=== PATIENT | female | born 1940 | race Caucasian/White ===

== ENCOUNTER → 2022-01-18 12:08 | Outpatient (BNVA) | payer MEDICARE, SELFPAY | PROVIDERS: Family Provider Family Medicine; PCP Family Medicine; Visit Provider Family Medicine | DX: M19.90 Unspecified osteoarthritis, unspecified site (principal); R79.89 Other specified abnormal findings of blood chemistry; R03.0 Elevated blood-pressure reading, without diagnosis of hypertension; F41.9 Anxiety disorder, unspecified; E11.9 Type 2 diabetes mellitus without complications | CPT/HCPCS: 80053; 80061; 82607; 83036 ==

== ENCOUNTER 2022-03-14 10:44 | Outpatient (CLI) | payer MEDICARE, SELFPAY ==
--- NOTE | 2022-03-14 10:58 | MM_ITS ---
WS: [id number] BILATERAL SCREENING DIGITAL BREAST TOMOSYNTHESIS MAMMOGRAM WITH CAD HISTORY: SCREENING COMPARISON: 02/23/2021, 02/11/2020, 12/01/2015 Bilateral CC and MLO views with tomosynthesis and synthetic mammography submitted. Computer aided det ection analyzed. Breast composition: There are scattered areas of fibroglandular density. No suspicious masses, microc alcifications or architectural distortion. Focal asymmetry seen in the anterior LEFT breast has been present on multiple prior examinations over multiple years. Benign calcifications in each breast. MM/[place] [id number] IMPRESSION: BI-RADS: 2-Benign FOLLOW UP: 1 Year Follow-up
== END 2022-03-14 10:45 | disposition home or self-care (01) ==
PROVIDERS: PCP Family Medicine; Visit Provider Family Medicine
DX: Z12.31 Encounter for screening mammogram for malignant neoplasm of breast (principal)
CPT/HCPCS: 77063; 77067

== ENCOUNTER → 2022-09-29 15:17 | Outpatient (BNVA) | payer MEDICARE, SELFPAY | PROVIDERS: PCP Family Medicine; Visit Provider Orthopaedic Surgery | DX: M48.062 Spinal stenosis, lumbar region with neurogenic claudication (principal); M47.816 Spondylosis without myelopathy or radiculopathy, lumbar region; M25.562 Pain in left knee; M25.561 Pain in right knee | CPT/HCPCS: 72110; 73560; 73565; 99204 ==

== ENCOUNTER 2022-10-11 13:19 | Outpatient (CLI) | payer MEDICARE, SELFPAY ==
--- NOTE | 2022-10-11 13:45 | MR_ITS ---
WS: [id number] MRI LUMBAR SPINE NONCONTRAST HISTORY: pain COMPARISON: 09/30/2014 TECHNIQUE: Sagittal and axial multisequence imaging is submitted. Advanced degenerative disc disease and degenerative curvature of the cervical, thoracic and lumbar sp eva. Increase in the lumbar lordosis and reverse S-shaped curvature of the lumbar spine. Significant progr ession of degenerative disc disease and spondylosis since 2014. No acute fractures or marrow edema. 3 to 4 mm retrolisthesis of L1-L4. Conus terminates normally at L1-2 disc level. L1-L2: Diffuse disc bulging and osteophytic ridging. Bilateral facet joint arthritis. Mild RIGHT suba rticular recess stenosis due to scoliosis and foraminal narrowing. L2-L3: Diffuse asymmetric annular disc bulging with bilateral facet joint arthritis, RIGHT greater th an LEFT. RIGHT facet arthritis encroaching into the thecal sac contacting the nerve roots. No central stenosis. Mild bilateral subarticular recess and foraminal stenosis. L3-L4: Diffuse annular disc bulging and osteophytic ridging with facet and ligamentum flavum arthriti s. Central disc protrusion. Moderate to severe central, bilateral subarticular recess and foraminal s tenosis. L4-L5: Mild annular disc bulging with facet and ligamentum flavum arthritis. LEFT subarticular recess and foraminal disc protrusion extends slightly below the disc space. Moderate to severe central with bilateral subarticular recess and LEFT foraminal stenosis. Mild RIGHT foraminal narrowing. There is significant encroachment upon the traversing LEFT L5 nerve root. L5-S1: Mild disc bulging and small vertebral body osteophytes. Moderate LEFT foraminal stenosis. Mild RIGHT foraminal stenosis. Severe LEFT facet joint arthritis. Mild ectasia aorta. Maximum diameter of 2.6 cm. MR/MR lumbar spine wo con* [id number] IMPRESSION: 1. Severe diffuse spondylosis throughout the cervical, thoracic and lumbar spi mary with progression since 2014. Degenerative scoliosis. 2. Moderate to severe central with bilateral subarticular recess and LEFT fora maría elena stenosis at L4-5. LEFT subarticular recess disc protrusion with significa nt contact on the traversing L5 nerve root. 3. Moderate to severe central, bilateral subarticular recess and foraminal soledad nosis at L3-4. 4. Mild bilateral subarticular recess and foraminal stenosis at L2-3. 5. Moderate LEFT foraminal stenosis at L5-S1 with severe LEFT facet joint arth ritis. 6. No marrow edema or acute fracture.
== END 2022-10-11 13:20 | disposition home or self-care (01) ==
LOC: RAD 13:20
PROVIDERS: PCP Family Medicine; Visit Provider Orthopaedic Surgery
DX: M41.9 Scoliosis, unspecified (principal)
CPT/HCPCS: 72148

== ENCOUNTER → 2022-11-08 12:59 | Outpatient (BNVA) | payer MEDICARE, SELFPAY | PROVIDERS: PCP Family Medicine; Visit Provider Orthopaedic Surgery | DX: M48.062 Spinal stenosis, lumbar region with neurogenic claudication (principal) | CPT/HCPCS: 99214 ==

== ENCOUNTER 2022-11-16 07:09 | Day surgery (SDC) | payer MEDICARE, SELFPAY ==
--- NOTE | 2022-11-11 10:54 | ECG_ITS ---
[facility] Test Date: 2022-11-11 Pat Name: Cheyenne Hall Department: Room: Gender: Female Carton Inspector: : 1940 Requested By: Kylie Kelsey Order Number: [id number] Quyen MD: Jessenia Gupta M.D. Measurements Intervals [place] Rate: 67 P: 48 FL: 142 QRS: 32 QRSD: 87 T: 32 QT: 374 QTc: 397 Interpretive Statements SINUS RHYTHM WITH SINUS ARRHYTHMIA No previous ECG available for comparison Electronically Signed On 11-11-2022 23:16:06 CDT by Jessenia Gupta M.D. [email or web address] countyModaMi[facility] [place].[employer]/[id number]
[2022-11-11 11:50] LABS: Anion Gap 16.7 (5-19); Blood Urea Nitrogen 14 mg/dL (8-23); Calcium 9.4 mg/dL (8.5-10.5); Carbon Dioxide 23 mmol/L (22-29); Chloride 103 mmol/L (98-107); Glucose 121 mg/dL (65-115); Osmolality Calculated 288 mOsm/kg (285-295); Potassium 4.7 mmol/L (3.5-5.1); Sodium 138 mmol/L (136-145)
--- NOTE | 2022-11-11 12:04 | ANES.PREANE2 ---
Pre-Anesthetic Assessment Height/Weight: Height 1.57 m Operation Date: 11/16/22 07:00 Proposed Procedures p Lumbar Spine Decompression: RT L4/5 22872(Right) - Travis Hernandes, Familial anesthetic complications: None Social No alcohol and No tobacco Exam alert, oriented x 3, clear to auscultation bilaterally and regular rate & rhythm Airway Mallampati: Class I Dentition: full CV/HEM Hypertension GI Gastroesophageal Reflux Disease Metabolic Diabetes Mellitus and Hyperlipidemia Anesthetic Plan ASA status: 3 Anesthesia: General Risk of > 500 ml blood loss (7ml/kg in children): No Medications/Allergies Home Medications Medication Instructions Recorded Confirmed Last Taken Type alprazolam 0.25 mg tablet (Xanax) 0.25 mg PO TID PRN anxiety #90 tabs 04/29/22 11/11/22 Unknown Rx meloxicam 15 mg tablet 15 mg PO DAILY arthritis pains #90 07/19/22 11/11/22 Unknown Rx tabs pantoprazole 40 mg tablet,delayed 40 mg PO DAILY for stomach #90 tabs 07/19/22 11/11/22 Unknown Rx release metformin 500 mg tablet 500 mg PO BID 09/29/22 11/11/22 Unknown History atorvastatin 10 mg tablet 10 mg PO DAILY 11/11/22 11/11/22 Unknown History losartan 50 mg PO DAILY 11/11/22 11/11/22 Unknown History Allergies Allergy/AdvReac Type Severity Reaction Status Date / Time Sulfa (Sulfonamide Allergy ALGY-Hives Verified 11/08/22 13:06 Antibiotics) Data Anesthesia 11/11/22 11:16 BMP 11/11/22 11:16 Sodium 138 Potassium 4.7 Chloride 103 Carbon Dioxide 23 BUN 14 Creatinine 0.8 Glucose 121 H Calcium 9.4 Cardiac Studies: No Data to Display
--- NOTE | 2022-11-14 09:38 | ANES.PAUD2 ---
Pre-Anesthetic Update Pre-Anesthetic Assessment: Date of Surgery/Procedure: 11/14/22 Proposed Procedure: Operation Date: 11/16/22 09:40 Proposed Procedures p Lumbar Spine Decompression: RT L4/5 [id number](Right) - Travis Hernandes, DO Any changes to Pre-Anesthetic Assessment?: No Exam: Pre-Anes Outpt Exam: alert, oriented x 3, clear to auscultation bilaterally and regular rate & rhythm Cardiac Studies: No Data to Display
[2022-11-16 07:24] VITALS: BP 170/91; PULSE 104; RESP 18; TEMP 36.3; O2SAT 95
[2022-11-16 07:28] VITALS: BMI 27.8
[2022-11-16] MEDS: sodium chloride 0.9% 1,000 ML 30 ML IV (07:41)
--- NOTE | 2022-11-16 09:12 | W.PM.OPSUD ---
Surgery/Procedure H&P Update DATE OF PROCEDURE: November 16, 2022 DATE H&P PERFORMED: 11/08/22 H&P UPDATE INFORMATION: I have reviewed H&P completed within last 30 days, I have examined patient prior to procedure and No changes to prior documentation PREOP DIAGNOSIS: L5 radiculopathy, lumbar stenosis L4-5 PLANNED PROCEDURE: Operation Date: 11/16/22 08:50 Proposed Procedures p Lumbar Spine Decompression: RT L4/5 [id number](Right) - Travis Hernandes DO
--- NOTE | 2022-11-16 09:32 | P.ANESUD_ITS ---
Pre-Anesthetic Update Pre-Anesthetic Assessment: Date of Surgery/Procedure: 11/16/22 Preop Melanie gnosis: L5 radiculopathy, lumbar stenosis L4-5 Proposed Procedure: Operation Date: 11/16/22 08:50 Proposed Procedures p Lumbar Spine Decompression: RT L4/5 [id number](Right) - Travis Hernandes, DO Any changes to Pre-Anesthetic Assessment?: No Last Intake: Intake Last Liquid Date 11/15/22 Last Liquid Time 21:30 Last Solid Date 11/15/22 Last Solid Time 21:30 Vitals: Temperature 97.4 F L 11/16/22 07:24 Temperature Source Temporal Artery S can 11/16/22 07:24 Pulse Rate 104 H 11/16/22 07:24 Respiratory Rate 18 11/16/22 07:24 Blood Pressure 170/91 11/16/22 07:24 Blood Pressure Ambika n 117 11/16/22 07:24 Pulse Oximetry 95 11/16/22 07:24 Oxygen Delivery Me thod 11/16/22 07:36 Exam: Pre-Anes Outpt Exam: alert, oriented x 3, clear to auscultation bilaterally and regular rate & rhythm Cardiac Studies: No Data to Display
[2022-11-16] MEDS: ceFAZolin 2,000 MG in sodium chloride 0.9% (plus) 50 ML 100 MG IV (09:56)
[2022-11-16] MEDS: lidocaine-epi 2% 20 mL INJ INJECTION (10:52)
[2022-11-16 11:22] VITALS: BP 146/88; PULSE 100; RESP 14; TEMP 36.1; O2SAT 99
[2022-11-16 11:25] VITALS: BP 138/76; PULSE 92; RESP 15; O2SAT 99
[2022-11-16 11:29] VITALS: BP 134/91; PULSE 97; RESP 19; O2SAT 99
--- NOTE | 2022-11-16 11:31 | P.OP_ITS ---
Operative Report Date of procedure: November 16, 2022 Pre-op diagnosis: Preop Diagnosis L5 radiculopathy, lumbar stenosis L4-5 Post-op diagnosis: same Procedure done: 1. L4/5 laminectomy with partial facetectomy Surgeon: Travis Hernandes Compensation And Benefits Analyst: Odell Darnell Compensation And Benefits Analyst: The children's nursery assistant, Odell Darnell, LIZETH was needed for his expertise under the microscope. He was important and necessary throughout the procedure to complete in a safe and timely manner. He assisted with patient positioning prepping and draping tissue retraction suctioning of the operative field protection of the dural sac and tissue closure Estimated blood loss (mL): 10 Procedure: 1. L4/5 laminectomy with partial facetectomy Patient is brought to the operative suite. After undergoing anesthesia they are placed in the prone position. All areas of impingement are well padded. Patient is then prepped and draped in the normal sterile fashion. A skin incision is made over the L4/5 level. This is confirmed under c-arm guidance. A series of dilators are passed and the tubular retractor is docked on the L4 lamina. A bovie is used to clear the soft tissue off the lamina and the L 4/5 facet joint. A high speed alla is then used to perform the laminectomy and take down the medial aspect of the L 4/5 facet joint. A kerrison rongeure was then used to take down the remaining lamina and smooth the edge of the laminectomy up to the point where the ligamentum flavum attaches. Attention was then brought to the medial aspect of the facet joint. The rem aining medial aspect of the superior and inferior aspect of the facet joint were taken down with the kerrison from the pedicle of L4 to L 5. The facet joint had significant hypertrophy. Attention was then brought to the Ligamentum Flavum. The ligament was taken down from the lamina of L4 to L5 and out medially to the remaining facet joint. The ligament was []. The dura was then exposed. The dura was in good repair. The L4 nerve was then traced with a curette out the L4/5 foramen and found to be adequately decompressed. The L5 nerve was traced with a curette around the L5 pedicle. The lateral recess was opened with a kerrison helping to further decompress the L5 nerve. Wound is then irrigated copiously with saline and surgiflo is used to stop any bleeding. The tubular retractor is removed and the wound is closed with vicryl and monocryl suture. Glue is then used to protect the wound. A sterile dressing is then placed. Patient was then placed in the supine position and transferred to the PACU in stable condition.
[2022-11-16 11:35] VITALS: BP 136/70; PULSE 93; RESP 18; TEMP 36.5; O2SAT 96
[2022-11-16] MEDS: HYDROcodone-acetaminophen 5-325 mg Tablet 1 TAB PO (11:50)
[2022-11-16 11:53] VITALS: BP 140/89; PULSE 80; RESP 18; O2SAT 96
--- NOTE | 2022-11-16 16:44 | ANE.PACU2 ---
Inpatient post-anesthesia follow up: Airway intact: Yes Vital signs: Temperature 97.7 F Pulse Rate 80 Respiratory Rate 18 Blood Pressure 140/89 Pulse Oximetry 96 Oxygen Delivery Me thod Room Air Oxygen Flow Rate 6 Fraction of Inspir ed Oxygen Hydration adequate: Yes Nausea and vomiting: No Pain level: 3 Mental status: Baseline
== END 2022-11-16 12:22 | disposition home or self-care (01) ==
PROVIDERS: Anesthesiology; PCP Family Medicine; Visit Provider Orthopaedic Surgery
PROC: (CPT 63005; principal; 2022-11-16 08:40)
DX: M48.061 Spinal stenosis, lumbar region without neurogenic claudication (principal); I10 Essential (primary) hypertension; K21.9 Gastro-esophageal reflux disease without esophagitis; E11.9 Type 2 diabetes mellitus without complications; E78.5 Hyperlipidemia, unspecified; Z79.84 Long term (current) use of oral hypoglycemic drugs
CPT/HCPCS: 63047; 72020; 76000; 80048; 93005; J0690; J1100; J1170; J2370; J2405; J2704; J2710; J3010; J3490; J7030

== ENCOUNTER 2022-11-17 19:26 | Emergency (ER) | payer MEDICARE, SELFPAY ==
[2022-11-17 19:33] VITALS: BP 219/115; PULSE 102; RESP 19; TEMP 36.7; O2SAT 96; BMI 27.6
--- NOTE | 2022-11-17 19:42 | W.ED.ALLEREA ---
HPI - Allergic Reaction General: Chief complaint: Allergic Reaction Stated complaint: possible allergic reaction Time Seen by Provider: 11/17/22 19:42 History of Present Illness: HPI narrative: Ms. Hall is an 82-year-old lady with history of back surgery yesterday presented to the emergency department for concern over allergic reaction. She reports taking hydrocodone for the first time and first noticing some redness on her cheeks. She subsequently has developed some tightness and itching in her throat as well as shortness of breath. Denies other signs of allergic reaction. Has not had hydrocodone before. No other specific changes in health, exacerbating, or alleviating factors identified. Onset (ago): hour(s) Exposure: medication Associated symptoms: Reports itching and other Severity: moderate Previous Allergic Reaction History: none Review of Systems General: Reports: 10 or more systems reviewed and unremarkable except in HPI and below PFSH ED PFSH: Medical History (Updated 11/30/22 @ 02:36 by Bari Araujo MD) GERD (gastroesophageal reflux disease) Lumbar stenosis with neurogenic claudication Surgical History (Updated 11/30/22 @ 02:36 by Bari Araujo MD) History of back surgery Physical Exam Const: COMMON NORMALS: alert GENERAL APPEARANCE: cooperative and well developed HENMT: COMMON NORMALS: normocephalic and atraumatic HEAD & SCALP: normocephalic and atraumatic THROAT: posterior oropharynx normal OTHER: No uvular edema or tongue edema, no evidence of posterior pharyngeal anatomy distortion. Eye: COMMON NORMALS: conjunctivae normal CONJUNCTIVA: Yes conjunctivae normal SCLERA: sclerae normal Neck/C-Spine: COMMON NORMALS: supple GENERAL: Yes trachea midline Resp: COMMON NORMALS: clear to auscultation bilaterally EFFORT & INSPECTION: Yes able to speak in complete sentences AUSCULTATION: clear to auscultation bilaterally Cardio: COMMON NORMALS: regular rate and regular rhythm RATE: regular rate RHYTHM: regular rhythm GI: COMMON NORMALS: Soft to palpation PALPATION: Yes Soft to palpation and No Tenderness to palpation present (GI) PERCUSSION: normal to percussion Extremity: GENERAL: Yes normal exam except as noted and No edema Neuro: COMMON NORMALS: moves all extremities SENSORIUM/ORIENTATION: Yes alert and No Orientation impaired Psych: COMMON NORMALS: mental status grossly normal and Normal thought process present THOUGHT PROCESS: Normal thought process present Skin: NARRATIVE SKIN EXAM: Erythematous rash on bilateral cheeks, no vesicular lesions Course Vital Signs: Vital signs: Vital Signs Temperature 98.0 F 11/17/22 19:33 Pulse Rate 94 11/17/22 21:24 Respiratory Rate 16 11/17/22 21:24 Blood Pressure 179/97 11/17/22 21:24 Pulse Oximetry 97 11/17/22 21:24 Oxygen Delivery Me thod 11/17/22 21:06 MDM - Allergic Reaction Medical Decision Making 82-year-old lady presenting to the emergency department for possible allergic reaction. She does have mild rash on her face. No evidence of anaphylaxis. Reports some improvement in symptoms spontaneously prior to arrival. Patient treated with steroids, analgesia, Pepcid, Benadryl with continued improvement. Most likely etiology of patient's symptoms is allergic reaction. I discussed possibility of class allergy however will try oxycodone. Medications for continued allergic reaction treatment to be prescribed. The results of ED evaluation were discussed with the patient including prescriptions and/or symptomatic cares (if applicable) including appropriate and responsible use, followup plan, and return precautions. The patient verbalized understanding and felt safe for discharge. Medical Records I reviewed the patient's medical records. Lab Data I reviewed the patient's lab results. Radiology Impressions Chest X-Ray 11/17/22 19:45 IMPRESSION: 1. No acute cardiopulmonary process. 2. Incidental/nonacute findings are listed in the report. Discharge Plan Discharge Patient Disposition: Home Clinical Impression: Allergic reaction Condition: Stable Prescriptions: New oxycodone 5 mg tablet 5 mg PO Q4H PRN (Reason: pain) Qty: 20 0RF EpiPen 2-Jaret 0.3 mg/0.3 mL auto-injector 0.3 mg IM Q10M PRN (Reason: anaphylaxis) Qty: 2 0RF Rx Instructions: for 2 doses No Action meloxicam 15 mg tablet 15 mg PO DAILY Qty: 90 3RF pantoprazole 40 mg tablet,delayed release (DR/EC) 40 mg PO DAILY Qty: 90 3RF metformin 500 mg tablet 500 mg PO BID alprazolam [Xanax] 0.25 mg tablet 0.25 mg PO TID PRN (Reason: anxiety) Qty: 90 5RF losartan 50 mg PO DAILY atorvastatin 10 mg tablet 10 mg PO DAILY hydrocodone-acetaminophen 5-325 mg tablet 1 - 2 tab PO .Q4-6H Qty: 40 0RF Discharge Orders: Discharge ED (Routine); Ordered 11/17/22 Ordered By: Bari Araujo Referrals: Cheko Palacios DO [Primary Care Provider] - Discharge Diet: Usual diet Discharge Activity: Limit activity as instructed Patient Instructions: General Allergic Reaction (ED), Opioid Safety Activity Restrictions/Additional Instructions: Thank you for visiting the emergency department. You were seen and evaluated for allergic reaction symptoms. We are pleased that you had improvement with treatment. The exact cause your symptoms is unclear that may be related to hydrocodone. I will prescribe oxycodone, as discussed this may also cause a reaction so please watch carefully. I will also prescribe Pepcid and a short course of steroids, you may use Benadryl per packaging directions for symptoms despite the other treatment. Please follow-up with your primary care provider. Return for recurrence of symptoms or anything else that you are concerned about and feel needs emergency department evaluation. For recurrence of severe reaction such as respiratory distress, tongue swelling, lip swelling I will also prescribe EpiPen. Coding Level of Care Code ED Franchise Manager for Rene Haney
--- NOTE | 2022-11-17 19:45 | XRR_ITS ---
PROCEDURE INFORMATION: Exam: XR Chest Exam date and time: 11/17/2022 7:50 PM Age: 82 years old Clinical indication: Shortness of breath; Additional info: SOB TECHNIQUE: Imaging protocol: Radiologic exam of the chest. Views: 1 view. COMPARISON: No relevant prior studies available. FINDINGS: Lungs: Lungs are clear bilaterally. Pleural spaces: No pleural effusion. No pneumothorax. Heart/Mediastinum: The cardiac silhouette is mildly enlarged. Mediastinal contours are unremarkable. Vasculature: Vascular calcifications in the aorta. Bones/joints: Degenerative changes in the spine and shoulders. Bones are diffusely osteopenic. Mild dextroscoliosis in the visualized spine. XR/XR chest 1V portable [id number] IMPRESSION: 1. No acute cardiopulmonary process. 2. Incidental/nonacute findings are listed in the report.
[2022-11-17 19:52] VITALS: O2SAT 94
[2022-11-17] MEDS: diphenhydrAMINE 50 mg/mL SDV 1mL 25 MG IVP (20:19)
[2022-11-17] MEDS: famotidine 20 mg/2 mL INJ 40 MG IVP (20:21)
[2022-11-17 20:22] VITALS: BP 185/84; PULSE 94; RESP 16; O2SAT 94
[2022-11-17 21:06] VITALS: BP 179/97; PULSE 89; RESP 16; O2SAT 96
[2022-11-17] MEDS: fentaNYL 50 mcg/mL INJ 2mL IVP (21:15)
[2022-11-17 21:24] VITALS: BP 179/97; PULSE 94; RESP 16; O2SAT 97
== END 2022-11-17 21:25 | disposition home or self-care (01) ==
PROVIDERS: Emergency Provider Emergency Medicine; PCP Family Medicine
DX: T78.40XA Allergy, unspecified, initial encounter (principal); Z79.84 Long term (current) use of oral hypoglycemic drugs; X58.XXXA Exposure to other specified factors, initial encounter
CPT/HCPCS: 71045; 96374; 96375; 99284; J1200; J2930; J3010; J3490

== ENCOUNTER → 2022-12-01 10:00 | Outpatient (BNVA) | payer MEDICARE, SELFPAY | PROVIDERS: PCP Family Medicine; Visit Provider Physician Assistant | DX: Z98.890 Other specified postprocedural states (principal) | CPT/HCPCS: 99024 ==

== ENCOUNTER → 2023-01-03 09:59 | Outpatient (BNVA) | payer MEDICARE, SELFPAY | PROVIDERS: PCP Family Medicine; Visit Provider Physician Assistant | DX: Z98.890 Other specified postprocedural states (principal) | CPT/HCPCS: 99024 ==

== ENCOUNTER 2023-03-16 09:59 | Outpatient (CLI) | payer MEDICARE, SELFPAY ==
--- NOTE | 2023-03-16 10:08 | MM_ITS ---
WS: [id number] BILATERAL SCREENING DIGITAL TOMOSYNTHESIS MAMMOGRAM WITH CAD HISTORY: SCREENING COMPARISON: 03/14/2022, 02/23/2021, 02/11/2020 Bilateral CC and MLO views with tomosynthesis and synthetic mammography submitted. Computer aided det ection analyzed. Breast composition: There are scattered areas of fibroglandular density. No suspicious masses, microc alcifications or architectural distortion. Focal 10 mm asymmetry in the anterior LEFT breast just lat eral to the nipple similar in size and appearance to the study from 2019. Benign calcifications withi n each breast. MM/[place] [id number] IMPRESSION: BI-RADS: 2-Benign FOLLOW UP: 1 Year Follow-up
== END 2023-03-16 10:00 | disposition home or self-care (01) ==
LOC: RAD 10:03 → MOBLMAM 10:07
PROVIDERS: PCP Family Medicine; Visit Provider Family Medicine
DX: Z12.31 Encounter for screening mammogram for malignant neoplasm of breast (principal)
CPT/HCPCS: 77063; 77067

== ENCOUNTER 2023-04-15 09:14 | Emergency (ER) | payer MEDICARE, SELFPAY ==
[2023-04-15 09:16] VITALS: BP 195/86; PULSE 78; RESP 14; TEMP 36.7; O2SAT 97; BMI 26.2
--- NOTE | 2023-04-15 09:37 | ED_ITS ---
HPI - General Adult General: Chief complaint: General Medical Stated complaint: swelling on right side of neck Time Seen by Provider: 04/15/23 09:19 Source: patient Mode of arrival: ambulatory Limitations: no limitations History of Present Illness: 82yo Female presents with family for evaluation of intermittent swelling on the right side of her jaw when she is eating. Patient reports that started last night, so she applied a warm compress and it went down. She states that this morning when she was eating toast it swelled up again, but again resolved after a warm compress. Patient reports that she does have discomfort when it is swollen, but not so much when it is back to normal. Patient states that she is currently on prednisone 5 mg tablets and is being treated by her primary care for some sort of viral infection that caused peeling to the bottom of her feet. Patient reports that she does have a follow-up with her primary care in the next couple of weeks, but the swelling was concerning. She denies any fever, chills, body aches, difficulty swallowing, feeling poorly, any other concern at this time. Associated symptoms: Deny headache(s), nausea, rash or vomiting Review of Systems General: Reports: 10 or more systems reviewed and unremarkable except in HPI and below Const: Denies: fever(s), chills or body aches ENMT: Reports: other (intermittent swelling right face); Denies: throat pain, odynophagia, mouth pain or dental pain GI: Denies: abdominal pain, nausea or vomiting Skin/Breast: Denies: rash or erythema Neuro: Denies: headache(s) [facility] ED PFSH: Medical History GERD (gastroesophageal reflux disease) Lumbar stenosis with neurogenic claudication Surgical History History of back surgery Physical Exam Const: COMMON NORMALS: no acute distress, patient oriented x3 and alert GENERAL APPEARANCE: cooperative ORIENTATION/CONSCIOUSNESS: Yes awake OTHER: Patient is sitting upright on the stretcher in no acute distress. She is able to give history with no difficulty. She is interactive with exam appropriately. Family is at bedside HENMT: COMMON NORMALS: normocephalic, atraumatic, external ears normal, Normal external nose present, moist oral mucous membranes and gingiva normal HEAD & SCALP: normocephalic and atraumatic FACE & SINUS: normal facial exam and face symmetric; no ecchymosis, no erythema and no edema NOSE: Normal external nose present EXTERNAL EAR: Yes external ears normal MOUTH: Normal oral and palatal mucosa present, lip normal, tongue normal and Normal salivary glands and ducts present; no malodorous breath Eye: GENERAL EYE: appearance normal, both eyes and all related structures Chest: CHEST: Yes Symmetrical chest wall rise Resp: COMMON NORMALS: normal respiratory effort Extremity: COMMON NORMALS: full ROM Neuro: COMMON NORMALS: patient oriented x3 and moves all extremities SENSORIUM/ORIENTATION: Yes alert Psych: COMMON NORMALS: cooperative and speech normal ATTITUDE: Yes calm SPEECH: Yes normal speech Course Vital Signs: Vital signs: Vital Signs Temperature 98.0 F 04/15/23 09:16 Pulse Rate 78 04/15/23 09:16 Respiratory Rate 14 04/15/23 09:16 Blood Pressure 195/86 04/15/23 09:16 Pulse Oximetry 97 04/15/23 09:16 Oxygen Delivery Me thod Room Air 04/15/23 09:16 MDM - General Adult Medical Decision Making 82yo Female here with friend/family for intermittent swelling of the right face/jaw that started last night when she was eating, resolved with warm compresses, but came back this morning when she was eating toast and again resolved with warm compress. Patient reports that she does not have any pain or discomfort when the swelling has resolved. She denies any fever, chills, body aches, difficulty swallowing, previous incidences, any other concerns at this time. Patient is nontoxic in appearance. Vital signs are stable. Exam is benign. Discussed with patient and family this is likely a salivary stone. Discussed with patient increasing fluids and saliva will help with the passage of the stone. Patient did report relief as she was concerned of the intermittent swelling. Discussed signs/symptoms of infected salivary stone. Recommend she follow-up with primary care Monday with an update of symptoms and possible recheck. Advised return to the emergency department if any rapid worsening symptoms and as needed. Differential Diagnosis Salivary stone, infected salivary stone, dental infection Discharge Plan Discharge Patient Disposition: Home Clinical Impression: Salivary stone Condition: Stable Prescriptions: No Action prednisone 5 mg tablet 5 mg PO DAILY Qty: 90 1RF oxycodone 5 mg tablet 5 mg PO Q4H PRN (Reason: pain) 30 Days Qty: 60 0RF alprazolam [Xanax] 0.25 mg tablet 0.25 mg PO TID PRN (Reason: anxiety) Qty: 90 5RF meloxicam 15 mg tablet 15 mg PO DAILY Qty: 90 3RF pantoprazole 40 mg tablet,delayed release (DR/EC) 40 mg PO DAILY Qty: 90 3RF metformin 500 mg tablet 500 mg PO BID losartan 50 mg PO DAILY EpiPen 2-Jaret 0.3 mg/0.3 mL auto-injector 0.3 mg IM Q10M PRN (Reason: anaphylaxis) Qty: 2 0RF Rx Instructions: for 2 doses Discharge Orders: Discharge ED (Routine); Ordered 04/15/23 Ordered By: Victor Hugo Stevens Referrals: Cheko Palacios DO [Primary Care Provider] - Discharge Diet: Usual diet Discharge Activity: Resume usual activity Patient Instructions: Sialoadenitis (ED), Salivary Stone Activity Restrictions/Additional Instructions: Suck on hard candy or chew sugarless gum to get your saliva flowing. Sour and tart flavors such as lemon and orange will help get saliva to flow. This will help keep your mouth moist and help push out a stone blocking your salivary duct. If you develop fever, chills, swelling that doesn't resolve, or redness with swelling over the area, it may have developed into an infection and would need to be evaluation and potentially given antibiotics Follow up with your doctor, call Monday with an update and for a possible recheck Return to the emergency department if rapid worsening and as needed Coding Level of Care Code ED Director Of Laboratory Operations for Rene Haney
[2023-04-15 10:05] VITALS: RESP 18; O2SAT 98
== END 2023-04-15 10:06 | disposition home or self-care (01) ==
PROVIDERS: Emergency Provider Nurse Practitioner; PCP Family Medicine
DX: K11.5 Sialolithiasis (principal)
CPT/HCPCS: 99282

== ENCOUNTER → 2023-05-04 14:58 | Outpatient (BNVA) | payer MEDICARE, SELFPAY | PROVIDERS: PCP Family Medicine; Visit Provider Family Medicine | DX: F41.9 Anxiety disorder, unspecified (principal); G89.29 Other chronic pain; M19.90 Unspecified osteoarthritis, unspecified site; R23.4 Changes in skin texture; Z13.6 Encounter for screening for cardiovascular disorders; E55.9 Vitamin D deficiency, unspecified; Z79.899 Other long term (current) drug therapy | CPT/HCPCS: 80053; 80061; 82652; 83036; 85025 ==

== ENCOUNTER 2023-08-02 09:52 | Emergency (ER) | payer MEDICARE, SELFPAY ==
[2023-08-02 09:59] VITALS: BP 172/88; PULSE 94; RESP 16; TEMP 36.6; O2SAT 97; BMI 25.8
[2023-08-02 10:51] LABS: Basophils # 0.1 10^3/uL (0.0-0.1); Basophils % 0.7 %; Eosinophils # 0.2 10^3/uL (0.0-0.8); Lymphocytes # 2.2 10^3/uL (0.8-4.8); Lymphocytes % 27.2 %; Mean Corpuscular HGB Conc 33.3 g/dL (30-55); Mean Corpuscular Hemoglobin 29.2 pg (27-33); Mean Corpuscular Volume 87.7 fl (85-98); Mean Platelet Volume 9.2 fL (7.4-10.4); Monocytes # 0.6 10^3/uL (0.2-0.9); Monocytes % 7.5 %; Neutrophils # 5.09 10^3/uL (1.8-7.7); Neutrophils % 62.2 %; Nucleated Red Blood Cells % 0 %; Platelet Count 338 10^3/cmm (157-399); Red Blood Count 4.56 10^6/uL (3.85-5.65); Red Cell Distribution Width 12.6 % (12.1-15.1); White Blood Count 8.17 10^3/uL (3.29-11.43)
[2023-08-02 11:09] LABS: Alanine Aminotransferase 16 U/L (0-33); Albumin Level 4.6 g/dL (3.5-5.2); Alkaline Phosphatase 65 U/L (35-105); Aspartate Amino Transferase 18 U/L (0-32); Blood Urea Nitrogen 12 mg/dL (8-23); Calcium 10.3 mg/dL (8.5-10.5); Carbon Dioxide 25 mmol/L (22-29); Chloride 95 mmol/L (98-107); Creatinine Clr Calc Pharmacy 47.0175; Globulin 3.4 g/dL (1.3-4.6); Glucose 146 mg/dL (65-115); Lipase 25 U/L (13-60); Osmolality Calculated 280 mOsm/kg (285-295); Sodium 134 mmol/L (136-145); Total Bilirubin 0.5 mg/dL (0.15-1.2)
--- NOTE | 2023-08-02 11:09 | CT_ITS ---
WS: [id number] CT ABDOMEN PELVIS TECHNIQUE: Contrast-enhanced CT of the abdomen and pelvis with coronal and sagittal reformatted image s. CLINICAL INFORMATION: abd pain COMPARISON: CT abdomen pelvis 2012 DLP: 475.[address] scans at [facility] use at least one of these dose optimization techniques: automated e xposure control; mA and/or kV adjustment per patient size (includes targeted exams where dose is matc hed to clinical indication); or iterative reconstruction. FINDINGS: Diffuse fatty infiltration of the liver. Normal portal vein and splenic vein. Fluid distended hydropi c gallbladder. No gallbladder wall thickening or pericholecystic fluid. Dilated cystic duct and commo n bile duct. Common bile duct measures approximately 10 mm at the pancreatic head. This can be furthe r evaluated with ultrasound and MRCP. Incidental hepatic cyst in the LEFT hepatic lobe. Bibasilar atelectasis. Adrenal glands are normal. Normal renal parenchymal enhancement. No hydronephr osis. Fatty atrophy of the pancreas. Normal portal vein and splenic vein. Splenic granulomas. Normal GE junction. Aneurysmal infrarenal abdominal aorta measuring 2.8 x 2.4 cm. AP by transverse Few sigmoid diverticuli. No evidence of high-grade small or large bowel obstruction. Advanced arthritis RIGHT hip with [id number] articulation and subchondral cystic change. Lumbar sco liosis. IMPRESSION: 1. Fluid distended hydropic gallbladder with dilated common bile duct measuring up to 10 mm. Recomme nd further evaluation with ultrasound gallbladder and MRCP. 2. No significant gallbladder wall thickening or pericholecystic fluid. No visualized cholelithiasis . 3. Diffuse fatty infiltration of the liver. 4. Lumbar scoliosis. 5. Advanced arthritis RIGHT hip with subchondral cystic change and [id number] articulation. 6. Aneurysmal infrarenal abdominal aorta measuring 2.8 x 2.4 cm. AP by transverse Notified Lee Ann Childs MD at 08/02/2023 11:58 AM.
--- NOTE | 2023-08-02 11:12 | ED_ITS ---
HPI - Abdominal Pain 2 General: Chief Complaint: Abdominal Pain Stated Complaint: abd pain Time Seen by Provider: 08/02/23 10:11 Source: patient Mode of arrival: ambulatory Limitations: no limitations History of Present Illness: 83-year-old female states that she is hercules ving diffuse abdominal pain for the last 2 days. She states that it hurts all over but worse in her lower abdomen. She denies any vomiting or diarrhea as she had constipation the past states she takes MiraLAX. She denies any fevers denies any worsening proving factors. Associated Symptoms: Denies chills, diarrhea, dysuria, fever(s), nausea and vomiting Review of Systems 2 Const: Denies: fever(s), chills, body aches or change in appetite ENMT: Denies: throat pain or dental pain Card: Denies: chest pain Resp: Denies: dyspnea GI: Reports: abdominal pain; Denies: nausea, vomiting or diarrhea : Denies: dysuria Musc: Denies: neck pain or back pain Skin/Breast: Denies: rash Neuro: Denies: headache(s) PFSH ED 2 PFSH: Medical History Lumbar stenosis with neurogenic claudication GERD (gastroesophageal reflux disease) Surgical History History of back surgery Physical Exam 2 Const: COMMON NORMALS: no acute distress, patient oriented x3 and healthy appearing HENMT: COMMON NORMALS: normocephalic and atraumatic HEAD & SCALP: n ormocephalic and atraumatic Neck/C-Spine: COMMON NORMALS: full ROM and supple Chest: COMMONS NORMALS: normal inspection of the chest and normal palpation of entire chest wall Resp: COMMON NORMALS: normal respiratory effort, No retractions, No use of accessory muscles and clear to auscultation bilaterally AUSCULTATION: clear to auscultation bilaterally Cardio: COMMON NORMALS: regular rate, regular rhythm and No murmurs present (Cardio) RATE: regular rate RHYTHM: regular rhythm GI: COMMON NORMALS: Normal to inspection, nondistended, normoactive bowel sounds present, Soft to palpation and no masses PALPATION: Yes Soft to palpation OTHER: diffuse tenderness Extremity: COMMON NORMALS: normal to inspection and full ROM Neuro: COMMON NORMALS: patient oriented x3, moves all extremities and no focal motor deficits Psych: COMMON NORMALS: mental status grossly normal, Normal thought process present and cooperative THOUGHT PROCESS: Normal thought process present Skin: COMMON NORMALS: no rashes or lesions noted and no wounds GENERAL SKIN EXAM: no rashes or lesions noted Course 2 Vital Signs: Vital signs: Vital Signs Temperature 98 F 08/02/23 09:59 Pulse Rate 78 08/02/23 12:00 Respiratory Rate 16 08/02/23 12:00 Blood Pressure 185/104 08/02/23 12:00 Pulse Oximetry 96 08/02/23 12:00 Oxygen Delivery Me thod Room Air 08/02/23 12:00 MDM - Abdominal Pain Medical Decision Making Patient presents here with abdominal pain going on for couple days CT showed large gallbladder no signs of cholecystitis CT was otherwise normal blood work here is all normal as well liver enzymes bilirubin are normal her exam at discharge benign she has had hypertension here but did not take her high blood pressure meds this morning she is stable for discharge we will get her follow-up with general surgery return if worsening. Medical Records I reviewed the patient's medical records. Lab Data I reviewed the patient's lab results. 08/02/23 10:40 08/02/23 10:40 Labs/Radiology: Laboratory Results WBC 8.17 10^3/uL (3.29-11.43) 08/02/23 10:40 RBC 4.56 10^6/uL (3.85-5.65) 08/02/23 10:40 Hgb 13.30 g/dL (11.27-16.99) 08/02/23 10:40 Hct 40.0 % (36-47) 08/02/23 10:40 MCV 87.7 fl (85-98) 08/02/23 10:40 MCH 29.2 pg (27-33) 08/02/23 10:40 MCHC 33.3 g/dL (30-55) 08/02/23 10:40 RDW 12.6 % (12.1-15.1) 08/02/23 10:40 Plt Count 338 10^3/cmm (157-399) 08/02/23 10:40 MPV 9.2 fL (7.4-10.4) 08/02/23 10:40 Neut % (Auto) 62.2 % 08/02/23 10:40 Lymph % (Auto) 27.2 % 08/02/23 10:40 Long % (Auto) 7.5 % 08/02/23 10:40 Eos % (Auto) 2.0 % 08/02/23 10:40 Baso % (Auto) 0.7 % 08/02/23 10:40 Neut # (Auto) 5.09 10^3/uL (1.8-7.7) 08/02/23 10:40 Lymph # (Auto) 2.2 10^3/uL (0.8-4.8) 08/02/23 10:40 Long # (Auto) 0.6 10^3/uL (0.2-0.9) 08/02/23 10:40 Eos # (Auto) 0.2 10^3/uL (0.0-0.8) 08/02/23 10:40 Baso # (Auto) 0.1 10^3/uL (0.0-0.1) 08/02/23 10:40 Nucleated RBC % (auto) 0 % 08/02/23 10:40 Nucleated RBCs # 0.0 /100WBC 08/02/23 10:40 Sodium 134 mmol/L (136-145) L 08/02/23 10:40 Potassium 4.0 mmol/L (3.5-5.1) 08/02/23 10:40 Chloride 95 mmol/L (98-107) L 08/02/23 10:40 Carbon Dioxide 25 mmol/L (22-29) 08/02/23 10:40 Anion Gap 18.0 (5-19) 08/02/23 10:40 BUN 12 mg/dL (8-23) 08/02/23 10:40 Creatinine 0.8 mg/dL (0.5-0.9) 08/02/23 10:40 GFR Calculation Not Reportable 08/02/23 10:40 Glucose 146 mg/dL (65-115) H 08/02/23 10:40 Calculated Osmolality 280 mOsm/kg (285-295) L 08/02/23 10:40 Calcium 10.3 mg/dL (8.5-10.5) 08/02/23 10:40 Total Bilirubin 0.5 mg/dL (0.15-1.2) 08/02/23 10:40 AST 18 U/L (0-32) 08/02/23 10:40 ALT 16 U/L (0-33) 08/02/23 10:40 Alkaline Phosphatase 65 U/L (35-105) 08/02/23 10:40 Total Protein 8.0 g/dL (6.6-8.7) 08/02/23 10:40 Albumin 4.6 g/dL (3.5-5.2) 08/02/23 10:40 Globulin 3.4 g/dL (1.3-4.6) 08/02/23 10:40 Lipase 25 U/L (13-60) 08/02/23 10:40 Urine Color Dark yellow (Yellow) 08/02/23 11:19 Urine Appearance Clear (CLEAR) 08/02/23 11:19 Urine pH 6 (5-7) 08/02/23 11:19 Ur Specific [place] 1.020 (1.005-1.030) 08/02/23 11:19 Urine Protein 1+ (Negative) H 08/02/23 11:19 Urine Glucose (UA) Norm (Normal) 08/02/23 11:19 Urine Ketones Negative (Negative) 08/02/23 11:19 Urine Blood Neg (Negative) 08/02/23 11:19 Urine Nitrate Negative (Negative) 08/02/23 11:19 Urine Bilirubin Neg (Negative) 08/02/23 11:19 Urine Urobilinogen 1 mg/dL (Negative) H 08/02/23 11:19 Ur Leukocyte Esterase Negative (Negative) 08/02/23 11:19 Urine RBC 0-4 /hpf (0-2) H 08/02/23 11:19 Urine WBC 0-4 /hpf (0-5) H 08/02/23 11:19 Ur Squamous Epith Cells 0-4 /hpf (0-5) H 08/02/23 11:19 Amorphous Sediment Not Reportable 08/02/23 11:19 Urine Bacteria Trace /hpf (NONE) 08/02/23 11:19 Hyaline Casts 10-15 /lpf H 08/02/23 11:19 Fine Granular Casts Rare /lpf 08/02/23 11:19 Urine Mucus 2+ /hpf 08/02/23 11:19 All radiology interpretation(s) finalized by discharge Discharge Plan Discharge Patient Disposition: Home Clinical Impression: Abdominal pain Qualifiers: Abdominal location: generalized Qualified Code(s): R10.84 - Generalized abdominal pain Condition: Stable Prescriptions: No Action metformin 500 mg tablet 500 mg PO BID oxycodone 5 mg tablet 5 mg PO Q4H PRN (Reason: pain) 30 Days Qty: 120 0RF alprazolam [Xanax] 0.25 mg tablet 0.25 mg PO TID PRN (Reason: anxiety) Qty: 90 5RF epinephrine [EpiPen 2-Jaret] 0.3 mg/0.3 mL auto-injector 0.3 mg IM Q10M PRN (Reason: anaphylaxis) Qty: 2 0RF Rx Instructions: for 2 doses losartan 50 mg tablet 50 mg PO QAM latanoprost 0.005 % drops 1 drp ophthalmic (eye) BEDTIME Rx Instructions: both eyes digestive enzymes Capsule 1 cap PO DAILY Rx Instructions: administer with food; swallow whole; do not crush/chew/dissolve/break/cut Elyse-C 500 mg Tablet 1,000 mg PO DAILY vitamin B complex Tablet 1 tab PO DAILY timolol maleate 0.5 % drops 1 drp ophthalmic (eye) BID Rx Instructions: both eyes Aspercreme Arthritis Pain 1 % Gel 2 - 4 g TOPICAL QID PRN (Reason: Pain) [place] 3 Fish Oil 684-1,200 mg Capsule,Delayed Release(Dr/Ec) 1 cap PO DAILY meloxicam 15 mg tablet 15 mg PO QAM prednisone 5 mg tablet 5 mg PO QAM pantoprazole 40 mg tablet,delayed release (DR/EC) 40 mg PO BEDTIME Discharge Orders: Discharge ED (Routine); Ordered 08/02/23 Ordered By: Lee Ann Childs Referrals: Russ De La Paz DO [Physician] - 1-3 days Cheko Palacios DO [Primary Care Provider] - Discharge Diet: Advance as tolerated Discharge Activity: Resume usual activity Patient Instructions: Abdominal Pain (ED) Coding Level of Care Code ED Education Site Manager for Rene Haney
[2023-08-02 11:30] LABS: Add Urine Microscopic? YES; Bilirubin Urine Neg (Negative); Blood Urine Neg (Negative); Glucose Urine UA Norm (Normal); Ketones Urine Negative (Negative); Leukocyte Esterase Urine Negative (Negative); Nitrate Urine Negative (Negative); Protein Urine 1+ (Negative); Urine Appearance Clear (CLEAR); Urine Color Dark Yellow (Yellow); Urobilinogen Urine 1 mg/dL (Negative); pH Urine 6 (5-7)
[2023-08-02 11:39] LABS: RBC Urine 0-4 /hpf (0-2); Squamous Epithelial Cell Urine 0-4 /hpf (0-5); WBC Urine 0-4 /hpf (0-5)
[2023-08-02] MEDS: iohexol 350 mg/mL 500 mL Btl (per mL) IV (11:39)
[2023-08-02 11:40] LABS: Add Urine Culture? No; Bacteria Urine TRACE /hpf; Fine Granular Casts Urine RARE /lpf; Mucus Urine 2+ /hpf
[2023-08-02 11:42] VITALS: BP 159/104; PULSE 83; RESP 14; O2SAT 98
--- NOTE | 2023-08-02 11:56 | US_ITS ---
WS: [id number] ULTRASOUND ABDOMEN LIMITED CLINICAL INFORMATION: ruq pain COMPARISON: None. FINDINGS: Liver Size: Mild hepatomegaly. Echogenicity: Coarse surface nodularity: None. Mass (size and location): Incidental simple hepatic cyst measuring 11 x 10 mm Bile ducts Intrahepatic ducts: Normal. Common bile duct diameter: 1.1 cm. Gallbladder Fluid distended hydropic gallbladder. Gallstones: None. Gallbladder sludge: None. Gallbladder wall thickening: None. Pericholecystic fluid: None. Sonographic Ridley sign: Absent. Pancreas Normal as visualized. Right kidney: Normal. Hydronephrosis: None. Size: 11.0 cm x 4.1 cm x 4.9 cm. Abdominal aorta and IVC Visualized portions are normal. Ascites: None. IMPRESSION: 1. Dilated common bile duct to the pancreatic head measuring 10 mm. No visualized choledocholithiasi s. Recommend follow-up with MRCP. 2. Hydropic fluid distended gallbladder. No cholelithiasis. 3. No evidence of gallbladder wall thickening or pericholecystic fluid. 4. Diffuse fatty infiltration of the liver.
[2023-08-02] MEDS: hyDRALAzine 20 mg/mL INJ 1 mL 10 MG IVP (11:59)
[2023-08-02 12:00] VITALS: BP 185/104; PULSE 78; RESP 16; O2SAT 96
--- NOTE | 2023-08-02 12:22 | ECG_ITS ---
[facility] Test Date: 2023-08-02 Pat Name: Cheyenne Hall Department: Room: Gender: Female [employer] [place] [place]: : [id number] Requested By: Lee Ann Childs Order Number: [id number] Quyen MD: Jessenia Gupta M.D. Measurements Intervals [place] Rate: 90 P: 74 AL: 135 QRS: 66 QRSD: 83 T: 45 QT: 342 QTc: 420 Interpretive Statements SINUS RHYTHM LEFT VENTRICULAR HYPERTROPHY AND ST-T CHANGE [VOLTAGE CRITERIA PLUS ST/T ABNORMALITY] Compared to ECG 11/11/2022 11:40:38 Left ventricular hypertrophy now present ST (T wave) deviation now present Sinus arrhythmia no longer present Electronically Signed On 08-02-2023 21:47:33 EMPLOYEE RELATIONS CONSULTANT by Jessenia Gupta M.D. [id number]
[2023-08-02] MEDS: labetalol 5 mg/mL SDV 20mL 10 MG IVP (12:34)
[2023-08-02 12:35] VITALS: BP 174/88; PULSE 93; RESP 21; O2SAT 97
[2023-08-02 13:00] VITALS: BP 160/84; PULSE 83; RESP 10; O2SAT 96
--- NOTE | 2023-08-02 18:53 | DCPLANNER ---
Message was sent to general surgery/ Dr. De La Paz on 08/02/23 at 1432. Clinic to contact patient.
== END 2023-08-02 13:07 | disposition home or self-care (01) ==
PROVIDERS: Family Medicine; Emergency Provider Emergency Medicine; PCP Family Medicine
DX: R10.84 Generalized abdominal pain (principal); Z79.84 Long term (current) use of oral hypoglycemic drugs
CPT/HCPCS: 36415; 74177; 76705; 80053; 81001; 83690; 85025; 93005; 96374; 96375; 99285; J0360; J3490; Q9967

== ENCOUNTER 2023-08-06 08:41 | Emergency (ER) | payer MEDICARE, SELFPAY ==
[2023-08-06 09:09] VITALS: BP 174/79; PULSE 97; RESP 20; TEMP 36.9; O2SAT 97
--- NOTE | 2023-08-06 09:14 | CTR_ITS ---
PROCEDURE INFORMATION: Exam: CT Abdomen And Pelvis With Contrast Exam date and time: 08/06/2023 10:01 AM Age: 83 years old Clinical indication: Abdominal pain; Epigastric; Additional info: Rlq pain TECHNIQUE: Imaging protocol: Computed tomography of the abdomen and pelvis with contrast. Radiation optimization: All CT scans at this facility use at least one of these dose optimization techniques: automated exposure control; mA and/or kV adjustment per patient size (includes targeted exams where dose is matched to clinical indication); or iterative reconstruction. Contrast material: OMNI 350; Contrast volume: 100 ml; Contrast route: INTRAVENOUS (IV); REPORTING DATA: Count of CT and Cardiac NM exams in prior 12 months: This patient has received [address] and 0 known cardiac nuclear medicine studies in the 12 months prior to the current study. COMPARISON: CT abdomen pelvis w con* [id number] 08/02/2023 11:35 AM RADIATION DOSE METRICS: Total DLP (mGy-cm): 469.34 FINDINGS: Lungs: Bibasilar linear atelectasis and lung scarring. Liver: Liver is normal size and shape. 0.9 centimeters left hepatic lobe nonspecific hypodensity however likely representing a cyst. No intrahepatic biliary duct dilatation. Gallbladder and bile ducts: The gallbladder is dilated with similar appearance from prior imaging dated 08/02/2023. The common bile duct measures up to 1.1 centimeters Pancreas: No peripancreatic fat stranding, the proximal main pancreatic duct measures up to 0.4 centimeters. Spleen: Normal spleen. Multiple splenules with the largest measuring approximately 1.1 centimeters Adrenal glands: No adrenal nodule. Kidneys and ureters: Symmetrical bilateral enhancement. Mild right-sided hydronephrosis and proximal hydroureter no obstructing pathology. Stomach and bowel: Stomach small bowel are nondilated, no evidence of mechanical bowel obstruction. Scattered diverticuli without any evidence of acute diverticulitis. Appendix: Appendix is air-filled and normal. Intraperitoneal space: No ascites or free air. Vasculature: Abdominal aortic aneurysm measuring up to 2.7 centimeters.0 Lymph nodes: No enlarged lymph nodes. Urinary bladder: Bladder is collapsed, there is diffuse bladder wall thickening and hyperenhancement. Reproductive: No adnexal masses. Bones/joints: Unremarkable. No acute fracture. Soft tissues: Marked degenerative changes of the right hip with osteoarthritic subchondral cystic changes. Marked degenerative changes of the lumbar spine. CT/CT abdomen pelvis w con* [id number] IMPRESSION: 1. Dilated gallbladder, dilated common bile duct measuring 1.1 centimeters and borderline dilated main pancreatic duct measuring up to 0.4 centimeters. Further evaluation with MRI MRCP is recommended to rule out stricture or obstructing lesion. 2. Infrarenal abdominal aortic aneurysm measuring 2.7 in AP dimension. 3. Diffuse bladder wall thickening hyperenhancement, correlate with urinalysis for any evidence of cystitis. 4. Appendix is normal.
--- NOTE | 2023-08-06 09:15 | ED_ITS ---
HPI - Abdominal Pain 2 General: Chief Complaint: Abdominal Pain Stated Complaint: abd pain, nausea, headache Time Seen by Provider: 08/06/23 08:43 Source: patient Mode of arrival: ambulatory Limitations: no limitations History of Present Illness: 83-year-old female who states she having right lower quadrant abdominal pain over the last 4 to 5 days she seen here on CT ultrasound showed an enlarged gallbladder was otherwise negative she has been taking oxycodone at home states her pain got much worse last night. Pain is sharp in nature in her right lower quadrant radiates to her back she denies any fever denies any dysuria its much worse with movement improved with rest. Associated Symptoms: Denies chills, diarrhea, dysuria, fever(s), nausea and vomiting Review of Systems 2 Const: Denies: fever(s), chills, body aches or change in appetite ENMT: Denies: throat pain or dental pain Card: Denies: chest pain Resp: Denies: dyspnea GI: Reports: abdominal pain; Denies: nausea, vomiting or diarrhea : Denies: dysuria Musc: Denies: neck pain or back pain Skin/Breast: Denies: rash Neuro: Denies: headache(s) PFSH ED 2 PFSH: Medical History Lumbar stenosis with neurogenic claudication GERD (gastroesophageal reflux disease) Surgical History History of back surgery Physical Exam 2 Const: COMMON NORMALS: no acute distress, patient oriented x3 and healthy appearing HENMT: COMMON NORMALS: normocephalic and atraumatic HEAD & SCALP: n ormocephalic and atraumatic Neck/C-Spine: COMMON NORMALS: full ROM and supple Chest: COMMONS NORMALS: normal inspection of the chest and normal palpation of entire chest wall Resp: COMMON NORMALS: normal respiratory effort, No retractions, No use of accessory muscles and clear to auscultation bilaterally AUSCULTATION: clear to auscultation bilaterally Cardio: COMMON NORMALS: regular rate, regular rhythm and No murmurs present (Cardio) RATE: regular rate RHYTHM: regular rhythm GI: COMMON NORMALS: Normal to inspection, nondistended, normoactive bowel sounds present, Soft to palpation and no masses PALPATION: Yes Soft to palpation and Yes Tenderness to palpation present (GI) Details: RLQ Extremity: COMMON NORMALS: normal to inspection and full ROM Neuro: COMMON NORMALS: patient oriented x3, moves all extremities and no focal motor deficits Psych: COMMON NORMALS: mental status grossly normal, Normal thought process present and cooperative THOUGHT PROCESS: Normal thought process present Skin: COMMON NORMALS: no rashes or lesions noted and no wounds GENERAL SKIN EXAM: no rashes or lesions noted Course 2 Vital Signs: Vital signs: Vital Signs Temperature 98.4 F 08/06/23 09:09 Pulse Rate 88 08/06/23 11:17 Respiratory Rate 17 08/06/23 10:11 Blood Pressure 168/95 08/06/23 11:17 Pulse Oximetry 96 08/06/23 11:17 Oxygen Delivery Me thod Room Air 08/06/23 10:34 MDM - Abdominal Pain Medical Decision Making Patient presents here with abdominal pain is mainly right lower quadrant pain she not having any right upper quadrant pain her blood work here is all normal CT again showed enlarged gallbladder does have common bile duct dilatation but has no signs of obstruction her bilirubin and lipase and liver enzymes are all normal she has follow-up with surgeon on Monday she stable for discharge return if worsening she understands agrees to plan. Medical Records I reviewed the patient's medical records. Lab Data I reviewed the patient's lab results. 08/06/23 09:08 08/06/23 09:08 Labs/Radiology: Radiology Impressions Abdomen/Pelvis CT 08/06/23 09:14 IMPRESSION: 1. Dilated gallbladder, dilated common bile duct measuring 1.1 centimeters and borderline dilated main pancreatic duct measuring up to 0.4 centimeters. Further evaluation with MRI MRCP is recommended to rule out stricture or obstructing lesion. 2. Infrarenal abdominal aortic aneurysm measuring 2.7 in AP dimension. 3. Diffuse bladder wall thickening hyperenhancement, correlate with urinalysis for any evidence of cystitis. 4. Appendix is normal. Laboratory Results WBC 9.50 10^3/uL (3.29-11.43) 08/06/23 09:08 RBC 4.64 10^6/uL (3.85-5.65) 08/06/23 09:08 Hgb 13.50 g/dL (11.27-16.99) 08/06/23 09:08 Hct 40.9 % (36-47) 08/06/23 09:08 MCV 88.1 fl (85-98) 08/06/23 09:08 MCH 29.1 pg (27-33) 08/06/23 09:08 MCHC 33.0 g/dL (30-55) 08/06/23 09:08 RDW 12.3 % (12.1-15.1) 08/06/23 09:08 Plt Count 331 10^3/cmm (157-399) 08/06/23 09:08 MPV 9.5 fL (7.4-10.4) 08/06/23 09:08 Neut % (Auto) 72.1 % 08/06/23 09:08 Lymph % (Auto) 18.3 % 08/06/23 09:08 [place] % (Auto) 7.5 % 08/06/23 09:08 Eos % (Auto) 1.2 % 08/06/23 09:08 Baso % (Auto) 0.7 % 08/06/23 09:08 Neut # (Auto) 6.85 10^3/uL (1.8-7.7) 08/06/23 09:08 Lymph # (Auto) 1.7 10^3/uL (0.8-4.8) 08/06/23 09:08 [place] # (Auto) 0.7 10^3/uL (0.2-0.9) 08/06/23 09:08 Eos # (Auto) 0.1 10^3/uL (0.0-0.8) 08/06/23 09:08 Baso # (Auto) 0.1 10^3/uL (0.0-0.1) 08/06/23 09:08 Nucleated RBC % (auto) 0 % 08/06/23 09:08 Nucleated RBCs # 0.0 /100WBC 08/06/23 09:08 Sodium 129 mmol/L (136-145) L 08/06/23 09:08 Potassium 4.3 mmol/L (3.5-5.1) 08/06/23 09:08 Chloride 93 mmol/L (98-107) L 08/06/23 09:08 Carbon Dioxide 23 mmol/L (22-29) 08/06/23 09:08 Anion Gap 17.3 (5-19) 08/06/23 09:08 BUN 11 mg/dL (8-23) 08/06/23 09:08 Creatinine 0.8 mg/dL (0.5-0.9) 08/06/23 09:08 GFR Calculation Not Reportable 08/06/23 09:08 Glucose 156 mg/dL (65-115) H 08/06/23 09:08 Calculated Osmolality 271 mOsm/kg (285-295) L 08/06/23 09:08 Lactic Acid 1.6 mmol/L (0.5-2.2) 08/06/23 09:08 Calcium 9.9 mg/dL (8.5-10.5) 08/06/23 09:08 Total Bilirubin 0.7 mg/dL (0.15-1.2) 08/06/23 09:08 AST 23 U/L (0-32) 08/06/23 09:08 ALT 21 U/L (0-33) 08/06/23 09:08 Alkaline Phosphatase 61 U/L (35-105) 08/06/23 09:08 Total Protein 7.6 g/dL (6.6-8.7) 08/06/23 09:08 Albumin 4.4 g/dL (3.5-5.2) 08/06/23 09:08 Globulin 3.2 g/dL (1.3-4.6) 08/06/23 09:08 Lipase 32 U/L (13-60) 08/06/23 09:08 Urine Color Colorless (Yellow) 08/06/23 10:40 Urine Appearance Clear (CLEAR) 08/06/23 10:40 Urine pH 7 (5-7) 08/06/23 10:40 Ur Specific [place] 1.005 (1.005-1.030) 08/06/23 10:40 Urine Protein Neg (Negative) 08/06/23 10:40 Urine Glucose (UA) Norm (Normal) 08/06/23 10:40 Urine Ketones Negative (Negative) 08/06/23 10:40 Urine Blood Neg (Negative) 08/06/23 10:40 Urine Nitrate Negative (Negative) 08/06/23 10:40 Urine Bilirubin Neg (Negative) 08/06/23 10:40 Urine Urobilinogen Norm mg/dL (Negative) 08/06/23 10:40 Ur Leukocyte Esterase 1+ (Negative) H 08/06/23 10:40 Urine RBC None /hpf (0-2) 08/06/23 10:40 Urine WBC 15-25 /hpf (0-5) H 08/06/23 10:40 Ur Squamous Epith Cells Rare /hpf (0-5) 08/06/23 10:40 Amorphous Sediment Not Reportable 08/06/23 10:40 Urine Bacteria Trace /hpf (NONE) 08/06/23 10:40 Urine Mucus Trace /hpf 08/06/23 10:40 All radiology interpretation(s) finalized by discharge Discharge Plan Discharge Patient Disposition: Home Clinical Impression: Abdominal pain Condition: Stable Prescriptions: New ondansetron 4 mg tablet,disintegrating 4 mg PO Q6H PRN (Reason: nausea and vomiting) Qty: 14 0RF No Action metformin 500 mg tablet 500 mg PO BID oxycodone 5 mg tablet 5 mg PO Q4H PRN (Reason: pain) 30 Days Qty: 120 0RF alprazolam [Xanax] 0.25 mg tablet 0.25 mg PO TID PRN (Reason: anxiety) Qty: 90 5RF epinephrine [EpiPen 2-Jaret] 0.3 mg/0.3 mL auto-injector 0.3 mg IM Q10M PRN (Reason: anaphylaxis) Qty: 2 0RF Rx Instructions: for 2 doses losartan 50 mg tablet 50 mg PO QAM latanoprost 0.005 % drops 1 drp ophthalmic (eye) BEDTIME Rx Instructions: both eyes digestive enzymes Capsule 1 cap PO DAILY Rx Instructions: administer with food; swallow whole; do not crush/chew/dissolve/break/cut ascorbate calcium (vitamin C) [[place]lyse-C] 500 mg Tablet 1,000 mg PO DAILY timolol maleate 0.5 % drops 1 drp ophthalmic (eye) BID Rx Instructions: both eyes diclofenac sodium [Aspercreme Arthritis Pain] 1 % Gel 2 - 4 g TOPICAL QID PRN (Reason: Pain) [place] 3 Fish Oil 684-1,200 mg Capsule,Delayed Release(Dr/Ec) 1 cap PO DAILY meloxicam 15 mg tablet 15 mg PO QAM prednisone 5 mg tablet 5 mg PO QAM pantoprazole 40 mg tablet,delayed release (DR/EC) 40 mg PO BEDTIME Discharge Orders: Discharge ED (Routine); Ordered 08/06/23 Ordered By: Lee Ann Childs Referrals: Cheko Palacios, [Primary Care Provider] - Discharge Diet: Advance as tolerated Discharge Activity: Resume usual activity Patient Instructions: Abdominal Pain (ED) Coding Level of Care Code ED Assignment Clerk for Rene Haney
[2023-08-06 09:17] LABS: Basophils # 0.1 10^3/uL (0.0-0.1); Basophils % 0.7 %; Eosinophils # 0.1 10^3/uL (0.0-0.8); Eosinophils % 1.2 %; Hematocrit 40.9 % (36-47); Lymphocytes # 1.7 10^3/uL (0.8-4.8); Lymphocytes % 18.3 %; Mean Corpuscular Hemoglobin 29.1 pg (27-33); Mean Corpuscular Volume 88.1 fl (85-98); Mean Platelet Volume 9.5 fL (7.4-10.4); Monocytes # 0.7 10^3/uL (0.2-0.9); Monocytes % 7.5 %; Neutrophils # 6.85 10^3/uL (1.8-7.7); Neutrophils % 72.1 %; Nucleated Red Blood Cells % 0 %; Platelet Count 331 10^3/cmm (157-399); Red Blood Count 4.64 10^6/uL (3.85-5.65); Red Cell Distribution Width 12.3 % (12.1-15.1)
--- NOTE | 2023-08-06 09:30 | PC.PHAR ---
pt states she takes care of her own medications-pt states dr barone dced her lipitor last october ext shows last filled 12/12/22 90d/s lipitor 10mg daily
[2023-08-06 09:31] VITALS: BP 174/79; O2SAT 94
[2023-08-06 09:40] LABS: Alanine Aminotransferase 21 U/L (0-33); Albumin Level 4.4 g/dL (3.5-5.2); Alkaline Phosphatase 61 U/L (35-105); Anion Gap 17.3 (5-19); Aspartate Amino Transferase 23 U/L (0-32); Blood Urea Nitrogen 11 mg/dL (8-23); Calcium 9.9 mg/dL (8.5-10.5); Carbon Dioxide 23 mmol/L (22-29); Chloride 93 mmol/L (98-107); Globulin 3.2 g/dL (1.3-4.6); Glucose 156 mg/dL (65-115); Lactic Sepsis W/Reflex 1.6 mmol/L (0.5-2.2); Lipase 32 U/L (13-60); Osmolality Calculated 271 mOsm/kg (285-295); Potassium 4.3 mmol/L (3.5-5.1); Sodium 129 mmol/L (136-145); Total Bilirubin 0.7 mg/dL (0.15-1.2); Total Protein 7.6 g/dL (6.6-8.7)
[2023-08-06 09:49] VITALS: BP 174/79
[2023-08-06] MEDS: iohexol 350 mg/mL 500 mL Btl (per mL) IV (10:07)
[2023-08-06 10:11] VITALS: RESP 17; O2SAT 97
[2023-08-06] MEDS: ondansetron 2 mg/ML SDV 2 mL 4 MG IVP (10:11)
[2023-08-06] MEDS: HYDROmorphone 1 mg/mL INJ 1 mL IVP (10:11)
[2023-08-06 10:34] VITALS: BP 159/110; PULSE 84; O2SAT 96
[2023-08-06 11:06] LABS: Add Urine Microscopic? YES; Bilirubin Urine Neg (Negative); Blood Urine Neg (Negative); Glucose Urine UA Norm (Normal); Ketones Urine Negative (Negative); Leukocyte Esterase Urine 1+ (Negative); Nitrate Urine Negative (Negative); Protein Urine Neg (Negative); Specific Gravity, Urine 1.005 (1.005-1.030); Urine Appearance Clear (CLEAR); Urine Color Colorless (Yellow); Urobilinogen Urine Norm (Negative); WBC Urine 15-25 /hpf (0-5); pH Urine 7 (5-7)
[2023-08-06 11:07] LABS: Add Urine Culture? Yes; Bacteria Urine TRACE /hpf; Mucus Urine TRACE /hpf; Squamous Epithelial Cell Urine RARE /hpf (0-5)
[2023-08-06 11:17] VITALS: BP 168/95; PULSE 88; O2SAT 96
== END 2023-08-06 11:19 | disposition home or self-care (01) ==
PROVIDERS: Emergency Provider Emergency Medicine; PCP Family Medicine
DX: R10.31 Right lower quadrant pain (principal)
CPT/HCPCS: 36415; 74177; 80053; 81001; 83605; 83690; 85025; 87077; 87086; 87186; 96374; 96375; 99285; J1170; J2405; Q9967

== ENCOUNTER → 2023-08-08 10:57 | Outpatient (BNVA) | payer MEDICARE, SELFPAY | PROVIDERS: PCP Family Medicine; Visit Provider Surgery | DX: G89.29 Other chronic pain (principal); F41.9 Anxiety disorder, unspecified; K21.9 Gastro-esophageal reflux disease without esophagitis; R10.84 Generalized abdominal pain | CPT/HCPCS: 99204 ==

== ENCOUNTER 2023-08-23 10:44 | Outpatient (CLI) | payer MEDICARE, SELFPAY ==
--- NOTE | 2023-08-23 10:53 | XR_ITS ---
WS: [id number] Lumbar spine, 3 views, 08/23/2023 Clinical Data: back pain Comparison: Lumbar spine, 09/29/2022 Findings: There is osteoarthritic spurring of all the lumbar vertebral bodies with degenerative disc narrowing of all the lumbar vertebral bodies. There are no new compression fractures. There is a levoscoliosis. The transverse processes and SI joints are unremarkable. There is a small abdominal aortic aneurysm measuring 3.0 cm. Impression: 1. Chronic changes of the lumbar spine which remain the same. 2. Small abdominal aortic aneurysm measuring 3.0 cm.
--- NOTE | 2023-08-23 10:53 | XR_ITS ---
WS: [id number] Thoracic spine, AP and lateral views, 08/23/2023 Clinical Data: back pain Comparison: None. Findings: No compression fractures are seen. The disc heights are decreased throughout the lower thoracic spine . There is osteoarthritic spurring of all the thoracic vertebral bodies with a dextroscoliosis. The p aravertebral regions show no abnormalities.. Impression: 1. Osteoarthritis of the thoracic vertebral bodies with degenerative disc narrowing especially in the lower levels. 2. Dextroscoliosis.
== END 2023-08-23 10:45 | disposition home or self-care (01) ==
LOC: RAD 10:50
PROVIDERS: PCP Family Medicine; Visit Provider Surgery
DX: M47.814 Spondylosis without myelopathy or radiculopathy, thoracic region (principal); M41.84 Other forms of scoliosis, thoracic region; M51.34 Other intervertebral disc degeneration, thoracic region; M47.816 Spondylosis without myelopathy or radiculopathy, lumbar region; M51.36 Other intervertebral disc degeneration, lumbar region; I71.40 Abdominal aortic aneurysm, without rupture, unspecified
CPT/HCPCS: 72070; 72100

== ENCOUNTER 2023-09-06 07:07 | Outpatient (CLI) | payer MEDICARE, SELFPAY ==
--- NOTE | 2023-09-06 08:00 | MR_ITS ---
WS: [id number] MRI/MRCP OF THE ABDOMEN WITHOUT GADOLINIUM ENHANCEMENT TECHNIQUE: Coronal T2 Fase BH, Axial T2 Fase BH, Axial T2 FS BH, Zxial 3D Rios BH, Axial DWI BH, 2D MRCP Radial BH, 3D MRCP (Resp), and Axial 3D Dyn BH Post sequences. CLINICAL INFORMATION: abdominal pain, chronic pain COMPARISON: CT abdomen pelvis 08/06/2023 and ultrasound 08/02/2023 FINDINGS: Hydropic gallbladder. Dilated common bile duct measuring 10 mm with normal tapering distally. No vis ualized choledocholithiasis. Normal pancreatic duct. No evidence of pancreatic head mass. No hydronep hrosis in either kidney. Slightly aneurysmal upper abdominal aorta unchanged from the recent CT measu ring 2.6 x 2.9 cm. Moderate atheromatous disease. Normal GE junction. Small cyst in the LEFT hepatic lobe. Normal portal vein and splenic vein. Normal spleen. Adrenal glands are normal. Diffuse fatty in filtration of the liver. Lumbar scoliosis. Impression: 1. Fluid distended hydropic gallbladder. No gallbladder wall thickening or pericholecystic fluid. 2. Dilated common bile duct measuring 10 mm with normal tapering distally. No obstructing choledocho lithiasis. 3. Tiny LEFT hepatic cyst. 4. Diffuse fatty infiltration of the liver. 5. Slightly aneurysmal distal abdominal aorta unchanged from the recent CT. 6. No other acute findings.
== END 2023-09-06 07:08 | disposition home or self-care (01) ==
LOC: RAD 07:07
PROVIDERS: PCP Family Medicine; Visit Provider Surgery
DX: K82.8 Other specified diseases of gallbladder (principal); R10.9 Unspecified abdominal pain; G89.29 Other chronic pain; K76.89 Other specified diseases of liver; K76.0 Fatty (change of) liver, not elsewhere classified
CPT/HCPCS: 74181

== ENCOUNTER → 2023-09-07 13:07 | Outpatient (BNVA) | payer MEDICARE, SELFPAY | PROVIDERS: PCP Family Medicine; Visit Provider Surgery | DX: Z09 Encounter for follow-up examination after completed treatment for conditions other than malignant neoplasm (principal) | CPT/HCPCS: 99214 ==

== ENCOUNTER → 2023-10-10 11:55 | Outpatient (BNVA) | payer MEDICARE, SELFPAY | PROVIDERS: PCP Family Medicine; Visit Provider Family Medicine | DX: Z13.6 Encounter for screening for cardiovascular disorders (principal); R73.9 Hyperglycemia, unspecified; F41.9 Anxiety disorder, unspecified; K21.9 Gastro-esophageal reflux disease without esophagitis; M19.90 Unspecified osteoarthritis, unspecified site; G89.29 Other chronic pain | CPT/HCPCS: 80053; 80061; 83036; 85025 ==

== ENCOUNTER → 2024-04-19 11:17 | Outpatient (BNVA) | payer MEDICARE, SELFPAY | PROVIDERS: PCP Family Medicine; Visit Provider Surgery | DX: K80.50 Calculus of bile duct without cholangitis or cholecystitis without obstruction (principal) | CPT/HCPCS: 99214 ==

== ENCOUNTER 2024-05-13 05:30 | Day surgery (SDC) | payer MEDICARE, SELFPAY ==
[2024-05-13] VITALS (8 sets, daily range): BP systolic 122–171; BP diastolic 72–83; PULSE 69–95; RESP 12–19; TEMP 36.2–37.1; O2SAT 98–100; BMI 23.2
--- NOTE | 2024-05-13 05:39 | P.HPUD_ITS ---
Surgery/Procedure H&P Update DATE OF PROCEDURE: May 13, 2024 DATE H&P PERFORMED: 11/08/22 H&P UPDATE INFORMATION: I have reviewed H&P completed within last 30 days, I have examined patient prior to procedure, No changes to prior documentation and H&P is in [facility] EMR on date indicated PLANNED PROCEDURE: Operation Date: 05/13/24 07:00 Proposed Procedures p Laparoscopic Ch[place]cyst[place] [address]13, K80.50, K 81.9(Not Applicable) - Bala Talamantes MD
--- NOTE | 2024-05-13 06:23 | ECG_ITS ---
[facility] Test Date: 2024-05-13 Pat Name: Cheyenne Hall Department: Room: Gender: Female Thickener Operator: : 1940 Requested By: Kylie Kelsey Order Number: [id number] Napier MD: Brian Argueta M.D. Measurements Intervals Alexis Rate: 80 P: 75 HI: 124 QRS: 64 QRSD: 86 T: 39 QT: 349 QTc: 403 Interpretive Statements SINUS RHYTHM WITH SINUS ARRHYTHMIA Compared to ECG 08/02/2023 12:22:59 Left ventricular hypertrophy no longer present ST (T wave) deviation no longer present Electronically Signed On 05-14-2024 16:57:33 CDT by Brian Argueta M.D. [id number]
[2024-05-13] MEDS: ceFAZolin 2,000 mg SDV 2000 MG IVP (06:57)
--- NOTE | 2024-05-13 07:03 | P.ANESASSM_ITS ---
Pre-Anesthetic Assessment Height/Weight: Height 1.55 m Weight 55.792 kg Temp Pulse Resp BP Pulse Ox O2 Del Method 97.4 F L 95 18 155/83 99 Room Air 05/13/24 06:33 05/13/24 06:33 05/13/24 06:33 05/13/24 06:33 05/13/24 06:33 05/13/24 06:33 Operation Date: 05/13/24 07:00 Proposed Procedures p Laparoscopic Cholecystectomy possible open 19809, K80.50, K 81.9(Not Applicable) - Bala Talamantes MD Familial anesthetic complications: None Was Beta Justa taken within 24 hours: N/A Was Clonidine taken within 24 hours: N/A Last intake: Intake Last Liquid Date 05/12/24 Last Liquid Time 21:00 Last Solid Date 05/12/24 Last Solid Time 20:00 Social No alcohol and No tobacco Exam alert, oriented x 3, clear to auscultation bilaterally and regular rate & rhythm Airway Mallampati: Class I Dentition: false CV/HEM Hypertension GI Gastroesophageal Reflux Disease Metabolic Diabetes Mellitus Anesthetic Plan ASA status: 3 Anesthesia: General Risk of > 500 ml blood loss (7ml/kg in children): No Medications/Allergies Home Medications Medication Instructions Recorded Confirmed Last Taken Type epinephrine 0.3 mg/0.3 mL 0.3 mg (0.3 mL) IM Q10M PRN 11/17/22 05/10/24 Unknown Rx injection, auto-injector (EpiPen anaphylaxis #2 ea 2-Jaret) ascorbate calcium (vitamin C) 500 1,000 mg PO DAILY 08/02/23 05/10/24 05/10/24 History mg tablet diclofenac sodium 1 % topical gel 2 - 4 g topical QID PRN Pain 08/02/23 05/10/24 Unknown History (Aspercreme Arthritis Pain) latanoprost 0.005 % eye drops 1 drp ophthalmic (eye) BEDTIME 08/02/23 05/10/24 08/05/23 History pantoprazole 40 mg tablet,delayed 40 mg PO BEDTIME for stomach 08/02/23 05/10/24 05/09/24 History release timolol maleate 0.5 % eye drops 1 drp ophthalmic (eye) BID 08/02/23 05/10/24 08/05/23 History losartan 50 mg tablet 50 mg PO QAM bp #90 tabs 10/02/23 05/10/24 05/10/24 Rx metformin 500 mg tablet 500 mg PO BID sugars #180 tabs 10/02/23 05/10/24 05/10/24 Rx meloxicam 15 mg tablet See Rx Instructions .Route 02/19/24 05/10/24 05/10/24 Rx .COMPLEX #90 tabs prednisone 5 mg tablet 5 mg PO QAM arthritis #90 tabs 04/09/24 05/10/24 05/10/24 Rx alprazolam 0.25 mg tablet (Xanax) 0.25 mg PO TID PRN anxiety #90 tabs 04/12/24 05/10/24 05/10/24 Rx miconazole nitrate 2 % topical 1 applic topical BID fungal skin 05/07/24 05/10/24 Unknown Rx cream infection #30 grams morphine 15 mg immediate release 7.5 - 15 mg (0.5 - 1 x 15 mg) PO 05/07/24 05/10/24 05/10/24 Rx tablet Q8H PRN breakthrough pain, severe 30 days #45 tabs morphine 15 mg tablet,extended 22.5 mg (1.5 x 15 mg) PO Q12H 05/07/24 05/10/24 05/10/24 Rx release severe pain 30 days #90 tabs ondansetron HCl 4 mg tablet 4 mg PO Q8H PRN nausea and 05/07/24 05/10/24 Unknown Rx vomiting #30 tabs Allergies Allergy/AdvReac Type Severity Reaction Status Date / Time hydrocodone Allergy ALGY-Anaphy Verified 05/07/24 09:35 laxis Sulfa (Sulfonamide Allergy ALGY-Hives Verified 05/07/24 09:35 Antibiotics) [facility] Anesthesia Medical History Lumbar stenosis with neurogenic claudication GERD (gastroesophageal reflux disease) Surgical History History of back surgery Family History Mother Diabetes Lung cancer Social History Smoking and tobacco/nicotine status: never used tobacco/nicotine Quit status (tobacco/nicotine): not considering quitting Second hand smoke exposure: No Alcohol intake: never Substance/Drug Use: never Data Anesthesia Cardiac Studies: No Data to Display
[2024-05-13 07:43] LABS: Glucose Point of Care 109 mg/dL (70-110)
[2024-05-13] MEDS: sodium chloride 0.9% 1,000 ML 30 ML IV (07:44)
[2024-05-13] MEDS: BUPivacaine 0.25% INJ 10 mL INJECTION (08:40)
[2024-05-13] MEDS: lidocaine-epi 1% 20 mL INJ INJECTION (08:40)
--- NOTE | 2024-05-13 08:57 | PM.OP ---
Operative Report Date of procedure: May 13, 2024 Pre-op diagnosis: Symptomatic cholelithiasis Post-op diagnosis: Same, intra-abdominal adhesions Post-op findings: There were severe additions between the omentum and the anterior abdominal wall and the pericolonic fat of the transverse colon and anterior abdominal wall. Extensive lysis of addition was required in order to be able to visualize the gallbladder. Gallbladder was distended, otherwise normal anatomy Procedure done: Laparoscopic lysis of additions, laparoscopic cholecystectomy Specimens removed/disposition: Gallblader Surgeon: Bala Talamantes MD Director Global Strategic Publisher Sales: GERTRUDE [employer] STaff Estimated blood loss: 10 Brief History: 83-year-old female with chronic abdominal pain who presented to my clinic for evaluation for possible gallstone disease. After evaluation we decided to proceed with laparoscopic possible open cholecystectomy. Procedure: Patient was brought into the OR, she was placed in a supine position. General anesthesia was given. The abdomen was prepped and draped in the usual sterile fashion. The abdomen was accessed via infraumbilical incision with an open technique, access on trocar was placed and fixed to the fascia with #0 Vicryl. Initial pneumoperitoneum was achieved and no evidence of visceral injury during entry was noted. Immediately upon entry severe adhesions of the omentum to the anterior abdominal wall and the pericolonic fat of the transverse colon to the anterior abdominal wall were noted. Proved by millimeter trocars were placed in the right lower quadrant and left lower quadrant under direct visualization. The lesions were carefully taken down with sharp dissection and occasional blunt dissection, no electrocautery was used to prevent injury of the bowel. Around 60 minutes were used for lysis of additions. Once all the adhesions were taken out the gallbladder was visualized, it was noted to be distended. Additional 5 mm trocars were placed 1 in the epigastrium 1 on the right upper quadrant 1 in the right flank all under direct visualization. Gallbladder was grasped from the fundus and retracted cephalad, I then used a grasper to retract the infundibulum in the inferolateral direction, I proceeded to open the peritoneum anterior to the hepatocystic triangle with electrocautery I carried this opening in the medial lateral direction to the edges of the liver and then on the sides of the gallbladder to improve exposure. With careful blunt dissection and electrocautery I was able to encircle the cystic duct and artery and to elevate the lower third of the gallbladder thus creating a critical view of safety. Cystic duct and artery were clipped and transected able to clips in the cystic artery proximal to the area of transection and 3 clips on the cystic duct proximal to the area of transection. The gallbladder was then removed from the liver bed using electrocautery. After the gallbladder was completely removed I decided to decompress the gallbladder as it was very distended, this was to prevent the need of increasing the size of the abdominal incision to retrieve the specimen, I used endoscopic needle and decompress the gallbladder obtain 60cc of bile. The gallbladder was then retrieved via the umbilical trocar site in an Endo Catch bag. I then proceeded to evaluate the liver bed and the clips, no evidence of bleeding or bile leak were noted, the area was irrigated and no active bleeding or evidence of bile was noted. I then proceeded to closed umbilical trocar site under direct visualization using a Matt-Mirta suture passer with a 0 Vicryl. The lower abdomen trocars were removed under direct visualization the epigastrium and right upper quadrant trocars were removed under direct visualization the right flank trocar was used to evacuate the pneumoperitoneum and subsequently removed. The wounds were closed in layers using #4 oh for the subcuticular layer. Dermabond was applied. Local anesthesia was applied before the closure of the wounds. At the end of the procedure all counts were correct, the patient tolerated well the procedure and was transferred to the PACU in stable condition.
--- NOTE | 2024-05-13 10:40 | ANE.PACU2 ---
Inpatient post-anesthesia follow up: Airway intact: Yes Vital signs: Temperature 97.2 F Pulse Rate 69 Respiratory Rate 18 Blood Pressure 132/77 Pulse Oximetry 99 Oxygen Delivery Me thod Room Air Oxygen Flow Rate 6 Fraction of Inspir ed Oxygen Hydration adequate: Yes Nausea and vomiting: No Pain level: 1 Mental status: Baseline
== END 2024-05-13 10:40 | disposition home or self-care (01) ==
PROVIDERS: PCP Family Medicine; Visit Provider Surgery
PROC: 0FT44ZZ Resection of Gallbladder, Percutaneous Endoscopic Approach (ICD-10-PCS; CPT 47562; principal; 2024-05-13 07:00)
DX: K80.10 Calculus of gallbladder with chronic cholecystitis without obstruction (principal); K66.0 Peritoneal adhesions (postprocedural) (postinfection); I10 Essential (primary) hypertension; E11.9 Type 2 diabetes mellitus without complications; K21.9 Gastro-esophageal reflux disease without esophagitis
CPT/HCPCS: 47562; 36416; 82962; 88304; 93005; J0131; J0690; J1100; J1720; J2371; J2405; J2704; J2710; J3010; J3490; J7030

== ENCOUNTER → 2024-05-29 09:44 | Outpatient (BNVA) | payer MEDICARE, SELFPAY | PROVIDERS: PCP Family Medicine; Visit Provider Surgery | DX: Z98.890 Other specified postprocedural states (principal); Z90.49 Acquired absence of other specified parts of digestive tract | CPT/HCPCS: 99024 ==

== ENCOUNTER 2024-08-01 19:23 | Emergency (ER) | payer MEDICARE, SELFPAY ==
[2024-08-01 19:43] VITALS: BP 169/89; PULSE 103; RESP 20; TEMP 36.6; O2SAT 99
[2024-08-01 19:47] VITALS: BP 130/79; PULSE 78; RESP 16; O2SAT 97
--- NOTE | 2024-08-01 20:46 | CTR_ITS ---
PROCEDURE INFORMATION: Exam: CT Abdomen And Pelvis With Contrast Exam date and time: 08/01/2024 9:36 PM Age: 84 years old Clinical indication: Abdominal pain; Prior surgery; Surgery date: 1-6 months; Surgery type: Gallbladder/colon TECHNIQUE: Imaging protocol: Computed tomography of the abdomen and pelvis with contrast. Radiation optimization: All CT scans at this facility use at least one of these dose optimization techniques: automated exposure control; mA and/or kV adjustment per patient size (includes targeted exams where dose is matched to clinical indication); or iterative reconstruction. Contrast material: OMNI 350; Contrast volume: 100 ml; Contrast route: INTRAVENOUS (IV); COMPARISON: MR MRCP [id number] 09/06/2023 8:42 AM RADIATION DOSE METRICS: Total DLP (mGy-cm): 326.2 FINDINGS: Liver: Unremarkable. Gallbladder and biliary ducts: Cholecystectomy. Intra and extrahepatic biliary ductal dilation with the CBD measuring up to 13 mm. No radiopaque obstructing stones or constricting lesions are noted. Pancreas: Unremarkable. Spleen: Splenic granulomas. Adrenal glands: Unremarkable. Kidneys and ureters: Hypodense cortical lesions throughout kidneys too small to characterize likely representing simple cysts. Stomach and bowel: Unremarkable. No mechanical obstruction. No mucosal thickening. Appendix: Unremarkable. Intraperitoneal space: No free air or free fluid. Vasculature: Severe atherosclerotic changes of the aorta and its major branches. Infrarenal abdominal aortic aneurysm measuring up to 2.9 cm AP. Lymph nodes: Unremarkable. No enlarged lymph nodes. Urinary bladder: Unremarkable. Reproductive: Unremarkable. Bones/joints: Grade 1 retrolisthesis of L4 on L5 and L5 on S1. Lumbar levoscoliosis. Moderate multilevel spondylosis. Severe degenerative changes of the right hip. Soft tissues: Unremarkable. CT/CT abdomen pelvis w con* [id number] IMPRESSION: 1. No acute abdominopelvic abnormality. 2. Nonspecific intra- and extrahepatic biliary ductal dilation with the CBD measuring up to 13 mm may be secondary to postsurgical changes. No radiopaque obstructing stones or constricting lesions are noted. Consider MRCP for further evaluation. COMMENTS: Consistent with the [place] [employer]'s Incidental Findings Committee white paper (J Am Peg Radiol 2018): Any incidental renal lesion less than 1 cm or classified as too small to characterize, or any incidental cystic renal lesion characterized as simple-appearing, is likely benign. No follow-up imaging is recommended for these lesions per consensus recommendations based on imaging criteria.
[2024-08-01 20:47] VITALS: BP 188/95; PULSE 87; O2SAT 98
--- NOTE | 2024-08-01 20:47 | W.ED.ABDPA2 ---
HPI - Abdominal Pain General: Chief Complaint: Abdominal Pain Stated Complaint: abd pain Time Seen by Provider: 08/01/24 20:34 Source: patient Mode of arrival: ambulatory Limitations: no limitations History of Present Illness: Patient is a nice 84-year-old female presents to ED today along with family for evaluation of abdominal pain. Patient states she underwent cholecystectomy back in April and has had problems since . Looking at previous documentation, she is followed up with her surgeon Dr. Talamantes as well as primary care twice with complaints of bloating, gas, abdominal cramping. Most of this was felt to be normal following cholecystectomy. She also did undergo extensive lysis of adhesions at that time as well. Patient states she is here today because over the past several days she has been having severe pain to her umbilical region. She states pain wakes her up at night. She does complain of some acid reflux and has taken some [id number] medication with relief. She has not had any vomiting. She also wonders if this could be secondary to constipation as she is on morphine daily. No fevers. MD elicited complaint: abdominal pain Onset (ago): day(s) Pain Consistency: intermittent Location: Periumbilical Severity: severe Radiation: none Migration to: no migration Exacerbating factors: nothing Relieving factors: nothing Associated Symptoms: Reports bloating and nausea; Denies chills, diarrhea, dysuria, fever(s) and vomiting Related Data Home Medications Medication Instructions Recorded Confirmed ascorbate calcium (vitamin C) 500 1,000 mg PO DAILY 08/02/23 05/29/24 mg tablet diclofenac sodium 1 % topical gel 2 - 4 g topical QID PRN Pain 08/02/23 05/29/24 (Aspercreme Arthritis Pain) latanoprost 0.005 % eye drops 1 drp ophthalmic (eye) BEDTIME 08/02/23 05/29/24 pantoprazole 40 mg tablet,delayed 40 mg PO BEDTIME for stomach 08/02/23 06/04/24 release timolol maleate 0.5 % eye drops 1 drp ophthalmic (eye) BID 08/02/23 05/29/24 Previous Rx's Medication Instructions Recorded epinephrine 0.3 mg/0.3 mL 0.3 mg (0.3 mL) IM Q10M PRN 11/17/22 injection, auto-injector (EpiPen anaphylaxis #2 ea 2-Jaret) losartan 50 mg tablet 50 mg PO QAM bp #90 tabs 10/02/23 metformin 500 mg tablet 500 mg PO BID sugars #180 tabs 10/02/23 alprazolam 0.25 mg tablet (Xanax) 0.25 mg PO TID PRN anxiety #90 tabs 04/12/24 miconazole nitrate 2 % topical 1 applic topical BID fungal skin 05/07/24 cream infection #30 grams ondansetron HCl 4 mg tablet 4 mg PO Q8H PRN nausea and 05/07/24 vomiting #30 tabs meloxicam 15 mg tablet 15 mg PO DAILY #7 tabs 05/13/24 morphine 15 mg immediate release 7.5 - 15 mg (0.5 - 1 x 15 mg) PO 07/09/24 tablet Q8H PRN breakthrough pain, severe 30 days #45 tabs prednisone 5 mg tablet 5 mg PO QAM arthritis #90 tabs 07/09/24 morphine 30 mg capsule,extended 30 mg PO DAILY chronic pain 1 07/22/24 release 24 hr multiphase month #30 caps Allergies Allergy/AdvReac Type Severity Reaction Status Date / Time hydrocodone Allergy ALGY-Anaphy Verified 07/09/24 11:50 laxis Sulfa (Sulfonamide Allergy ALGY-Hives Verified 07/09/24 11:50 Antibiotics) Review of Systems Const: Denies: fever(s), chills, body aches, fatigue or malaise Card: Denies: chest pain Resp: Denies: dyspnea GI: Reports: abdominal pain, nausea and bloating; Denies: vomiting or diarrhea : Denies: flank pain, difficulty voiding, dysuria, urinary frequency, urinary urgency or urinary hesitancy Musc: Denies: neck pain, back pain, extremity pain, extremity swelling, joint pain or joint swelling Skin/Breast: Denies: rash Neuro: Denies: headache(s), numbness in extremities, weakness in extremities, sensory changes or dizziness PFSH ED PFSH: Medical History Lumbar stenosis with neurogenic claudication GERD (gastroesophageal reflux disease) Surgical History History of back surgery Family History Mother Diabetes Lung cancer Social History Smoking and tobacco/nicotine status: never used tobacco/nicotine Quit status (tobacco/nicotine): not considering quitting Second hand smoke exposure: No Alcohol intake: never Substance/Drug Use: never Physical Exam Const: COMMON NORMALS: no acute distress, average body habitus, patient oriented x3, no limitations, healthy appearing, alert and well nourished GENERAL APPEARANCE: cooperative ORIENTATION/CONSCIOUSNESS: Yes awake, Yes oriented to person, Yes oriented to place and Yes oriented to time Eye: COMMON NORMALS: no scleral icterus Chest: COMMONS NORMALS: normal inspection of the chest and normal palpation of entire chest wall Resp: COMMON NORMALS: normal respiratory effort and clear to auscultation bilaterally AUSCULTATION: clear to auscultation bilaterally Cardio: COMMON NORMALS: regular rate and regular rhythm RATE: regular rate RHYTHM: regular rhythm GI: COMMON NORMALS: Normal to inspection, nondistended, normoactive bowel sounds present, No hepatosplenomegaly present, no masses and no bruits INSPECTION: Yes normal to inspection AUSCULTATION: Yes normoactive bowel sounds PALPATION: Yes Tenderness to palpation present (GI) (epigastric/periumbilical-possible small incisional hernia here), No Guarding due to palpation present (GI), No Rigid due to palpation and Yes No hepatosplenomegaly present : COMMON NORMALS: Yes no CVA tenderness BLADDER/KIDNEY EXAM: Yes no CVA tenderness Back/Pelvis: COMMON NORMALS: no CVA tenderness Extremity: GENERAL: Yes normal exam except as noted Neuro: COMMON NORMALS: patient oriented x3, moves all extremities, no focal motor deficits and no sensory deficits noted SENSORIUM/ORIENTATION: Yes alert, Yes oriented to person, Yes oriented to place and Yes oriented to time Skin: COMMON NORMALS: no rashes or lesions noted GENERAL SKIN EXAM: no rashes or lesions noted Course Vital Signs: Vital signs: Vital Signs Temperature 97.9 F 08/01/24 19:43 Pulse Rate 89 08/01/24 21:47 Respiratory Rate 16 08/01/24 19:47 Blood Pressure 175/89 08/01/24 21:47 Pulse Oximetry 96 08/01/24 21:47 MDM - Abdominal Pain Medical Decision Making Patient's blood work overall is unremarkable. Her UA is clear. CT scan showing no acute abdominal pelvic abnormality. Commented on nonspecific biliary ductal dilatation could be secondary to postsurgical changes. There was no radiopaque obstructing stones or constricting lesions. Her LFTs are completely normal. At this time findings do not warrant MRCP. She was given GI cocktail here which helped with her pain. Patient states she does have a PPI at home that she can start taking twice a day. States she will follow-up with her primary care provider Dr. Palacios. Return to ED precautions given. Medical Records I reviewed the patient's medical records. Lab Data I reviewed the patient's lab results. 08/01/24 20:50 08/01/24 20:50 Labs/Radiology: Radiology Impressions Abdomen/Pelvis CT 08/01/24 20:46 IMPRESSION: 1. No acute abdominopelvic abnormality. 2. Nonspecific intra- and extrahepatic biliary ductal dilation with the CBD measuring up to 13 mm may be secondary to postsurgical changes. No radiopaque obstructing stones or constricting lesions are noted. Consider MRCP for further evaluation. COMMENTS: Consistent with the [place] [employer]'s Incidental Findings Committee white paper (J Am Peg Radiol 2018): Any incidental renal lesion less than 1 cm or classified as too small to characterize, or any incidental cystic renal lesion characterized as simple-appearing, is likely benign. No follow-up imaging is recommended for these lesions per consensus recommendations based on imaging criteria. Laboratory Results WBC 11.52 10^3/uL (3.29-11.43) H 08/01/24 20:50 RBC 4.57 10^6/uL (3.85-5.65) 08/01/24 20:50 Hgb 12.90 g/dL (11.27-16.99) 08/01/24 20:50 Hct 39.5 % (36-47) 08/01/24 20:50 MCV 86.4 fl (85-98) 08/01/24 20:50 MCH 28.2 pg (27-33) 08/01/24 20:50 MCHC 32.7 g/dL (30-55) 08/01/24 20:50 RDW 12.9 % (12.1-15.1) 08/01/24 20:50 Plt Count 307 10^3/cmm (157-399) 08/01/24 20:50 MPV 9.3 fL (7.4-10.4) 08/01/24 20:50 Neut % (Auto) 72.6 % 08/01/24 20:50 Lymph % (Auto) 18.1 % 08/01/24 20:50 Dawes % (Auto) 7.6 % 08/01/24 20:50 Eos % (Auto) 0.9 % 08/01/24 20:50 Baso % (Auto) 0.5 % 08/01/24 20:50 Neut # (Auto) 8.37 10^3/uL (1.8-7.7) H 08/01/24 20:50 Lymph # (Auto) 2.1 10^3/uL (0.8-4.8) 08/01/24 20:50 Dawes # (Auto) 0.9 10^3/uL (0.2-0.9) 08/01/24 20:50 Eos # (Auto) 0.1 10^3/uL (0.0-0.8) 08/01/24 20:50 Baso # (Auto) 0.1 10^3/uL (0.0-0.1) 08/01/24 20:50 Nucleated RBC % (auto) 0 % 08/01/24 20:50 Nucleated RBCs # 0.0 /100WBC 08/01/24 20:50 Sodium 131 mmol/L (136-145) L 08/01/24 20:50 Potassium 4.0 mmol/L (3.5-5.1) 08/01/24 20:50 Chloride 93 mmol/L (98-107) L 08/01/24 20:50 Carbon Dioxide 26 mmol/L (22-29) 08/01/24 20:50 Anion Gap 16.0 (5-19) 08/01/24 20:50 BUN 19 mg/dL (8-23) 08/01/24 20:50 Creatinine 0.6 mg/dL (0.5-0.9) 08/01/24 20:50 GFR Calculation Not Reportable 08/01/24 20:50 Glucose 106 mg/dL (65-115) 08/01/24 20:50 Calculated Osmolality 275 mOsm/kg (285-295) L 08/01/24 20:50 Calcium 10.3 mg/dL (8.5-10.5) 08/01/24 20:50 Total Bilirubin 0.5 mg/dL (0.15-1.2) 08/01/24 20:50 AST 27 U/L (0-32) 08/01/24 20:50 ALT 26 U/L (0-33) 08/01/24 20:50 Alkaline Phosphatase 86 U/L (35-105) 08/01/24 20:50 Total Protein 7.4 g/dL (6.6-8.7) 08/01/24 20:50 Albumin 4.5 g/dL (3.5-5.2) 08/01/24 20:50 Globulin 2.9 g/dL (1.3-4.6) 08/01/24 20:50 Lipase 25 U/L (13-60) 08/01/24 20:50 Urine Color Yellow (Yellow) 08/01/24 21:06 Urine Appearance Clear (CLEAR) 08/01/24 21:06 Urine pH 5.0 (5-7) 08/01/24 21:06 Ur Specific [place] 1.026 (1.005-1.030) 08/01/24 21:06 Urine Protein Trace (Negative) A 08/01/24 21:06 Urine Glucose (UA) Negative (Normal) 08/01/24 21:06 Urine Ketones 1+ (Negative) H 08/01/24 21:06 Urine Blood Negative (Negative) 08/01/24 21:06 Urine Nitrate Negative (Negative) 08/01/24 21:06 Urine Bilirubin Negative (Negative) 08/01/24 21:06 Urine Urobilinogen 1.0 mg/dL (Negative) 08/01/24 21:06 Ur Leukocyte Esterase Negative (Negative) 08/01/24 21:06 Urine RBC 0-2 /hpf (0-2) 08/01/24 21:06 Urine WBC 0-5 /hpf (0-5) 08/01/24 21:06 Ur Squamous Epith Cells 0-5 /hpf (0-5) 08/01/24 21:06 Amorphous Sediment Not Reportable 08/01/24 21:06 Urine Bacteria None seen /hpf (NONE) 08/01/24 21:06 Hyaline Casts 2.46 /lpf 08/01/24 21:06 All radiology interpretation(s) finalized by discharge Discharge Plan Discharge Patient Disposition: Home Clinical Impression: Abdominal pain Qualifiers: Abdominal location: periumbilical Qualified Code(s): R10.33 - Periumbilical pain Condition: Stable Prescriptions: No Action morphine 15 mg tablet 7.5 - 15 mg PO Q8H PRN (Reason: breakthrough pain, severe) 30 Days Qty: 45 0RF prednisone 5 mg tablet 5 mg PO QAM Qty: 90 1RF ondansetron HCl 4 mg tablet 4 mg PO Q8H PRN (Reason: nausea and vomiting) Qty: 30 3RF miconazole nitrate 2 % cream 1 applic topical BID Qty: 30 1RF losartan 50 mg tablet 50 mg PO QAM Qty: 90 3RF metformin 500 mg tablet 500 mg PO BID Qty: 180 3RF alprazolam [Xanax] 0.25 mg tablet 0.25 mg PO TID PRN (Reason: anxiety) Qty: 90 5RF morphine 30 mg capsule, ER multiphase 24 hr 30 mg PO DAILY 30 Days Qty: 30 0RF meloxicam 15 mg tablet 15 mg PO DAILY Qty: 7 0RF epinephrine [EpiPen 2-Jaret] 0.3 mg/0.3 mL auto-injector 0.3 mg IM Q10M PRN (Reason: anaphylaxis) Qty: 2 0RF Rx Instructions: for 2 doses latanoprost 0.005 % drops 1 drp ophthalmic (eye) BEDTIME Rx Instructions: both eyes ascorbate calcium (vitamin C) 500 mg Tablet 1,000 mg PO DAILY timolol maleate 0.5 % drops 1 drp ophthalmic (eye) BID Rx Instructions: both eyes diclofenac sodium [Aspercreme Arthritis Pain] 1 % Gel 2 - 4 g TOPICAL QID PRN (Reason: Pain) pantoprazole 40 mg tablet,delayed release (DR/EC) 40 mg PO BEDTIME Discharge Orders: Discharge ED (Routine); Ordered 08/01/24 Ordered By: Kiera Bernabe Referrals: Cheko Palacios DO [Primary Care Provider] - Patient Instructions: Abdominal Pain (ED) Coding Level of Care Code ED Blindstitch [place] for Rene Haney
[2024-08-01] MEDS: lidocaine 2% viscous 15 ML, aluminum-mag hydrox-simethicon 30 ML, sucralfate oral liq 1 GM PO (20:56)
[2024-08-01 21:00] LABS: Basophils # 0.1 10^3/uL (0.0-0.1); Basophils % 0.5 %; Eosinophils # 0.1 10^3/uL (0.0-0.8); Eosinophils % 0.9 %; Hematocrit 39.5 % (36-47); Lymphocytes # 2.1 10^3/uL (0.8-4.8); Lymphocytes % 18.1 %; Mean Corpuscular HGB Conc 32.7 g/dL (30-55); Mean Corpuscular Hemoglobin 28.2 pg (27-33); Mean Corpuscular Volume 86.4 fl (85-98); Mean Platelet Volume 9.3 fL (7.4-10.4); Monocytes # 0.9 10^3/uL (0.2-0.9); Monocytes % 7.6 %; Neutrophils # 8.37 10^3/uL (1.8-7.7); Neutrophils % 72.6 %; Nucleated Red Blood Cells % 0 %; Platelet Count 307 10^3/cmm (157-399); Red Blood Count 4.57 10^6/uL (3.85-5.65); Red Cell Distribution Width 12.9 % (12.1-15.1); White Blood Count 11.52 10^3/uL (3.29-11.43)
[2024-08-01 21:16] LABS: Bilirubin Urine Negative (Negative); Blood Urine Negative (Negative); Glucose Urine UA Negative (Normal); Ketones Urine 1+ (Negative); Leukocyte Esterase Urine Negative (Negative); Nitrate Urine Negative (Negative); Protein Urine Trace (Negative); Specific Gravity, Urine 1.026 (1.005-1.030); Urine Appearance Clear (CLEAR); Urine Color Yellow (Yellow)
[2024-08-01 21:21] LABS: Add Urine Microscopic? YES; Bacteria Urine None Seen /hpf; Hyaline Casts Urine 2.46 /lpf; RBC Urine 0-2 /hpf (0-2); Squamous Epithelial Cell Urine 0-5 /hpf (0-5); WBC Urine 0-5 /hpf (0-5)
[2024-08-01 21:22] LABS: Alanine Aminotransferase 26 U/L (0-33); Albumin Level 4.5 g/dL (3.5-5.2); Alkaline Phosphatase 86 U/L (35-105); Aspartate Amino Transferase 27 U/L (0-32); Blood Urea Nitrogen 19 mg/dL (8-23); Calcium 10.3 mg/dL (8.5-10.5); Carbon Dioxide 26 mmol/L (22-29); Chloride 93 mmol/L (98-107); Creatinine Clr Calc Pharmacy 39.3369; Globulin 2.9 g/dL (1.3-4.6); Glucose 106 mg/dL (65-115); Lipase 25 U/L (13-60); Osmolality Calculated 275 mOsm/kg (285-295); Sodium 131 mmol/L (136-145); Total Bilirubin 0.5 mg/dL (0.15-1.2); Total Protein 7.4 g/dL (6.6-8.7)
[2024-08-01] MEDS: iohexol 350 mg/mL 500 mL Btl (per mL) IV (21:42)
[2024-08-01 21:47] VITALS: BP 175/89; PULSE 89; O2SAT 96
[2024-08-01 22:00] VITALS: BP 162/85; PULSE 90; O2SAT 97
[2024-08-02 00:30] VITALS: PULSE 79; O2SAT 98
[2024-08-02 00:33] VITALS: BP 162/85; PULSE 79; O2SAT 95
== END 2024-08-02 00:35 | disposition home or self-care (01) ==
PROVIDERS: Emergency Medicine; Emergency Provider Physician Assistant; PCP Family Medicine
DX: R10.33 Periumbilical pain (principal)
CPT/HCPCS: 36415; 74177; 80053; 81001; 83690; 85025; 99285

== ENCOUNTER → 2024-09-30 13:34 | Outpatient (BNVA) | payer MEDICARE, SELFPAY | PROVIDERS: PCP Family Medicine; Visit Provider Family Medicine | DX: F41.9 Anxiety disorder, unspecified (principal); R63.4 Abnormal weight loss; K21.9 Gastro-esophageal reflux disease without esophagitis; M19.90 Unspecified osteoarthritis, unspecified site; M71.9 Bursopathy, unspecified; M48.062 Spinal stenosis, lumbar region with neurogenic claudication; G89.29 Other chronic pain; E03.9 Hypothyroidism, unspecified | CPT/HCPCS: 80053; 80061; 82607; 84443; 85025; 86003; 86008 ==

== ENCOUNTER 2025-07-26 18:50 | Emergency (ER) | payer MEDICARE, SELFPAY ==
--- OUTSIDE RECORDS SUMMARY | 2024-06-15 03:00 | XMS_ITS ---
Author Organization [facility] Address [address] [place] [address] Support Name Relationship Address , Niki Rodgers Emergency Contact Unknown Unavailable Cheyenne Hall Guarantor Unknown Unavailable Care Team Providers Care Sales Representative Consultant Name Role Phone Ralph Merino Primary Care Provider Unavailabl e Migration, Provider Unavailable Unavailable REASON FOR VISIT EMR-Hira Encounters Encounter Location Date Provider Diagnosis Migrated_Facility 0 0 06/15/2024 Provider Migration Plan Of Treatment No Information Progress Notes * RAFAELAustenha PDOB:[birth year] (85 yo F)Acc No.[id number]:06/15/2024 Patient: Cheyenne JOHN Jalen :1940 A ge:83 Y S ex:Female Phone: Address:[facility] [address] [facility], [place], [address] Subjective: * Chief Complaints: * E MR-Hira * * Date:
--- OUTSIDE RECORDS SUMMARY | 2024-06-16 03:00 | XMS_ITS ---
Author Organization [facility] Address [address] [place] [address] Support Name Relationship Address , Niki Rodgers Emergency Contact Unknown Unavailable Cheyenne Zuleta Guarantor Unknown Unavailable Care Team Providers Care Behavioral Health Assistant Name Role Phone Lupisaly Ralph Primary Care Provider Unavailabl e Migration, Provider Unavailable Unavailable Allergies Allergen (clinical drug ingredient) Drug/Non Drug Allergy documented on EMR Reaction Allergy Type Onset Date Status GLUCOSAMINE AND DERIVATIVES (uncoded) Unknown Allergy Active Substance with sulfonamide structure and antibacterial mechanism of action (substance) SULFA (SULFONAMIDE ANTIBIOTICS) (uncoded) Unknown Allergy Active Darvocet A500 Unknown Drug Allergy Act ciro REASON FOR VISIT EMR-Hira Medications Medication SIG (Take, Route, Frequency, Duration) Notes Start Date End Date Status Meloxicam *Pick strength-f orm from Medispan for eRX* Active Encounters Encounter Location Date Provider Diagnosis Migrated_Facility 0 0 06/16/2024 Provider Migration Plan Of Treatment No Information Progress Notes * Cheyenne ZULETA PDOB:[birth year] (85 yo F)Acc No.[id number]:06/16/2024 Patient: Cheyenne JOHN :1940 A ge:83 Y S ex:Female Phone: Address:[facility] [address] [facility], [place], [address] Subjective: * Chief Complaints: * E MR-Hiar * Medical History: Arthritis, D iabetes, G laucoma, H ypertension, S welling, * Family History: M igrated Family History: : Arthritis, C ancer, D iabetes. * Medications: T akingMeloxicam , Notes to Pharmacist: *Pick strength-form from Medispan for eRX*Taking Meloxicam , Notes to Pharmacist: *Pick strength-form from Medispan for eRX* * Allergies: S ULFA (SULFONAMIDE ANTIBIOTICS): AllergyDarvocet A500: AllergyGLUCOSAMINE AND DERIVATIVES: Allergy * * Date:
--- OUTSIDE RECORDS SUMMARY | 2025-07-26 18:56 | XMS_ITS | Encounter Summary ---
Author Organization [facility] Address [address] [place] [address] Care Team Providers Care Hand Lens Polisher Name Role Phone Unavailable Primary Care Provider Unavailabl e Encounter Details Date Type Department Care Team (Late st Contact Info) Description 07/22/2025 External Device Data [place] ABSTRACTION Provider, Abstract NO ADDRESS ON FILE Social History Tobacco Use Types Packs/Day Years Used Date Smoking Tobacco: Former Cigarettes Smokeless Tobacco: Never Alcohol Use Standard Drinks/Week Comments Not Currently 1 (1 standard drink = 0.6 oz pur e alcohol) Feeling Safe Answer Date Recorded Are you in a relationship wi th someone who hurts you emotionally and/or physically? 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
--- OUTSIDE RECORDS SUMMARY | 2025-07-26 18:56 | XMS_ITS | Patient Health Record ---
Author Organization [facility] Address [address] [place] [address] Support Name Relationship Address , Niki Rodgers Emergency Contact Unknown Unavailable Cheyenne Hall Guarantor Unknown Unavailable Care Team Providers Care Gunstock Spray Unit Adjuster Name Role Phone Ralph Merino Primary Care Provider Unavailabl e Allergies Allergen (clinical drug ingredient) Drug/Non Drug Allergy documented on EMR Reaction Allergy Type Onset Date Status GLUCOSAMINE AND DERIVATIVES (uncoded) Unknown Allergy Active Darvocet A500 Unknown Drug Allergy Act ciro Substance with sulfonamide structure and antibacterial mechanism of action (substance) Sulfa Antibiotics Unknown Drug Allergy Active Reason For Referral No Information Medications Medication SIG (Take, Route, Frequency, Duration) Notes Start Date End Date Status Meloxicam *Pick strength-f orm from [facility]* Active Plan Of Treatment No Information Insurance Providers Payer Name Payer Address Payer Phone Subscriber Number Group Number Insured Name Patient Relationship to Insured Coverage Start Date Coverage End Date AARP Medicare Supplement [address] [place] [phone] [id number] Cheyenne Hall Self - patient is the insured
--- OUTSIDE RECORDS SUMMARY | 2025-07-26 18:56 | XMS_ITS | Encounter Summary ---
Author Organization [facility] Address [address] [place] [address] Care Team Providers Care Manager Client Service Name Role Phone Shannon Regan MD, Orlando Newman Primary Care Provider [phone]- [phone] Encounter Details Date Type Department Care Team (Latest Contact Info) Description 11/24/[address] 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
--- OUTSIDE RECORDS SUMMARY | 2025-07-26 18:56 | XMS_ITS | Encounter Summary ---
Author Organization [facility] Address [address] [facility] Attn: Epic Prelude ADT [place] [address] Care Team Providers Care Greenhouse Or Nursery Transplanter Name Role Phone Shannon Regan MD, Orlando Newman Primary Care Provider [phone]- [phone] Encounter Details Date Type Department Care Team (Late st Contact Info) Description 11/22/2001 Outpatient Historical Jose Clifton MD NO ADDRESS ON FILE Social History Tobacco Use Types Packs/Day Years Used Date Smoking Tobacco: Never Assessed Comments Unknown Sex and Gender Information Value Date Recorded Sex Assigned at Not on file 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
--- OUTSIDE RECORDS SUMMARY | 2025-07-26 18:56 | XMS_ITS | Clinical Summary ---
Author Organization [facility] Address [address] [place] [address] Care Team Providers Care Corporate Driver Name Role Phone Unavailable Primary Care Provider Unavailabl e Allergies Active Allergy Reactions Criticality Noted Date Comments Dye Hives High 11/30/2016 Hydrocodone Other (See Comments) High 07/25/2024 Couldn't breathe, had to go to ER Sulfa (Sulfonamide Antibiotics) Hives High 08/17/2015 Medications ALPRAZolam (XANAX) 0.25 mg tabletIndicatio ns:CARLOS (generalized anxiety disorder) TAKE 1 TABLET(0.25 MG) BY MOUTH TWICE DAILY NEEDED FOR ANXIETY 60 Tablet 2 2 Active pantoprazole (PROTONIX) 40 mg Tablet, Delayed Release (E.C.) TAKE 1 TABLET BY MOUTH DAILY 90 Tablet 3 2 Active calcium carb/magnesium ox,carb (JACLYN-MAG ORAL) Take 1 Tablet by mouth daily at bedtime. 7 Active metFORMIN (GLUCOPHAGE) 500 mg tablet TAKE 1 TABLET BY MOUTH TWICE DAILY WITH MEALS 180 Tablet 3 3 Active losartan (COZAAR) 50 mg tablet TAKE 1 TABLET BY MOUTH DAILY 90 Tablet 3 3 Active OTHER PREDNISOLONE 1%/ GATIFLOXACIN 0.5%/ KETOROLAC 0.5%. 1 DROP TO OPERATIVE EYE(S) FOR 24 DAYS. Start 3 day prior to surgery 4 mL 1 4 Active ciprofloxacin HCl (CIPRO) 500 mg tablet Take 500 mg by mouth Continuous as needed. Active meloxicam (MOBIC) 15 mg tablet Take 15 mg by mouth daily. Active predniSONE 5 mg/5 mL solution Take 5 mg by mouth daily. Active morphine (CRISTOBAL) 20 mg Extended Release capsule Take 15 mg by mouth every 12 hours. Active polyethylene glycol (MIRALAX) 17 gram Powder in Packet Take 17 Grams by mouth daily. Active magnesium oxide 250 mg magnesium Tablet Take by mouth. Activ e ascorbate calcium (UDAY-C ORAL) Take by mouth. Active OMEGA-3 FATTY ACIDS-FISH OIL ORAL Take by mouth. Activ e multivit-min/fo lic acid/lutein (CENTRUM SILVER ORAL) Take by mouth. Activ e morphine (MS IR) 15 mg tablet Take 15 mg by mouth. Takes 1/2 tablet as needed for pain Active Active Problems Problem Noted Date Diagnosed Date Encounter for long-term (cur rent) use of high-risk medication 09/28/2018 Gastroesophageal reflux disease without esophagi tis 02/27/2018 Age-related osteoporosis wit hout current pathological fracture 10/20/2017 HTN (hypertension), benign 10/20/2017 Controlled type 2 diabetes m ellitus without complication, without long-term current use of insulin 10/20/2017 CARLOS (generalized anxiety disorder) 10/20/2017 Hyperlipidemia, mixed 10/20/2017 Fibrocystic breast changes, bilateral 10/20/2017 Primary open-angle glaucoma, mild stage 10/21/19 18 Hyperopia of both eyes with astigmatism and pres byopia 01/25/2017 Glaucoma suspect of both eyes 01/04/2017 Anatomical narrow angle 01/04/2017 Encounters Date Type Department Care Team Description 07/22/2025 External Device Data [facility] ABSTRACTION Provider, Abstract 07/15/2025 External Device Data [facility] ABSTRACTION Provider, Abstract 07/08/2025 External Device Data [facility] ABSTRACTION Provider, Abstract from Last 3 Months Immunizations Immunization Administration Dates Next Due (PNEUMOVAX 23)(50 YRS UP) PN EUMOCOCCAL POLYSACCHARIDE (PPV23) 0.5 ML, IM 01/02/2019 (PREVNAR 13)(6 WKS UP) PNEUM OCOCCAL CONJUGATE (PCV13) 0.5 ML, IM 11/22/2017 INFLUENZA VACCINE HIGH DOSE QUADRIVALENT 65 YR UP PF IM 06/07/2021,06/07/2021,06/03/2020 Influenza Seasonal Unspecifi ed Formulation IM 05/21/2018 Influenza Vaccine High Dose 65+ Yrs IM 9 Family History Medical History Relation Name Comments No Known Problems Brother 1 No Known Problems Brother 2 No Known Problems Brother 3 No Known Problems Brother 4 Cancer Mother Diabetes Mother Glaucoma Mother No Known Problems Sister 1 No Known Problems Sister 2 Colon Cancer Neg Hx Relation Name Status Comments Brother 1 Brother 2 Brother 3 Brother 4 Father Mother Sister 1 Sister 2 Social History Tobacco Use Types Packs/Day Years Used Date Smoking Tobacco: Former Cigarettes Smokeless Tobacco: Never Tobacco Cessation:Counseling Given: Not Answered Alcohol Use Standard Drinks/Week Comments Not Currently 1 (1 standard drink = 0.6 oz pur e alcohol) Feeling Safe Answer Date Recorded Are you in a relationship wi th someone who hurts you emotionally and/or physically? No 08/08/2024 Comments No Sex and Gender Information Value Date Recorded Sex Assigned at Not on file Legal Sex Female 6:16 AM MEDICAL ENGINEER Gender Identity Not on file Sexual Orientation Not on file Last Filed Vital Signs Vital Sign Reading Time Taken Comments Blood Pressure 157/92 08/08/2024 9:09 AM MEDICAL ENGINEER Pulse 78 07/25/2024 8:59 AM MEDICAL ENGINEER Temperature 36.8 C (98.2 F) 08/08/2024 9:09 AM MEDICAL ENGINEER Respiratory Rate 16 08/08/2024 9:09 AM MEDICAL ENGINEER Oxygen Saturation 100% 08/08/2024 9:09 AM MEDICAL ENGINEER Inhaled Oxygen Concentration - - Weight 52.2 kg (115 lb) 08/08/2024 6:58 AM MEDICAL ENGINEER Height 157.5 cm (5' 2 ) 08/08/2024 6:58 AM MEDICAL ENGINEER Body Mass Index 21.03 08/08/2024 6:58 AM MEDICAL ENGINEER Plan of Treatment Health Maintenance Due Date Last Done Comments DTAP/TDAP/TD VACCINES (1 - Tdap) 1957 ZOSTER VACCINE (1 of 2) 1988 OSTEOPOROSIS SCREENING 2003 RSV VACCINE (60+ or ) (1 - 1-dose 75+ series) 2013 DIABETES MICROALBUMIN ANNUAL SCREEN 03/16/2021 03/16/2020, 09/25/2018, 10/20/2017 DIABETES ANNUAL FOOT EXAM 03/08/2022 03/08/2021, LDL CHOLESTEROL ANNUAL 03/08/2022 , 03/16/2020, 04/08/2019, Additional history exists DIABETES HBA1C Q 6 MONTHS 07/20/20222021, 03/08/2021, 10/08/2020, Additional history exists INFLUENZA VACCINE (#1) 2025 , 06/07/2021, 06/03/2020, Additional history exists DIABETES ANNUAL RETINAL EXAM 06/18/2025, 06/18/2024, 05/01/2024, Additional history exists PNEUMOCOCCAL VACCINE 50+ YEARS Completed 01/02/2019 , 11/22/2017 Medical Devices Implanted Type Area Director Of Curriculum Device Identifier Shelf Expiration Date Model / Serial / Lot Stent Istent Trbclr Micro-Bypass Sys Is3 - [id number] Implanted:Qty: 1 on 08/08/2024 by Silvino Nichols MD at [facility] Left: Eye [employer] 03/20/2026 IS3 / [id number] / Lens Iol Tecnis Eyhance 24.0 [id number] - [id number] Implanted:Qty: 1 on 07/25/2024 by Silvino Nichols MD at [facility] Right: Eye [employer] 04/17/2027 [id number] / [id number] / N/A Lens Iol [employer]ecnis [employer] 24.5 [id number] - [id number] Implanted:Qty: 1 on 08/08/2024 by Silvino Nichols MD at [facility] Left: Eye [employer] [id number] 01/02/2027 [id number] / [id number] / Procedures Procedure Name Priority Date/Time Associated Diagnosis Comments LIPID PANEL Routine 03/08/2021 9:35 AM CDT Hyperlipidemia, mixed HEMOGLOBIN A1C Routine 03/08/2021 9:35 AM CDT Controlled type 2 diabetes mellitus without complication, without long-term current use of insulin ([facility]) MICROALBUMIN/CREATIN INE RATIO, RANDOM UR Routine 03/16/2020 9:50 AM CDT from Last 3 Months or Most Recently Relevant to Health Maintenance Results * (ABNORMAL) HEMOGLOBIN A1C (03/08/2021 9:35 AM CDT) Pathologist [facility] HEMOGLOBIN A1C 6.7(H) <5.7 % of total Hgb [facility] Comment: For someone without known diabetes, a hemoglobin A1c value of 6.5% or greater indicates that they may have diabetes and this should be confirmed with a follow-up test. For someone with known diabetes, a value <7% indicates that their diabetes is well controlled and a value greater than or equal to 7% indicates suboptimal control. A1c targets should be individualized based on duration of diabetes, age, comorbid conditions, and other considerations. Currently, no consensus exists regarding use of hemoglobin A1c for diagnosis of diabetes for children. FASTING:NO FASTING: NO Test Performed at: [facility] [address] [place] [address] John Tenorio D.O., MPH Blood 03/08/2021 9:35 AM CDT 03/08/2021 9:36 AM CDT Orlando Ortega Jr., MD CHEMISTRY ORDERABLES Final Result [facility] [address] [place] [address] * (ABNORMAL) LIPID PANEL (03/08/2021 9:35 AM CDT) [facility] CHOLESTEROL 149 <200 mg/dL [facility] HDL 41(L) > OR = 50 mg/dL [facility] TRIGLYCERIDE 117 <150 mg/dL [facility] LDL CALCULATED 87 mg/dL (calc) [facility] Comment: Reference range: <100 Desirable range <100 mg/dL for primary prevention; <70 mg/dL for patients with CHD or diabetic patients with > or = 2 CHD risk factors. LDL-C is now calculated using the Jose calculation, which is a validated novel method providing better accuracy than the Friedewald equation in the estimation of LDL-C. Marty SIEGEL et al. KARIE. 2013;310(19): 6057-5313 (http://education.[employer].ServiceRelated/faq/UKW400) CHOL/HDL RATIO 3.6 <5.0 (calc) [facility] TOTAL NON-HDL CHOL(LDL+VLDL) 108 <130 mg/dL (calc) [facility] Comment: For patients with diabetes plus 1 major ASCVD risk factor, treating to a non-HDL-C goal of <100 mg/dL (LDL-C of <70 mg/dL) is considered a therapeutic option. Test Performed at: [facility] [address] [place] [address] John Tenorio D.O., MPH Blood 03/08/2021 9:35 AM CDT 03/08/2021 9:36 AM CDT Orlando Ortega Jr., MD CHEMISTRY ORDERABLES Final Result Performing Organization Address [facility] Co de Phone Number [phone] [place] [address] * MICROALBUMIN/CREATININE RATIO, RANDOM UR (03/16/2020 9:50 AM CDT) MICROALBUMIN, URINE <1.2 No Reference Range mg/dL 03/16/2020 7:06 PM CDT [facility] CREATININE, URINE 32.2 29.0 - 226.0 mg/dL 03/16/2020 7:06 PM CDT [facility] Comment:Reference Range vari es with fluid intake and diet. Urine URINE SPECIMEN OBTAINED BY CLEAN CATCH PROCEDURE / Unknown Collection / Unknown 03/16/2020 9:50 AM CDT 03/16/2020 3:27 PM CDT Narrative [facility] - 03/16/2020 7:06 PM CDT Condition Microalbumin/Creat ratio Normal Males <17 Normal Females <25 Microalbuminuria Males 17-299 Microalbuminuria Females 25-299 Overt proteinuria >=300 Unable to calculate urine microalbumin/creatinine ratio because urine microalbumin result is outside of reportable range. us Orlando Ortega Jr., MD URINE ORDERABLES Final Res ult [facility] NI# [id number] [address] [place] [address] from Last 3 Months or Most Recently Relevant to Health Maintenance Insurance [facility] [id number] MEDICARE PART A AND B Advance Directives For more information, please contact: [phone] Documents on File Type Date Recorded Patient Platform Power Technician Expl anation Advance Directive POA 11/30/2016 3:02 PM A dvance Directive POA Advance Directive Living Will 11/30/2016 3:02 PM Advance Directive Living Will * Full Code (Latest Code Status on File) Date Activated Date Inactivated Comments 08/08/2024 6:46 AM 08/08/2024 11:44 AM * Full Code Date Activated Date Inactivated Comments 07/25/2024 7:08 AM 07/25/2024 11:30 AM
--- OUTSIDE RECORDS SUMMARY | 2025-07-26 18:56 | XMS_ITS | Encounter Summary ---
Author Organization [facility] Address [address] [place] [address] Care Team Providers Care News Intern Name Role Phone Shannon Regan MD, Orlando Newman Primary Care Provider [phone] Reason for Referral * Radiology Services (Routine) - Closed Specialty Diagnoses / Procedures Referred By Meghna kim Referred To Contact Radiology Diagnoses RUQ pain Procedures NM HEPATOBILIARY SCAN NM HEPATOBIL W PHARM INTERV Orlando Ortega Jr., MD [address] [place] [address] [address] [place] [address] Phone: tel: fax: [facility] Nuclear Medicine [address] [place] [address] Phone: tel: fax: Referral ID Status Reason Start Date Expiration Date V isits Requested Visits Authorized [id number] Closed [facility] TO SCHEDULE (SGF) 07/19/2019 08/18/2020 1 1 CAL SERVICES ASSISTANT Encounter Details Date Type Department Care Team (Late st Contact Info) Description 08/19/2019 Ancillary Orders [facility] [address] [place] [address] [address] [place] [address] Orlando Ortega Jr., MD [address] [place], [place] [address] [address] [place] [address] RUQ pain Social History Tobacco Use Types Packs/Day Years Used Date Smoking Tobacco: Never Smokeless Tobacco: Never Alcohol Use Standard Drinks/Week Comments Yes 1 (1 standard drink = 0.6 oz pur e alcohol) Comments No Sex and Gender Information Value Date Recorded Sex Assigned at Not on file Legal Sex Female 6:47 AM MEDICAL SERVICES ASSISTANT Gender Identity Not on file Sexual Orientation Not on file documented as of this encounter Plan of Treatment Not on file documented as of this encounter Results * NM HEPATOBILIARY SCAN (08/19/2019 10:04 AM MEDICAL SERVICES ASSISTANT) Anatomical Region Laterality Modality Abdomen Nuclear Medicine 08/19/2019 10:0 4 AM MEDICAL SERVICES ASSISTANT Impressions 08/19/2019 12:21 PM MEDICAL SERVICES ASSISTANT IMPRESSION: Abnormal examination 1. No evidence of acute or chronic gallbladder disease. 2. 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 3. Normal hepatocyte function and patency of the common bile duct are also demonstrated. Narrative 08/19/2019 12:21 PM MEDICAL SERVICES ASSISTANT Radionuclide Hepatobiliary Imaging with physiologic Stimulation and Quantification: Radiopharmaceutical: Tc-99m (technetium-99m) mebrofenin Dose: 4.86 mCi IV Additional Medications: Ensure Plus Dose: 8 ounces oral BMI: Not available/71 kg Reason for Consultation: Right upper quadrant abdominal pain with history of GERD and diabetes for evaluation of hepatobiliary function The quality of this examination is acceptable with regards to count density, processed images, data display and lack of important artifacts (including but not limited to motion and attenuation artifacts). There are no previous examinations for comparison. Following the intravenous infusion of the radiopharmaceutical agent, sequential imaging was obtained over the anterior abdomen through 60 minutes. The liver is of normal size, location, and tracer distribution. There is physiologic clearance of tracer from the blood and passage into the biliary tree, with the gallbladder first observed at 30 minutes. The patient was subsequently administered the fatty meal over three minutes followed by dynamic imaging for the next 20 minutes. Review of dynamic images demonstrates normal emptying of tracer from the gallbladder with apparent reflux into stomach. Gallbladder region of interest time-activity curve derived ejection fraction is 40%, with normal being greater than 32%. Procedure Note Armen Tamayo MD - 08/19/2019 Radionuclide Hepatobiliary Imaging with physiologic Stimulation and Quantification: Radiopharmaceutical: Tc-99m (technetium-99m) mebrofenin Dose: 4.86 mCi IV Additional Medications: Ensure Plus Dose: 8 ounces oral BMI: Not available/71 kg Reason for Consultation: Right upper quadrant abdominal pain with history of GERD and diabetes for evaluation of hepatobiliary function The quality of this examination is acceptable with regards to count density, processed images, data display and lack of important artifacts (including but not limited to motion and attenuation artifacts). There are no previous examinations for comparison. Following the intravenous infusion of the radiopharmaceutical agent, sequential imaging was obtained over the anterior abdomen through 60 minutes. The liver is of normal size, location, and tracer distribution. There is physiologic clearance of tracer from the blood and passage into the biliary tree, with the gallbladder first observed at 30 minutes. The patient was subsequently administered the fatty meal over three minutes followed by dynamic imaging for the next 20 minutes. Review of dynamic images demonstrates normal emptying of tracer from the gallbladder with apparent reflux into stomach. Gallbladder region of interest time-activity curve derived ejection fraction is 40%, with normal being greater than 32%. IMPRESSION: Abnormal examination 1. No evidence of acute or chronic gallbladder disease. 2. 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 3. Normal hepatocyte function and patency of the common bile duct are also demonstrated. us Orlando Ortega Jr., MD NM ORDERABLES Final Resu lt documented in this encounter Visit Diagnoses Diagnosis RUQ pain Abdominal pain, right upper quadrant RUQ pain Abdominal pain, right upper quadrant documented in this encounter Care Teams News Intern Relationship Specialty Start Date End Date Orlando Ortega Jr., MD PCP - General Family Practice 10/20/17 documented as of this encounter
--- OUTSIDE RECORDS SUMMARY | 2025-07-26 18:56 | XMS_ITS | Clinical Summary ---
Author Organization [facility] Address [address] [place] [address] Care Team Providers Care Digital Experience Manager Name Role Phone Shannon Regan MD, Orlando Newman Primary Care Provider [phone] Allergies Active Allergy Reactions Criticality Noted Date Comments Dye Hives High 11/30/2016 Sulfa (Sulfonamide Antibiotics) Hives High 07/22 Medications CALCIUM CARB/MAGNESIUM OX,CARB (JACLYN-MAG ORAL) Take 1 Tablet by mouth daily at bedtime. Active ascorbic acid, vitamin C, (VITAMIN C) 1,000 mg Tablet Take 1,000 mg by mouth daily. Active Blood-Glucose Meter Kit Use for testing sugar daily, please supply glucose strips and lancets. 1 Kit 9 Active lancets 30 gauge 1 Lancet by [facility].(Non-Drug; Combo Route) route daily. E11.9 Test blood sugar TID 300 Each 3 1 Active blood sugar diagnostic Strip E11.9 Test blood sugar TID 300 Strip 3 1 Active atorvastatin (LIPITOR) 10 mg tablet TAKE 1 TABLET BY MOUTH DAILY WITH SUPPER 90 Tablet 3 1 Active ALPRAZolam (XANAX) 0.25 mg tabletIndicatio ns:CARLOS (generalized anxiety disorder) Take 1 Tablet (0.25 mg) by mouth 2 times daily as needed for Anxiety. 60 Tablet 5 1 Active timoloL maleate (TIMOPTIC) 0.5% solutionIndicat ions:Primary open angle glaucoma (POAG) of both eyes, moderate stage Administer 1 Drop in both eyes 2 times daily. 15 mL 2 1 Active pantoprazole (PROTONIX) 40 mg Tablet, Delayed Release (E.C.) TAKE 1 TABLET BY MOUTH DAILY 90 Tablet 3 06/28/202 1 Active losartan (COZAAR) 50 mg tablet TAKE 1 TABLET BY MOUTH DAILY 90 Tablet 3 1 Active metFORMIN (GLUCOPHAGE) 500 mg tablet TAKE 1 TABLET BY MOUTH TWICE DAILY WITH MEALS 180 Tablet 3 1 Active Active Problems Problem Noted Date Diagnosed Date Encounter for long-term (cur rent) use of high-risk medication 09/28/2018 Gastroesophageal reflux disease without esophagi tis 02/27/2018 Age-related osteoporosis wit hout current pathological fracture 10/20/2017 HTN (hypertension), benign 10/20/2017 Controlled type 2 diabetes m ellitus without complication, without long-term current use of insulin 10/20/2017 CARLOS (generalized anxiety disorder) 10/20/2017 Fibrocystic breast changes, bilateral 10/20/2017 Hyperlipidemia, mixed 10/20/2017 Primary open-angle glaucoma, mild stage 10/21/19 18 Hyperopia of both eyes with astigmatism and pres byopia 01/25/2017 Glaucoma suspect of both eyes 01/04/2017 Anatomical narrow angle 01/04/2017 Immunizations Immunization Administration Dates Next Due (PNEUMOVAX 23)(50 YRS UP) PN EUMOCOCCAL POLYSACCHARIDE (PPV23) 0.5 ML, IM 01/02/2019 (PREVNAR 13)(6 WKS UP) PNEUM OCOCCAL CONJUGATE (PCV13) 0.5 ML, IM 11/22/2017 INFLUENZA VACCINE HIGH DOSE QUADRIVALENT 65 YR U P PF IM 06/03/2020 Influenza Seasonal Unspecified Formulation IM Influenza Vaccine High Dose 65+ Yrs IM 9 Family History Medical History Relation Name Comments No Known Problems Brother 1 No Known Problems Brother 2 No Known Problems Brother 3 No Known Problems Brother 4 Cancer Mother Diabetes Mother No Known Problems Sister 1 No Known Problems Sister 2 Colon Cancer Neg Hx Relation Name Status Comments Brother 1 Brother 2 Brother 3 Brother 4 Father Mother Sister 1 Sister 2 Social History Tobacco Use Types Packs/Day Years Used Date Smoking Tobacco: Never Smokeless Tobacco: Never Tobacco Cessation:Counseling Given: No Alcohol Use Standard Drinks/Week Comments Yes 1 (1 standard drink = 0.6 oz pur e alcohol) Comments No Sex and Gender Information Value Date Recorded Sex Assigned at Not on file Legal Sex Female 6:47 AM 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 Gender Identity Not on file Sexual Orientation Not on file Last Filed Vital Signs Vital Sign Reading Time Taken Comments Blood Pressure 132/78 02/02/2021 9:56 AM CDT Pulse 90 02/02/2021 9:56 AM CDT Temperature 36.6 C (97.9 F) 02/02/2021 9:56 AM CDT Respiratory Rate 18 02/02/2021 9:56 AM CDT Oxygen Saturation 96% 02/02/2021 9:56 AM CDT Inhaled Oxygen Concentration - - Weight 70.5 kg (155 lb 6.4 oz) 02/02/2021 9:56 A M CDT Height 160 cm (5' 3 ) 02/02/2021 9:56 AM CDT Body Mass Index 27.53 02/02/2021 9:56 AM CDT Plan of Treatment Health Maintenance Due Date Last Done Comments DTAP/TDAP/TD VACCINES (1 - Tdap) 1959 Traditional Medicare (ACO) A nnual Wellness Visit 1959 ZOSTER VACCINE (1 of 2) 1988 OSTEOPOROSIS SCREENING 2003 RSV VACCINE (60+ or ) (1 - 1-dose 75+ series) 2013 DIABETES ANNUAL FOOT EXAM 03/16/20212019, 03/16/2020, 02/27/2018, Additional history exists DIABETES MICROALBUMIN ANNUAL SCREEN 03/16/2021 03/16/2020, 09/25/2018, 10/20/2017 LDL CHOLESTEROL ANNUAL 03/16/2021 0, 04/08/2019, 09/25/2018, Additional history exists DIABETES HBA1C Q 6 MONTHS 04/07/20212020, 03/16/2020, 04/08/2019, Additional history exists DIABETES ANNUAL RETINAL EXAM 03/21/202508/2023, 03/19/2024, 04/13/2020, Additional history exists INFLUENZA VACCINE (#1) 2025 0, 06/06/2019, 05/21/2018 PNEUMOCOCCAL VACCINE 50+ YEARS Completed 01/02/2019 , 11/22/2017 Procedures Procedure Name Priority Date/Time Associated Diagnosis Comments HEMOGLOBIN A1C Routine 10/08/2020 9:17 AM 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 Type 2 diabetes mellitus without complication, without long-term current use of insulin ([facility]) MICROALBUMIN/CREATIN INE RATIO, RANDOM UR Routine 03/16/2020 9:50 AM CDT Type 2 diabetes mellitus without complication, without long-term current use of insulin ([facility]) LIPID PANEL Routine 03/16/2020 9:36 AM CDT Type 2 diabetes mellitus without complication, without long-term current use of insulin ([facility]) from Last 3 Months or Most Recently Relevant to Health Maintenance Results * (ABNORMAL) HEMOGLOBIN A1C (10/08/2020 9:17 AM 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) HEMOGLOBIN A1C 6.9(H) See Comment % 10/08/2020 4:33 PM 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 [facility] EST. AVG GLUCOSE, A1C 151 mg/dL 10/08/2020 4:33 PM 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 [facility] Blood Venipuncture / Unknown 10/08/2020 9:17 AM 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 10/08/2020 9:17 AM 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 Narrative [facility] - 10/08/2020 4:33 PM 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 HGB A1C INTERPRETATION NORMAL: <5.7% PRE-DIABETES: 5.7 - 6.4% DIABETES: 6.5% OR GREATER Falsely low A1C measurements can occur when: 1. Anemia and/or hemolytic anemia is present. 2. Hemoglobin variants present. 3. Renal failure. 4. Transfusion of blood product in the last 120 days. We recommend ordering a fructosamine test([id number]) to more accurately assess glycemic status if any of the above conditions are present. us Belinda Tiwari [facility] CHEMISTRY ORDERABLES Final Resu lt [facility] CLIA# [id number] [address] [place] [address] * MICROALBUMIN/CREATININE RATIO, RANDOM UR (03/16/2020 9:50 AM CDT) MICROALBUMIN, URINE <1.2 No Reference Range mg/dL 03/16/2020 7:06 PM CDT [facility] CREATININE, URINE 32.2 29.0 - 226.0 mg/dL 03/16/2020 7:06 PM T [facility] Comment:Reference Range vari es with fluid intake and diet. Urine URINE SPECIMEN OBTAINED BY CLEAN CATCH PROCEDURE / Unknown Collection / Unknown 03/16/2020 9:50 AM CDT 03/16/2020 9:50 AM CDT [facility] - 03/16/2020 7:06 PM CDT Condition Microalbumin/Creat ratio Normal Males <17 Normal Females <25 Microalbuminuria Males 17-299 Microalbuminuria Females 25-299 Overt proteinuria >=300 Unable to calculate urine microalbumin/creatinine ratio because urine microalbumin result is outside of reportable range. us Orlando Ortega Jr., MD URINE ORDERABLES Final Res ult [facility] [facility]# [id number] [address] [place] [id number] * (ABNORMAL) LIPID PANEL (03/16/2020 9:36 AM CDT) CHOLESTEROL 141 <200 mg/dL 03/16/2020 10:21 AM CDT [facility] [place] TRIGLYCERIDE 176(H) <150 mg/dL 03/16/2020 10:21 AM CDT [facility] [place] HDL 44 40 - 59 mg/dL 03/16/2020 10:21 AM T [facility] [place] LDL CALCULATED 62 <100 mg/dL 03/16/2020 10:21 AM CDT [facility] [place] NON-HDL CHOLESTEROL 97 <130 mg/dL 03/16/2020 10:21 AM T [facility] [place] Blood Venipuncture / Unknown 03/16/2020 9:36 AM CDT 03/16/2020 9:36 AM CDT Narrative [facility] [place] - 03/16/2020 10:21 AM CDT TOTAL CHOLESTEROL mg/dL Desirable <200 Borderline high 200-239 High >=240 TRIGLYCERIDES mg/dL Normal <150 Borderline high 150-199 High 200-499 Very high >=500 HDL CHOLESTEROL mg/dL Low <40 Normal 40-59 Desirable >=60 NON HDL CHOLESTEROL mg/dL Optimal <130 Near Optimal 130-159 Borderline High 160-189 Very High >=190 CALCULATED LDL mg/dL LDL <70, OPTIMAL if have Atherosclerotic cardiovascular disease (ASCVD) or intermediate or higher (>7.5%) 10 year risk of ASCVD including most adults with diabetes. LDL <100, Optimal in adult patients with low (<7.5%) 10 year ASCVD risk LDL 100-160, Suboptimal LDL >160, High LDL >190, Very high ATPIII Guidelines Reference Ranges for Lipid Panels (NCEP/AMA) . 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
[2025-07-26 19:02] VITALS: BP 229/98; PULSE 97; RESP 18; TEMP 36.6; O2SAT 98; BMI 23.0
--- NOTE | 2025-07-26 19:46 | XRR_ITS ---
PROCEDURE INFORMATION: Exam: XR Left Wrist Exam date and time: 07/26/2025 7:51 PM Age: 85 years old Clinical indication: Injury or trauma; Blunt trauma (contusions or hematomas); Left; Ground level fall. C/O wrist pain with swelling. ; Additional info: Fall wrist pain TECHNIQUE: Imaging protocol: Radiologic exam of the left wrist. Views: 3 or more views. Total images: 3 COMPARISON: No relevant prior studies available. FINDINGS: Bones/joints: Distal ulna longitudinally oriented sagittal split fracture and ulnar styloid avulsion fracture. Distal radial intra-articular impacted Colles fracture with dorsal angulation of the distal radial articular surface 15 degrees. First (1st) carpometacarpal (CMC) severe degenerative arthritis and triscaphe (scaphotrapeziumtrapezoid) joint mild degenerative osteoarthritis. First metacarpophalangeal joint moderate degenerative osteoarthritis. Soft tissues: Moderate dorsal wrist soft tissue swelling. No manifestations of laceration, subcutaneous emphysema or unexpected retained soft tissue radiopaque foreign body. XR/XR wrist LT min 3V* [id number] IMPRESSION: 1. Distal ulna longitudinally oriented sagittal split fracture and ulnar styloid avulsion fracture. 2. Distal radial intra-articular impacted Colles fracture with dorsal angulation of the distal radial articular surface 15 degrees and mild foreshortening with accounting for ulnolunate abutment. 3. Degenerative osteoarthritis.
--- NOTE | 2025-07-26 19:46 | XRR_ITS ---
PROCEDURE INFORMATION: Exam: XR Left Knee Exam date and time: 07/26/2025 7:51 PM Age: 85 years old Clinical indication: Injury or trauma; Blunt trauma; Left; Ground level fall. C/O knee pain. ; Additional info: Fall knee pain TECHNIQUE: Imaging protocol: Radiologic exam of the left knee. Views: 3 views. Total images: 264 COMPARISON: No relevant prior studies available. FINDINGS: Limitations: No fiducial skin marker was placed at the site of clinical concern. Bones/joints: No acute displaced fracture, subluxation or dislocation. No intrinsic osseous abnormality identified. Soft tissues: Soft tissues are normal as visualized, demonstrating no masses or swelling/induration. No manifestations of laceration, subcutaneous emphysema or unexpected retained soft tissue radiopaque foreign body. XR/XR knee LT 3V* [id number] IMPRESSION: No acute displaced fracture, subluxation or dislocation. COMMENTS: For ongoing symptoms consider CR in 7-10 days with fiducial marker; CT earlier for higher acute clinical concern or MRI for ongoing persistent/progressive symptoms.
--- NOTE | 2025-07-26 19:46 | CTR_ITS ---
PROCEDURE INFORMATION: Exam: CT Head Without Contrast Exam date and time: 07/26/2025 8:01 PM Age: 85 years old Clinical indication: Injury or trauma; Blunt trauma (contusions or hematomas); Patient tripped sustaining fall with head strike. ; Additional info: Fall hit head TECHNIQUE: Imaging protocol: Computed tomography of the head without contrast. Total images: 363 Radiation optimization: All CT scans at this facility use at least one of these dose optimization techniques: automated exposure control; mA and/or kV adjustment per patient size (includes targeted exams where dose is matched to clinical indication); or iterative reconstruction. COMPARISON: No relevant prior studies available. RADIATION DOSE METRICS: Total DLP (mGy-cm): 977.58 FINDINGS: Brain: Brain parenchyma moderate generalized involutional (atrophic) changes. Deep white matter mild-moderate low attenuation, a nonspecific finding most frequently accounted for by chronic microangiopathic changes in a patient of this age, which can be interpreted based on clinical context. No specific abnormal density within the brain parenchyma. No mass-effect or edema, or pathologic shift of midline structures. No acute intracranial hemorrhage. Satisfactory rudolph-white matter differentiation. Normal anatomy of the posterior fossa, cerebellum, sneha and medulla allowing for the degree of cerebral parenchymal volume loss. Cerebral ventricles: CSF spaces demonstrate moderate generalized enlargement of the ventricles, cisterns and other subarachnoid spaces commensurate with patient's age. Pituitary gland and sella: Sella turcica partially empty with thin pituitary tissue along the floor, consistent with empty sella. Paranasal sinuses: Anterior ethmoid sinus mild mucosal thickening. Sphenoid sinus air-fluid levels characteristic of favoring suppurative sinusitis, although posttraumatic hemorrhage-blood products cannot be categorically excluded in the appropriate clinical setting. Mastoid air cells: Visualized mastoid air cells and tympanic cavities are clear. Orbital cavities: Thinning of the lenses of the globes consistent with prior lens surgery. Teeth: Maxillary alveolar ridge resorption consistent with edentulism. 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 Extensive mandibular reconstructive bridge work. No intrinsic osseous abnormality identified. Soft tissues: No localized pathologic scalp posttraumatic soft tissue swelling or subcutaneous emphysema. No manifestations of laceration, subcutaneous emphysema or unexpected retained soft tissue radiopaque foreign body. Vasculature: Satisfactory major vessel density and caliber characteristic of flowing intravascular blood. Right carotid siphon moderate atheromatous calcific plaque. Left carotid siphon moderate atheromatous calcific plaque. CT/CT head wo con* [id number] IMPRESSION: 1. No acute intracranial abnormalities identified. Specifically no CT evidence of mass, hemorrhage, or acute infarction. 2. Sphenoid sinus air-fluid levels characteristic of favoring suppurative sinusitis, although posttraumatic hemorrhage-blood products cannot be categorically excluded in the appropriate clinical setting. 3. Age-expected moderate cerebral atrophy with chronic small vessel ischemic changes. 4. 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 5. Partially empty sella, likely incidental. Correlate clinically. No mass or other abnormality identified. COMMENTS: Empty sella, commonly encountered incidental finding in isolation, or in the setting of obesity and can occasionally be associated with increased intracranial pressure; normal pressure hydrocephalus (NPH). Follow-up imaging usually not necessary unless symptomatic. Correlate with clinical symptoms of headache, visual changes or hormonal imbalance.
[2025-07-26 19:48] VITALS: BP 196/116; PULSE 81; O2SAT 98
--- NOTE | 2025-07-26 20:53 | ED_ITS ---
HPI - Fall General: Chief Complaint: Fall Stated Complaint: Fall L Side L arm and leg pain Time Seen by Provider: 07/26/25 19:38 History of Present Illness: Patient is an 85-year-old female who presents to the emergency department after a fall that occurred while getting out of a car to attend her great- granddaughter's [employer] play. Patient reports that she turned and fell suddenly, describing that 'it happened so fast.' She states she 'bounced' on her right side, injuring her left wrist and left knee. Patient reports significant pain in both areas. She denies significant head trauma, though per accompanying person, she 'hit her head on the tire, but not bad.' Patient denies head pain. She attributes the fall to her footwear, stating 'these stupid shoes' as a potential cause. No loss of consciousness reported. No chest pain, abdominal pain, or hip pain reported. Related Data Home Medications ?Medication ?Instructions ?Recorded ?Confirmed ascorbate calcium (vitamin C) 500 1,000 mg PO DAILY 05/29/24 mg tablet diclofenac sodium 1 % topical gel 2 - 4 g topical QID PRN Pain 08/02/23 05/29/24 (Aspercreme Arthritis Pain) latanoprost 0.005 % eye drops 1 drp ophthalmic (eye) B EDTIME 08/02/23 05/29/24 timolol maleate 0.5 % eye drops 1 drp ophthalmic (eye) BID 08/02/23 05/29/24 Previous Rx's ?Medication ?Instructions ?Recorded epinephrine 0.3 mg/0.3 mL 0.3 mg (0.3 mL) IM Q10M PRN 11/17/22 injection, auto-injector (EpiPen anaphylaxis #2 ea 2-Jaret) miconazole nitrate 2 % topical 1 applic topical BID fu ngal skin 05/07/24 cream infection #30 grams nystatin 100,000 unit/gram topical 1 applic topical TI D tinea #30 09/30/24 cream grams gabapentin 100 mg capsule 200 mg (2 x 100 mg) PO TID 0 11/28/24 neuropathic pain #180 caps meloxicam 15 mg tablet See Rx Instructions .Route 0 12/25/24 .COMPLEX #90 tabs pantoprazole 40 mg tablet,delayed See Rx Instructions .Route 12/25/24 release .COMPLEX #90 tabs prednisone 10 mg tablet 10 - 20 mg (1 - 2 x 10 mg) P O QAM 02/13/25 arthritis #180 tabs alprazolam 0.25 mg tablet (Xanax) 0.25 mg PO TID PRN a nxiety #90 tabs 04/11/25 ondansetron HCl 4 mg tablet 4 mg PO Q8H PRN nausea and 05/01/25 vomiting #30 tabs losartan 50 mg tablet 50 mg PO QAM bp #90 tabs 08/14 metformin 500 mg tablet 500 mg PO BID sugars #180 ta bs 07/02/25 methadone 5 mg tablet 5 mg PO Q8H chronic pain, arthritis 30 days #90 tabs Allergies Allergy/AdvReac Type Severity Reaction Status Date / Time hydrocodone Allergy ALGY-Anaphy Verified 07/26/25 19:09 laxis Sulfa (Sulfonamide Allergy ALGY-Hives Verified 07/26/25 19:09 Antibiotics) [facility] ED PFSH: Medical History (Updated 07/26/25 @ 21:03 by Reji Warren DO) Lumbar stenosis with neurogenic claudication GERD (gastroesophageal reflux disease) Surgical History History of back surgery Family History Mother Diabetes Lung cancer Social History Smoking and tobacco/nicotine status: never used tobacco/nicotine Quit status (tobacco/nicotine): not considering quitting Second hand smoke exposure: No Alcohol intake: never Substance/Drug Use: never Physical Exam Const: COMMON NORMALS: no acute distress GENERAL APPEARANCE: cooperative; not ill appearing HENMT: COMMON NORMALS: normocephalic and atraumatic HEAD & SCALP: normocephalic and atraumatic Eye: COMMON NORMALS: Equal, round and reactive pupils present and EOMs intact bilaterally PUPIL: Yes Equal, round and reactive pupils present Neck/C-Spine: CERVICAL SPINE: Yes cervical ROM normal and No Cervical spine tenderness Resp: COMMON NORMALS: normal respiratory effort and clear to auscultation bilaterally AUSCULTATION: clear to auscultation bilaterally Cardio: COMMON NORMALS: regular rate and regular rhythm RATE: regular rate RHYTHM: regular rhythm GI: COMMON NORMALS: Soft to palpation PALPATION: Yes Soft to palpation and No Tenderness to palpation present (GI) Extremity: NARRATIVE EXTREMITY EXAM: Examination of the left upper extremity reveals deformity to the distal radius or at the wrist. There is tenderness and ecchymosis here. Sensation is intact distally. Examination left lower extremity reveals no deformity. There is tenderness over the lateral knee. No femoral or hip tenderness. No tenderness in the leg. Ankle is not injured. Distal pulses are present Course Vital Signs: Vital signs: Vital Signs Temperature 97.9 F 07/26/25 19:02 Pulse Rate 81 07/26/25 19:48 Respiratory Rate 18 07/26/25 19:02 Blood Pressure 196/116 07/26/25 19:48 Pulse Oximetry 98 07/26/25 19:48 Oxygen Delivery Me thod Room Air 07/26/25 19:48 MDM - Fall Medical Decision Making Comminuted intra-articular distal radius fracture. Some angulation. Given intra-articular nature, will likely require fixation. She will be placed in a sugar-tong splint. Follow-up orthopedics. No lower extremity fracture noted. CT head is nonacute. She takes methadone. She is quite hypertensive here, but it is improved on repeat testing. Lab Data Radiology Impressions Head CT 07/26/25 19:46 IMPRESSION: 1. No acute intracranial abnormalities identified. Specifically no CT evidence of mass, hemorrhage, or acute infarction. 2. Sphenoid sinus air-fluid levels characteristic of favoring suppurative sinusitis, although posttraumatic hemorrhage-blood products cannot be categorically excluded in the appropriate clinical setting. 3. Age-expected moderate cerebral atrophy with chronic small vessel ischemic changes. 4. 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 5. Partially empty sella, likely incidental. Correlate clinically. No mass or other abnormality identified. COMMENTS: Empty sella, commonly encountered incidental finding in isolation, or in the setting of obesity and can occasionally be associated with increased intracranial pressure; normal pressure hydrocephalus (NPH). Follow-up imaging usually not necessary unless symptomatic. Correlate with clinical symptoms of headache, visual changes or hormonal imbalance. Knee X-Ray 07/26/25 19:46 IMPRESSION: No acute displaced fracture, subluxation or dislocation. COMMENTS: For ongoing symptoms consider CR in 7-10 days with fiducial marker; CT earlier for higher acute clinical concern or MRI for ongoing persistent/progressive symptoms. Wrist X-Ray 07/26/25 19:46 IMPRESSION: 1. Distal ulna longitudinally oriented sagittal split fracture and ulnar styloid avulsion fracture. 2. Distal radial intra-articular impacted Colles fracture with dorsal angulation of the distal radial articular surface 15 degrees and mild foreshortening with accounting for ulnolunate abutment. 3. Degenerative osteoarthritis. All radiology interpretation(s) finalized by discharge Discharge Plan Discharge Patient Disposition: Home Clinical Impression: Closed fracture distal radius and ulna Qualifiers: Encounter type: initial encounter Laterality: left Qualified Code(s): S52.502A - Unspecified fracture of the lower end of left radius, initial encounter for closed fracture Condition: Stable Prescriptions: No Action nystatin 100,000 unit/gram cream 1 applic topical TID Qty: 30 3RF ondansetron HCl 4 mg tablet 4 mg PO Q8H PRN (Reason: nausea and vomiting) Qty: 30 3RF miconazole nitrate 2 % cream 1 applic topical BID Qty: 30 1RF prednisone 10 mg tablet 10 - 20 mg PO QAM Qty: 180 1RF gabapentin 100 mg capsule 200 mg PO TID Qty: 180 0RF meloxicam 15 mg tablet See Rx Instructions .ROUTE .COMPLEX Qty: 90 3RF Dose Instruction: TAKE 1 TABLET BY MOUTH DAILY FOR ARTHRITIS PAINS Rx Instructions: TAKE 1 TABLET BY MOUTH DAILY FOR ARTHRITIS PAINS pantoprazole 40 mg tablet,delayed release (DR/EC) See Rx Instructions .ROUTE .COMPLEX Qty: 90 3RF Dose Instruction: TAKE 1 TABLET BY MOUTH DAILY FOR STOMACH Rx Instructions: TAKE 1 TABLET BY MOUTH DAILY FOR STOMACH alprazolam [Xanax] 0.25 mg tablet 0.25 mg PO TID PRN (Reason: anxiety) Qty: 90 5RF metformin 500 mg tablet 500 mg PO BID Qty: 180 3RF losartan 50 mg tablet 50 mg PO QAM Qty: 90 3RF methadone 5 mg tablet 5 mg PO Q8H 30 Days Qty: 90 0RF epinephrine [EpiPen 2-Jaret] 0.3 mg/0.3 mL auto-injector 0.3 mg IM Q10M PRN (Reason: anaphylaxis) Qty: 2 0RF Rx Instructions: for 2 doses latanoprost 0.005 % drops 1 drp ophthalmic (eye) BEDTIME Rx Instructions: both eyes ascorbate calcium (vitamin C) 500 mg Tablet 1,000 mg PO DAILY timolol maleate 0.5 % drops 1 drp ophthalmic (eye) BID Rx Instructions: both eyes diclofenac sodium [Aspercreme Arthritis Pain] 1 % Gel 2 - 4 g TOPICAL QID PRN (Reason: Pain) Discharge Orders: Discharge ED (Routine); Ordered 07/26/25 Ordered By: Reji Warren Referrals: Yenifer Jorgensen MD [Physician, Orthopedics] - 1-3 days Cheko Palacios DO [Primary Care Provider, Family Practice] Patient Instructions: Wrist Fracture in Adults (ED), Opioid Safety, Pain Management, Patient Portal & [place] Instructions Activity Restrictions/Additional Instructions: Stay in your splint until seen by orthopedics. Call the number above on Monday for a follow-up appointment this coming week. Return for any problems. You may take Tylenol, ice, or use your home pain medication for pain. Print Language: Upper Sorbian Coding Level of Care Code ED Primary Grade Teacher for Rene Haney
== END 2025-07-26 21:37 | disposition home or self-care (01) ==
PROVIDERS: Emergency Provider Emergency Medicine; PCP Family Medicine
DX: S52.502A Unspecified fracture of the lower end of left radius, initial encounter for closed fracture (principal); Z79.84 Long term (current) use of oral hypoglycemic drugs; W19.XXXA Unspecified fall, initial encounter
CPT/HCPCS: 70450; 73110; 73562; 99284

== ENCOUNTER → 2025-07-28 13:49 | Outpatient (BNVA) | payer MEDICARE, SELFPAY | PROVIDERS: PCP Family Medicine; Visit Provider Specialist | DX: Z01.818 Encounter for other preprocedural examination (principal); S52.502A Unspecified fracture of the lower end of left radius, initial encounter for closed fracture; S52.602A Unspecified fracture of lower end of left ulna, initial encounter for closed fracture; W19.XXXA Unspecified fall, initial encounter | CPT/HCPCS: 36415; 73110; 80053; 81001; 85025; 99205 ==

== ENCOUNTER 2025-07-29 08:37 | Day surgery (SDC) | payer MEDICARE, SELFPAY ==
[2025-07-29] VITALS (16 sets, daily range): BP systolic 137–200; BP diastolic 69–121; PULSE 86–116; RESP 16–18; TEMP 36.6–37.1; O2SAT 94–98; BMI 22.1
--- NOTE | 2025-07-29 09:12 | ECG_ITS ---
[facility] Test Date: 2025-07-29 Pat Name: Cheyenne Hall Department: Room: Gender: Female Adjunct Business Instructor: : 1940 Requested By: Michael Green Order Number: [id number] Reading MD: Measurements Intervals [place] Rate: 95 P: 0 GA: 0 QRS: 66 QRSD: 82 T: 54 QT: 333 QTc: 420 Interpretive Statements ATRIAL FIBRILLATION MODERATE VOLTAGE CRITERIA FOR LVH, CONSIDER NORMAL VARIANT [MEETS CRITERIA IN ONE OF: R(aVL), S(V1), R(V5), R(V5/V6)+S(V1)] MODERATE ST DEPRESSION [0.05+ mV ST DEPRESSION] [email or web address]
[2025-07-29] MEDS: acetaminophen 1,000 MG/100 ML PIGGYBACK 400 MG IV (09:29)
--- NOTE | 2025-07-29 09:48 | W.PM.OPSUD ---
Surgery/Procedure H&P Update DATE OF PROCEDURE: July 29, 2025 DATE H&P PERFORMED: 07/28/25 H&P UPDATE INFORMATION: I have reviewed H&P completed within last 30 days, I have examined patient prior to procedure, No changes to prior documentation, H&P is in [facility] EMR on date indicated and Risks and benefits of the procedure reviewed PLANNED PROCEDURE: Operation Date: 07/29/25 10:35 Proposed Procedures p ORIF Distal Radius Open Reduction Internal Fixation Distal Radius(Left) - Yenifer Jorgensen MD Related Problem List Diagnoses 1. Closed fracture of distal ends of left radius and ulna, initial encounter: Qualifiers: Encounter type: initial encounter Laterality: left
--- NOTE | 2025-07-29 10:01 | ANES.PREANE2 ---
Pre-Anesthetic Assessment Height/Weight: Height 5 ft 3 in Weight 125 lb Temp Pulse Resp BP Pulse Ox O2 Del Method 98.7 F 92 16 187/80 97 Room Air 07/29/25 09:30 07/29/25 09:43 07/29/25 09:30 07/29/25 09:43 07/29/25 09:30 07/29/25 09:30 Preop Diagnosis: Left radius fracture Operation Date: 07/29/25 10:35 Proposed Procedures p ORIF Distal Radius Open Reduction Internal Fixation Distal Radius(Left) - Yenifer Jorgensen MD Was Beta Justa taken within 24 hours: N/A Was Clonidine taken within 24 hours: N/A Last intake: Intake Last Liquid Date 07/28/25 Last Liquid Time 23:00 Last Solid Date 07/28/25 Last Solid Time 20:00 Social No alcohol and No tobacco Exam alert, oriented x 3, clear to auscultation bilaterally and regular rate & rhythm Airway Submandibular: within normal limits Cervical ROM: within normal limits Mallampati: Class III Dentition: full Anesthetic Plan ASA status: 3 Anesthesia: General and Regional (specify below) Other: No prior issues with anesthesia NPO since yesterday evening History of GERD on Protonix Hypertension on losartan. Preop BP 187/80. Patient states she is very nervous today Type 2 diabetes on metformin On chronic methadone for arthritis. Last dose taken yesterday evening Labs reviewed 07/28/2025 acceptable for procedure today EKG performed today showing PACs. Computer degeneration documented A-fib but this is not the case Plan for general anesthesia with preop nerve block Medications/Allergies Home Medications ?Medication ?Instructions ?Recorded ?Confirmed ?Last Taken ?Type epinephrine 0.3 mg/0.3 mL 0.3 mg (0.3 mL) IM Q10M PRN 11/17/22 07/28/25 Unknown Rx injection, auto-injector (EpiPen anaphylaxis #2 ea 2-Jaret) diclofenac sodium 1 % topical gel 2 - 4 g topical QID PRN Pain 08/02/23 07/28/25 07/28/25 History (Aspercreme Arthritis Pain) meloxicam 15 mg tablet See Rx Instructions .Route 12/25/24 07/28/25 07/28/25 Rx .COMPLEX #90 tabs prednisone 10 mg tablet 10 - 20 mg (1 - 2 x 10 mg) PO QAM 02/13/25 07/28/25 07/28/25 Rx arthritis #180 tabs alprazolam 0.25 mg tablet (Xanax) 0.25 mg PO TID PRN anxiety #90 tabs 04/11/25 07/28/25 07/28/25 Rx ondansetron HCl 4 mg tablet 4 mg PO Q8H PRN nausea and 05/01/25 07/28/25 Unknown Rx vomiting #30 tabs losartan 50 mg tablet 50 mg PO QAM bp #90 tabs 07/02/25 07/28/25 07/28/25 Rx metformin 500 mg tablet 500 mg PO BID sugars #180 tabs 07/02/25 07/28/25 07/28/25 Rx methadone 5 mg tablet 5 mg PO Q8H chronic pain, 07/15/25 07/28/25 07/28/25 Rx arthritis 30 days #90 tabs nitrofurantoin 100 mg PO Q12H 5 days #10 caps 07/28/25 07/29/25 07/28/25 Rx monohydrate/macrocrystals 100 mg capsule (Macrobid) pantoprazole 40 mg tablet,delayed 40 mg PO DAILY 07/28/25 07/28/25 Unknown History release Allergies Allergy/AdvReac Type Severity Reaction Status Date / Time hydrocodone Allergy ALGY-Anaphy Verified 07/28/25 14:14 laxis Sulfa (Sulfonamide Allergy ALGY-Hives Verified 07/28/25 14:14 Antibiotics) Current Medications Generic Name Dose Route Start Last Admin Trade Name Freq PRN Reason Stop Dose Admin Sodium Chloride 1,000 mls @ 30 mls/hr 07/29/25 09:30 07/29/25 09:29 Sodium Chloride 0.9% IV 07/30/25 09:29 30 mls/hr .Q24H ESTRELLA Administration PFSH Anesthesia Medical History (Updated 07/28/25 @ 16:38 by Yenifer Jorgensen MD) Lumbar stenosis with neurogenic claudication GERD (gastroesophageal reflux disease) Surgical History (Updated 07/28/25 @ 16:06 by Soledad Sloan) History of back surgery Family History Mother Diabetes Lung cancer Social History Smoking and tobacco/nicotine status: never used tobacco/nicotine Quit status (tobacco/nicotine): not considering quitting Second hand smoke exposure: No Alcohol intake: never Substance/Drug Use: never
--- NOTE | 2025-07-29 10:04 | ANES.PROC ---
Anesthesia Procedures Procedure/Date: 07/29/25 Left supraclavicular nerve block for postoperative pain control Nerve Block ^: Nerve Block 1: Main Anesthesia: other (100 mcg fentanyl) Time Out Performed: Yes Consent: requested by attending/covering physician and from patient Laterality: Left Nerve block location: supraclavicular Anesthesia monitors applied: pulse oximetry, EKG, BP cuff and oxygen Nerve block position: supine Anesthetic Used: ropivicaine 0.5% Amount of anesthesia used (mL): 30 Ultrasound used to: recognize landmarks Nerve Stimulator Used?: Yes Interscalene/Femoral BLK: other needle (pjunk 4inch) Injection: neg aspiration of heme Patient Tolerated Procedure: well Complications: none Additional Comments: decadron 4mg added to block
[2025-07-29] MEDS: ceFAZolin 2,000 mg SDV 2000 MG IVP (10:21)
[2025-07-29] MEDS: ceFAZolin 1,000 mg SDV 1000 MG IRRIGATION (11:04)
--- NOTE | 2025-07-29 11:22 | SUR.PREOP ---
10:00 LEFT INTRASCALENE NERVE BLOCK PERFORMED BY DOCTOR BAKER USING 0.5% ROPIVACAINE 30ml WITH DECADRON 4mg. PT ON MONITOR SHOWING NSR, AND O2 AT 3L/M . PT TOLERATED PROCEDURE WELL.
--- NOTE | 2025-07-29 12:00 | PM.OP ---
Operative Report Date of procedure: July 29, 2025 Pre-op diagnosis: Comminuted intra-articular left distal radius fracture Post-op diagnosis: Comminuted intra-articular left distal radius fracture Post-op findings: Significant comminution with intra-articular extension of the distal radius fracture Procedure done: Open reduction internal fixation left comminuted intra-articular distal radius fracture Implants: Extra short left volar distal radius plate, Laura Specimens removed/disposition: None Pathology: None Surgeon: Yenifer Jorgensen MD [employer]ined [employer] Metal Sprayer: Melania Garay, nurse practitioner, whose services were required for reduction, plate positioning, retraction, closure, and completion of the surgical procedure Anesthesia: General (Per LMA, ASA 3) Estimated blood loss (mL): 10 Tourniquet time (min): 49 (At 250 mmHg) IV fluids (mL): 800 Urine output (mL): 0 (No Kurtz) Complications: None Findings: Significant comminution and displacement with shortening left intra-articular distal radius fracture Condition: stable Disposition: PACU (Then return to same-day surgery for discharge to home) Brief History: This 85-year-old lady was in her usual state of health when she fell onto her left side. She suffered a comminuted, shortened, angulated left distal radius fracture. She was seen in the office and offered nonoperative treatment as well as operative treatment. After discussion of the risks and complications of each of these treatments, she wished to proceed with open reduction internal fixation. Consents were signed at that time. On the morning of surgery, the patient was given further opportunity for questions and discussion of the surgery. Procedure: Patient was brought to the operating theater, and after undergoing adequate general anesthesia, per LMA, ASA 3, the patient's left upper extremity was prepped and draped in usual fashion utilizing DuraPrep.? A supplemental block was placed per anesthesia.? The patient had a tourniquet placed high on the arm prior to prepping and draping.? Following prepping and draping, the arm was exsanguinated and the tourniquet was elevated.? Total tourniquet time was 49 minutes at 250 mmHg.? Prior to commencement of the surgical procedure, a surgical pause was performed.? At the time of the surgical pause, we confirmed the site and side of surgery as well as the patient's identity and preoperative surgical markings.? We also confirmed availability of equipment and appropriate preoperative IV antibiotics which was Ancef 2 g.? Fluoroscopy was also brought into position so that we could visualize the fracture and hardware throughout the surgical procedure.? The fracture was evaluated prior to tourniquet placement. Following elevation of the tourniquet as well as the surgical pause, appropriate plate was chosen. The skin was marked for appropriate incision length and location. An incision was made along the palmaris longus and continued down onto the volar surface of the radius.? Care was taken to avoid injury throughout the surgical procedure to the median nerve as well as to the radial artery.? The flexor carpi radialis was retracted medially.? We were able to essentially elevate the sheath of the flexor carpi radialis, and then I was able to place my finger directly onto the distal radius.? For the most part, the patient did her own dissection at the time of her injury.? Soft tissues were elevated off the distal radius to allow access to the fracture and also to the volar aspect of the distal radial shaft.? Reduction required manipulation, and following manipulation, the fracture was essentially anatomic. Fluoroscopy was used to determine whether or not the reduction was appropriate.? We were able to reduce the fracture nearly anatomically.? We then evaluated the plate and chose the extra short Laura volar distal radius plate.? The plate was attached proximally and distally without difficulty.? A combination of locking and 1 nonlocking screw was utilized to attach the plate.? We had excellent fixation and reduction of the fracture. Fluoroscopy was utilized during the procedure.? Once the plate was fully attached, we had a near anatomic position to the distal radius and the distal radius was out to length.? Being satisfied with position, the area was copiously irrigated. There were no fascial tissues to close, and therefore, we closed the subcutaneous tissues with 3-0 interrupted Monocryl.? Skin was closed in a subcuticular fashion with 4-0 Monocryl.? Patient also had a skin tag on the dorsal surface of the forearm, this was addressed as well. Given the patient's very thin skin, the dressing consisted of Dermabond followed by Telfa, fluffed fluffs, sterile soft roll, a volar splint, and an Agustin wrap. The tourniquet was released after 49 minutes. There were no complications. There were no specimens. The procedure was well tolerated. Plan is the patient will be discharged home. Related Problem List Diagnoses 1. Closed fracture of distal ends of left radius and ulna, initial encounter:
[2025-07-29] MEDS: hyDRALAzine 20 mg/mL INJ 1 mL 10 MG IVP (12:05)
[2025-07-29] MEDS: fentaNYL 50 mcg/mL INJ 2mL IVP (12:35)
--- NOTE | 2025-07-29 13:10 | SUR.PHASEII ---
Patient reports that her left arm is numb and cannot move fingers on that hand but her wrist hurts. Dr. Green spoke to patient about this. She states she will take her home dose of methadone when she gets home and feels comfortable to go home. Her daughters are in the room for this conversation and are agreeable as well.
--- NOTE | 2025-07-29 13:33 | ANE.PACU2 ---
Inpatient post-anesthesia follow up: Airway intact: Yes Vital signs: Temperature 97.8 F Pulse Rate 95 Respiratory Rate 16 Blood Pressure 160/94 Pulse Oximetry 96 Oxygen Delivery Me thod Room Air Oxygen Flow Rate Fraction of Inspir ed Oxygen Hydration adequate: Yes Nausea and vomiting: No Pain level: 1 Mental status: Baseline
--- NOTE | 2025-07-29 14:16 | XR_ITS ---
WS: [id number] XR wrist LT 2V [id number] REASON FOR EXAM: ORIF, OR PIC FINDINGS: Plate and screw fixation of comminuted distal radial metaphyseal fracture extending into the joint space. Surgical appliances are intact and in proper position and alignment. Fracture fragments are in good apposition and align. XR/XR wrist LT 2V [id number] IMPRESSION: Left wrist fracture with internal fixation without abnormality.
== END 2025-07-29 13:33 | disposition home or self-care (01) ==
PROVIDERS: PCP Family Medicine; Visit Provider Specialist
PROC: (CPT 25608; principal; 2025-07-29 10:25)
DX: S52.572A Other intraarticular fracture of lower end of left radius, initial encounter for closed fracture (principal); V48.4XXA Person boarding or alighting a car injured in noncollision transport accident, initial encounter; K21.9 Gastro-esophageal reflux disease without esophagitis; E11.9 Type 2 diabetes mellitus without complications; Z79.84 Long term (current) use of oral hypoglycemic drugs; Z79.891 Long term (current) use of opiate analgesic; Z83.3 Family history of diabetes mellitus
CPT/HCPCS: 25608; 64415; 36416; 73100; 76000; 82962; 93005; C1713; J0131; J0360; J0690; J3010; J3490; J7030

== ENCOUNTER → 2025-08-11 10:53 | Outpatient (BNVA) | payer MEDICARE, SELFPAY | PROVIDERS: PCP Family Medicine; Visit Provider Specialist | DX: Z98.890 Other specified postprocedural states (principal); Z47.89 Encounter for other orthopedic aftercare; S52.592D Other fractures of lower end of left radius, subsequent encounter for closed fracture with routine healing; X58.XXXD Exposure to other specified factors, subsequent encounter | CPT/HCPCS: 73110 ==

== ENCOUNTER 2025-08-11 12:15 | Outpatient (CLI) | payer MEDICARE, SELFPAY | END 2025-08-11 12:16 | disposition home or self-care (01) | LOC: SPT 12:15 | PROVIDERS: PCP Family Medicine; Visit Provider Specialist | DX: Z47.89 Encounter for other orthopedic aftercare (principal); S52.592D Other fractures of lower end of left radius, subsequent encounter for closed fracture with routine healing; X58.XXXD Exposure to other specified factors, subsequent encounter | CPT/HCPCS: 99024; L3982 ==

== ENCOUNTER 2025-08-12 07:24 | Outpatient (CLI) | payer MEDICARE, SELFPAY ==
--- NOTE | 2025-08-12 07:41 | XR_ITS ---
WS: [id number] Left hip, 2 views, AP pelvis, 08/12/2025 Clinical Data: pain Comparison: None. Findings: There is a left femoral neck fracture with impaction. The left femoral head remains in the acetabulum. The right hip shows erosion, narrowing, sclerosis and cyst formation. No right hip fractures are seen. The adjacent pelvis is unremarkable. There is osteoarthritis of the lower lumbar vertebral bodies with a levoscoliosis. The soft tissues are normal. XR/XR hip LT 2-3V wo/w pel* [id number] Impression: 1. Left femoral neck fracture. 2. Severe osteoarthritis of the right hip.
== END 2025-08-12 07:25 | disposition home or self-care (01) ==
PROVIDERS: PCP Family Medicine; Visit Provider Specialist
DX: S70.02XA Contusion of left hip, initial encounter (principal); X58.XXXA Exposure to other specified factors, initial encounter; M16.11 Unilateral primary osteoarthritis, right hip
CPT/HCPCS: 73502

== ENCOUNTER 2025-08-19 15:46 | Inpatient (IN) | payer MEDICARE, SELFPAY ==
--- OUTSIDE RECORDS SUMMARY | 2024-06-15 03:00 | XMS_ITS ---
Author Organization [facility] Address [address] [place] [address] Support Name Relationship Address , Niki Rodgers Emergency Contact Unknown Unavailable Cheyenne Hall Guarantor Unknown Unavailable Care Team Providers Care Particleboard Factory Worker Name Role Phone Ralph Merino Primary Care Provider Unavailabl e Migration, Provider Unavailable Unavailable REASON FOR VISIT EMR-Hira Encounters Encounter Location Date Provider Diagnosis Migrated_Facility 0 0 06/15/2024 Provider Migration Plan Of Treatment No Information Progress Notes * RAFAELAustenha PDOB:[birth year] (85 yo F)Acc No.[id number]:06/15/2024 Patient: Cheyenne JOHN Jalen :1940 A ge:83 Y S ex:Female Phone: Address:[facility] [address] [facility], [place], [address] Subjective: * Chief Complaints: * E MR-Hira * * Date:
--- OUTSIDE RECORDS SUMMARY | 2024-06-16 03:00 | XMS_ITS ---
Author Organization [facility] Address [address] [place] [address] Support Name Relationship Address , Niki Rodgers Emergency Contact Unknown Unavailable Cheyenne Zuleta Guarantor Unknown Unavailable Care Team Providers Care Lock Installer Name Role Phone Lupisaly Ralph Primary Care [...] Cheyenne ZULETA PDOB:[birth year] (85 yo F)Acc No.[id number]:06/16/2024 Patient: Cheyenne JOHN :1940 A ge:83 Y S ex:Female Phone: Address:[facility] [address] [facility], [place], [address] Subjective: * Chief Complaints: * E MR-Hira * Medical History: Arthritis, D iabetes, G [...]
[2025-08-19] VITALS (19 sets, daily range): BP systolic 109–195; BP diastolic 53–117; PULSE 83–132; RESP 14–18; TEMP 36.3–36.6; O2SAT 93–100; BMI 21.1
[2025-08-19] MEDS: fentaNYL 50 mcg/mL INJ 2mL IVP (13:13)
[2025-08-19] MEDS: acetaminophen 1,000 MG/100 ML PIGGYBACK 400 MG IV ×2 (13:15→20:56)
[2025-08-19 13:17] LABS: Hematocrit 39.2 % (36-47); Hemoglobin 12.50 g/dL (11.27-16.99); Mean Corpuscular HGB Conc 31.9 g/dL (30-55); Mean Corpuscular Hemoglobin 26.0 pg (27-33); Mean Corpuscular Volume 81.7 fl (85-98); Nucleated Red Blood Cells % 0 %; Platelet Count 345 10^3/cmm (157-399); Red Blood Count 4.80 10^6/uL (3.85-5.65); White Blood Count 10.24 10^3/uL (3.29-11.43)
[2025-08-19 13:41] LABS: Alanine Aminotransferase 8 U/L (0-33); Albumin Level 4.0 g/dL (3.5-5.2); Alkaline Phosphatase 99 U/L (35-105); Anion Gap 19.3 (5-19); Aspartate Amino Transferase 16 U/L (0-32); Blood Urea Nitrogen 13 mg/dL (8-23); Calcium 10.2 mg/dL (8.5-10.5); Carbon Dioxide 26 mmol/L (22-29); Chloride 93 mmol/L (98-107); Creatinine Clr Calc Pharmacy 43.1235; Globulin 2.8 g/dL (1.3-4.6); Glucose 137 mg/dL (65-115); Osmolality Calculated 280 mOsm/kg (285-295); Potassium 4.3 mmol/L (3.5-5.1); Sodium 134 mmol/L (136-145); Total Protein 6.8 g/dL (6.6-8.7)
--- NOTE | 2025-08-19 14:43 | P.HPUD_ITS ---
Surgery/Procedure H&P Update DATE OF PROCEDURE: August 19, 2025 DATE H&P PERFORMED: 08/19/25 H&P UPDATE INFORMATION: I have reviewed H&P completed within last 30 days, I have examined patient prior to procedure, No changes to prior documentation, H&P is in [facility] EMR on date indicated and Risks and benefits of the procedure reviewed CHANGES TO PREVIOUS DOCUMENTATION: Patient was seen and will be admitted to the hospitalist team secondary to her age and significant surgery PLANNED PROCEDURE: Operation Date: 08/19/25 14:00 Proposed Procedures p Bipolar Total Hip Arthroplasty(Left) - Yenifer Jorgensen MD Related Problem List Diagnoses 1. Subcapital fracture of left hip:
[2025-08-19] MEDS: ceFAZolin 2,000 MG in sodium chloride 0.9% (plus) 100 ML 200 MG IV (15:30)
[2025-08-19] MEDS: tranexamic acid 1,000 MG/100 ML PREMIX 600 MG IV (15:30)
[2025-08-19] MEDS: ceFAZolin 1,000 mg SDV 1000 MG IRRIGATION (15:44)
[2025-08-19] MEDS: BUPivacaine liposome 13.3 mg/mL SDV 20 mL 266 MG INFILTRATI (15:45)
[2025-08-19] MEDS: BUPivacaine 0.5% INJ 30 mL 20 ML XX (15:45)
[2025-08-19 15:51] LABS: Glucose Urine UA Negative (Normal); Nitrate Urine Negative (Negative); Specific Gravity, Urine 1.006 (1.005-1.030)
[2025-08-19 15:57] LABS: Add Urine Microscopic? YES
--- NOTE | 2025-08-19 16:00 | P.HP_ITS ---
<Statement entered by Chong Nance MD - 08/20/25 20:22> Patient case discussed with ED provider and reviewed and discussed with ALBERT including E&M. Providers/Chief Complaint 2 Admitting Physician: Elissa Bradley APRN, Yenifer Jorgensen MD Primary Care Provider: Cheko Palacios DO Chief Complaint: Bipolar total hip arthoplasty History of Present Illness Cheyenne Hall is a 85 year old female with prior medical history of DM, GERD, bursitis, long-term steroid use, colic, anxiety, cholecystectomy 04/2024, fall, and lumbar stenosis presenting with complaints of hip pain.? On 07/26/2025 patient had a mechanical fall injuring her head, right leg, left wrist, and left knee.? She was seen at this ED where she had x-ray of her knee and wrist.? Knee imaging was negative.? Wrist x-ray revealed closed distal radius fracture, and she underwent open reduction internal fixation (07/29/25). ?Patient had continued complaints about her left side especially when attempting to ambulate.? She had scheduled follow-up on 08/11/2025 where additional imaging to her left hip that revealed a displaced subcapital left hip fracture.? Today, patient returned to [facility] for scheduled bipolar hip arthroplasty. In the ED, BP 166/88, HR 99, RR 16, T97.7, O2 97% on room air.? WBC 10.24, Hgb 12.5, PLT 345.? NA 134, chloride 93.? Glucose 137.? CMP otherwise unremarkable.? Urinalysis negative. Will admit to the hospitalist service for further evaluation and treatment. Orthopedic surgery following, Dr. Jorgensen, recommendations appreciated. Review of Systems 2 Const: Denies: fever(s) or chills Card: Denies: chest pain or dyspnea on exertion Resp: Denies: dyspnea, productive cough or wheezing GI: Denies: abdominal pain, nausea or vomiting : Denies: difficulty voiding Musc: Reports: joint pain, joint swelling and limited range of motion Skin/Breast: Denies: changes in skin color or dry skin Neuro: Denies: numbness in extremities or weakness in extremities Psych: Denies: anxiety Tyler/Lymph: Denies: easy bruising or easy bleeding Medications/Allergies Home Medications ?Medication ?Instructions ?Recorded ?Confirmed ?Last Taken ?Type epinephrine 0.3 mg/0.3 mL 0.3 mg (0.3 mL) IM Q10M PRN 11/17/22 08/18/25 08/18/25 04:30 Rx injection, auto-injector (EpiPen anaphylaxis #2 ea 2-Jaret) diclofenac sodium 1 % topical gel 2 - 4 g topical QID PRN Pain 08/02/23 08/18/25 08/18/25 04:30 History (Aspercreme Arthritis Pain) prednisone 10 mg tablet 10 - 20 mg (1 - 2 x 10 mg) P O QAM 02/13/25 08/18/25 08/18/25 07:00 Rx arthritis #180 tabs alprazolam 0.25 mg tablet (Xanax) 0.25 mg PO TID PRN a nxiety #90 tabs 04/11/25 08/18/25 08/18/25 04:30 Rx ondansetron HCl 4 mg tablet 4 mg PO Q8H PRN nausea and 05/01/25 08/18/25 08/18/25 04:30 Rx vomiting #30 tabs losartan 50 mg tablet 50 mg PO QAM bp #90 tabs 08/1408/18/25 08/18/25 04:30 Rx metformin 500 mg tablet 500 mg PO BID sugars #180 ta bs 07/02/25 08/18/25 08/18/25 04:30 Rx pantoprazole 40 mg tablet,delayed 40 mg PO DAILY 07/2808/18/25 08/18/25 04:30 History release Fast Form, Left #1 ea 08/11/25 08/11/25 Unkn own Rx methadone 5 mg tablet 7.5 mg (1.5 x 5 mg) PO Q8H c hronic 08/12/25 08/18/25 08/18/25 04:30 Rx pain, arthritis 30 days #135 tabs meloxicam 15 mg tablet 15 mg PO DAILY 08/18/2507/2208/18/25 04:30 History nystatin 100,000 unit/gram topical 1 applic topical BI D tinea #30 08/18/25 Unknown Rx cream grams Allergies Allergy/AdvReac Type Severity Reaction Status Date / Time hydrocodone Allergy ALGY-Anaphy Verified 08/18/25 10:57 laxis Sulfa (Sulfonamide Allergy ALGY-Hives Verified 08/18/25 10:57 Antibiotics) PFSH Acute 2 PFSH: Medical History Lumbar stenosis with neurogenic claudication GERD (gastroesophageal reflux disease) Surgical History History of back surgery Family History Mother Diabetes Lung cancer Social History Smoking and tobacco/nicotine status: never used tobacco/nicotine Quit status (tobacco/nicotine): not considering quitting Second hand smoke exposure: No Alcohol intake: never Substance/Drug Use: never Vitals/I&O/Wt Last Vital Signs Temp 97.7 F 08/19/25 12:30 Pulse 99 08/19/25 14:15 Resp 16 08/19/25 14:15 BP 166/88 08/19/25 14:15 Pulse Ox 97 08/19/25 14:15 O2 Del Method Room Air 08/19/25 14:15 08/19/25 08/19/25 08/19/25 06:59 14:59 22:59 Intake Total 100 / 100 200 / 300 Balance 100 / 100 200 / 300 Weight last 48 hrs Weight 55.792 kg Physical Exam 2 Const: COMMON NORMALS: no acute distress, patient oriented x3, healthy appearing and alert EXAM LIMITATIONS: altered mental status GENERAL APPEARANCE: cooperative, comfortable and well developed O RIENTATION/CONSCIOUSNESS: Yes awake, Yes oriented to person, Yes oriented to place and Yes oriented to time HENMT: COMMON NORMALS: normocephalic Eye: COMMON NORMALS: Equal, round and reactive pupils present PUPIL: Yes Equal, round and reactive pupils present Neck/C-Spine: COMMON NORMALS: no lymphadenopathy Chest: COMMONS NORMALS: normal inspection of the chest Resp: COMMON NORMALS: normal respiratory effort, No retractions and No use of accessory muscles EFFORT & INSPECTION: Yes able to speak in complete sentences Cardio: COMMON NORMALS: regular rate and regular rhythm GI: COMMON NORMALS: Normal to inspection, nondistended, normoactive bowel sounds present INSPECTION: Yes normal to inspection Extremity: COMMON NORMALS: negative for normal to inspection and negative for full ROM Neuro: COMMON NORMALS: patient oriented x3; negative for moves all extremities Psych: COMMON NORMALS: mental status grossly normal, cooperative, normal affect, speech normal and activity/motor behavior normal ATTITUDE: Yes calm, Yes engaged and Yes uncooperative ACTIVITY/MOTOR BEHAVIOR: Yes appropriate eye contact SPEECH: Yes normal speech THOUGHT PROCESS: Normal thought process present THOUGHT CONTENT: Yes Normal thought content present A TTENTION/CONCENTRATION: Yes attention grossly intact MEMORY/COGNITION: Yes memory grossly intact JUDGEMENT: Good judgement present (Psych) Skin: GENERAL SKIN EXAM: no rashes or lesions noted Urinary Catheter Management: Kurtz: Cath Placed During This Visit: no Data 08/19/25 12:55 08/19/25 12:55 A&P Assessment and plan 1. Closed subcapital fracture of left femur, initial encounter: Secondary to fall Surgery consulted, Dr. Lunsford, recommendations appreciated Hip surgery planning Pain management 2. Contusion of left hip: Pain management as above 3. Diabetes: On home metformin, hold Sliding scale Glucose 137 A1c 4. Hypertension: BP 166/88, HR 99 Continue home losartan BP monitoring 5. Arthritis: Patient pain is managed at home with methadone 6. GERD (gastroesophageal reflux disease): On home pantoprazole, hold Protonix PDMP PDMP Reviewed: Not Reviewed Attestations 2 Medical Necessity Statement*: Patient not expected to stay 2 midnights. Plan is for her to have surgery today and stay 1 night for postop observation. Plan is for patient to discharge tomorrow. Diagnoses Closed subcapital fracture of left femur, initial encounter S72.012A Encounter type: initial encounter Fracture type: closed Contusion of left hip S70.02XA Diabetes E11.9 Hypertension I10 Arthritis M19.90 GERD (gastroesophageal reflux disease) K21.9
--- NOTE | 2025-08-19 17:07 | XRR_ITS ---
PROCEDURE INFORMATION: Exam: XR Pelvis Exam date and time: 08/19/2025 5:11 PM Age: 85 years old Clinical indication: Device placement; Other: Lt total hip; Prior surgery; Surgery date: Post-operative (0-2 days); Additional info: Status post bipolar hip arthroplasty, low ap pelvis TECHNIQUE: Imaging protocol: Radiologic exam of the pelvis. Views: 1 or 2 view. COMPARISON: CR XR hip LT 2-3V wo/w pel* [id number] 08/12/2025 7:54 AM FINDINGS: Bones/joints: Status post hip arthroplasty in anatomic alignment. No fracture. Soft tissue swelling and gas consistent with recent surgery. Chronic flattening of the right femoral head with sclerosis. Soft tissues: See Bones/joints finding. XR/XR pelvis 1-2V* [id number] IMPRESSION: Left hip prosthesis.
--- NOTE | 2025-08-19 17:14 | PM.OP ---
Operative Report Date of procedure: August 19, 2025 Pre-op diagnosis: Subacute left subcapital hip fracture Post-op diagnosis: Subacute left subcapital hip fracture Post-op findings: Nonunion and collapse left femoral head Procedure done: Left bipolar hip arthroplasty with takedown of nonunion Implants: The Laura hip system with a size 50 mm universal head bipolar component with a 28 mm inner diameter.? A size 4 Insignia high offset neck angle hip stem with a size 28 mm x -2.7 mm femoral head Specimens removed/disposition: Femoral head, disposed of Pathology: None Surgeon: Yenifer Jorgensen MD [employer] Systems Engineer: Melania Garay, nurse practitioner, whose services were required for positioning, exposure, retraction, closure, and completion of the surgical procedure. Anesthesia: General (Intubated, ASA 3) Estimated blood loss (mL): 30 IV fluids (mL): 1,200 Urine output (mL): 800 Complications: None Findings: There was obvious fracture and nonunion with deformity of the femoral head and neck. Following placement of the bipolar hip arthroplasty, the patient was stable at 90 degrees of flexion with 70 degrees of internal rotation and 20 degrees of adduction. It was also stable to external rotation. Leg lengths appeared to be restored. Condition: stable Disposition: PACU (Then to floor for postoperative rehabilitation and pain management) Brief History: This 85-year-old woman was seen earlier this month in the emergency department after a fall onto her left side. At the time of her fall, she suffered a left distal radius fracture and was taken to surgery for this. Patient at the time of presentation to the emergency department also complained of left knee pain, and imaging studies for this, which included left knee imaging, were negative. Patient was seen in follow-up for her postoperative wrist fracture evaluation, and the family stated that she was having difficulty ambulating and she was now complaining of left hip pain. She states while in the emergency department, she did not complain of left hip pain. X-rays were ordered, and the patient was found to have a subcapital displaced left hip fracture. Secondary to the holidays and the fact that the patient had been home functioning with this fracture, plans were made for admission today for bipolar hip arthroplasty. Family was in agreement with this. Consents were signed and questions were answered. Procedure: The patient was brought to the operating theater.? She was transferred to the operating room table and subsequently administered a general anesthesia, intubated, ASA 3. This was well-tolerated.? Following administration of adequate anesthesia, the patient was placed in full lateral position and held in position with a pegboard.? The patient's left lower extremity was then prepped and draped in usual fashion utilizing DuraPrep.? It was draped free.? Following prepping and draping, a surgical pause was performed.? At the time of surgical pause, we identified the site and side of surgery.? We also identified the patient and preoperative surgical markings.?The patient's operative leg was compared to the opposite leg as a length comparison.? Confirmation was made of equipment availability.? Additionally, the patient's preoperative IV antibiotic, Ancef 2 g, and TXA administration was confirmed as well. Following the surgical pause, an incision was made centering over the patient's greater trochanter continuing proximally and distally as necessary to allow access to the hip joint.? Dissection continued through skin and soft tissues using a scalpel, and hemostasis was obtained using electrocautery. The tensor fascia debbie was identified and incised longitudinally.? Sciatic nerve was identified and protected throughout the surgical procedure.? A Charnley U retractor was placed after the tensor fascia debbie had been incised longitudinally, and the sciatic nerve had been identified. Upon evaluation of the capsule, there was some flaring of the capsule from the patient's fracture. The piriformis muscle was identified and tagged. Piriformis muscle along with the remaining short external rotators were then incised from the posterior aspect of the hip joint.? These were retracted posteriorly.? The capsule was entered in a T-type fashion with the edges being tagged, and subsequently, the hip was internally rotated. At this point, there was obvious separation of the femoral head from the femoral neck. There was also deformity of the femoral head and of the femoral neck. The neck was placed in position for an osteotomy to allow placement of the femoral stem. Following this osteotomy, we were able to retract the neck anteriorly so that we could remove the femoral head from the acetabulum. There was noted to be significant comminution at the fracture site. The femoral head was removed and measured uneventfully. The labrum was identified after the capsule was entered in a T-type fashion, and this was removed. Further evaluation of the acetabulum demonstrated relatively good preservation of cartilage. Once we could expose the acetabulum, trials were placed into the acetabulum to determine the best size for stability. The [place] head bipolar component size 50 mm gave excellent fit and stability upon evaluation. Therefore, this was the chosen head for the bipolar construct. Attention was directed to the proximal femur.? The proximal femur was lifted out of the wound.? A canal finder was passed after the box chisel.? The reamer was used to lateralize.? We then began broaching. We broached sequentially to a size 4 Insignia broach. Trial was accomplished with a +0 mm offset femoral head. With this construct, it was felt that the hip was too tight and that we had over lengthened, therefore, a trial was accomplished with a -2.7 mm femoral head. In actuality, available femoral head was a -3, and trial reduction was accomplished with this with plans to place to -2.7. With a -3 mm femoral head trial in place, the hip was reduced. The hip was placed through range of motion, mobility as noted above. It was felt that leg lengths were restored. Therefore, trial components were removed after the hip was dislocated. The size 4 Insignia high offset neck angle hip stem was impacted into position without difficulty and onto this was placed the construct of the 50 mm universal head bipolar component with a 28 mm inner diameter and a femoral head that was -2.7 mm. This was impacted onto the stem. It was pulled up on to assure it was stable. Irrigation was accomplished of the acetabulum, and the hip was reduced. We continued to have the above stabilities noted and apparent orthodox of leg length. The stem was noted to seat nicely prior to placement of the femoral head.? The wound was copiously irrigated with 20 mL of Betadine and 500 mL of normal saline mixed together.? Subsequently, we suctioned this out and irrigated the wound copiously with lactated Ringer's.? At this time, with all components in appropriate position, the hip was reduced.? Following reduction of the prosthesis once again, we confirmed the stability of the hip.? Leg lengths were also felt to be satisfactory. Exparel was injected. Being satisfied with the prosthesis, attention was directed to closure.? Closure was accomplished with 0 Vicryl in the capsular tissues.? Piriformis was reattached with 0 Vicryl as well.? Tensor fascia debbie was closed with 0 Vicryl in an interrupted fashion.? The subcutaneous tissues were closed with 2-0 Monocryl STRATAFIX.? Vancomycin powder and a Gelfoam thrombin mixture was placed into the wound as well.? The skin was closed with a running 3-0 Monocryl strata fix followed by Dermabond Prineo and OpSite. The patient was placed in an abduction pillow. Patient was transferred off the operative bed and was brought to the recovery room in a satisfactory condition. Related Problem List Diagnoses 1. Closed subcapital fracture of left femur, initial encounter:
--- NOTE | 2025-08-19 17:35 | ANE.PACU2 ---
Inpatient post-anesthesia follow up: Airway intact: Yes Vital signs: Temperature 98.2 F Pulse Rate 100 Respiratory Rate 16 Blood Pressure 149/80 Pulse Oximetry 94 Oxygen Delivery Me thod Room Air Oxygen Flow Rate Fraction of Inspir ed Oxygen Hydration adequate: Yes Nausea and vomiting: No Pain level: 1 Mental status: Baseline
[2025-08-19] MEDS: ceFAZolin 2,000 mg SDV 2000 MG IVP (23:11)
[2025-08-19] MEDS: chlorhexidine gluconate 0.12% Btl 473 mL 30 ML MUCOUS MEM (23:12)
[2025-08-20 03:46] LABS: Hematocrit 35.8 % (36-47); Hemoglobin 11.50 g/dL (11.27-16.99); Mean Corpuscular HGB Conc 32.1 g/dL (30-55); Mean Corpuscular Hemoglobin 25.6 pg (27-33); Mean Corpuscular Volume 79.6 fl (85-98); Nucleated Red Blood Cells % 0 %; Platelet Count 294 10^3/cmm (157-399); Red Blood Count 4.50 10^6/uL (3.85-5.65); White Blood Count 8.30 10^3/uL (3.29-11.43)
[2025-08-20] MEDS: sennosides-docusate Tablet 2 TAB PO (04:14)
[2025-08-20 04:16] VITALS: BP 160/79
[2025-08-20] MEDS: chlorhexidine gluconate 0.12% Btl 473 mL 30 ML MUCOUS MEM ×2 (04:18→12:35)
[2025-08-20] MEDS: acetaminophen 1,000 MG/100 ML PIGGYBACK 400 MG IV ×2 (04:18→12:28)
[2025-08-20] MEDS: multivitamin therapeutic Tablet 1 TAB PO (04:19)
[2025-08-20] MEDS: mupirocin oint 22 gm 1 APPLIC NASAL (04:29)
[2025-08-20 04:39] VITALS: BP 168/82; PULSE 98; RESP 16; TEMP 36.7; O2SAT 97
[2025-08-20] MEDS: ceFAZolin 2,000 mg SDV 2000 MG IVP (06:30)
--- NOTE | 2025-08-20 08:07 | PC.NURSE ---
08/19/20252199---MD was notified that pt was experiencing constant post surgical pain on the left hip. New medication order received. Pt aware that there was prn pain medication, but pt denied the need for the pain medication at this time.
[2025-08-20 08:18] VITALS: BP 149/80; PULSE 100; RESP 16; TEMP 36.8; O2SAT 94
--- OUTSIDE RECORDS SUMMARY | 2025-08-20 08:50 | XMS_ITS | Clinical Summary ---
Author Organization [facility] Address [address] [place] [address] Care Team Providers Care Production Graphic Designer Name Role Phone Shannon Regan MD, Orlando Newman Primary Care Provider [phone] Allergies Active Allergy Reactions Criticality Noted Date [...] Active lancets 30 gauge 1 Lancet by [facility].(Non-Drug; Combo Route) route daily. 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 Gender Identity Not on file Sexual Orientation [...] Comments HEMOGLOBIN A1C Routine 10/08/2020 9:17 AM INSURANCE SALES REPRESENTATIVE Type 2 diabetes mellitus without complication, without long-term current use of insulin ([facility]) MICROALBUMIN/CREATIN INE RATIO, RANDOM UR Routine 03/16/2020 9:50 AM CDT Type 2 diabetes mellitus without complication, without long-term current use of insulin ([facility]) LIPID PANEL Routine 03/16/2020 9:36 AM CDT Type 2 diabetes mellitus without complication, without long-term current use of insulin ([facility]) from Last 3 Months or Most Recently Relevant to Health Maintenance Results * (ABNORMAL) HEMOGLOBIN A1C (10/08/2020 9:17 AM INSURANCE SALES REPRESENTATIVE) HEMOGLOBIN A1C 6.9(H) See Comment % 10/08/2020 4:33 PM INSURANCE SALES REPRESENTATIVE [facility] EST. AVG GLUCOSE, A1C 151 mg/dL 10/08/2020 4:33 PM INSURANCE SALES REPRESENTATIVE [facility] Blood Venipuncture / Unknown 10/08/2020 9:17 AM INSURANCE SALES REPRESENTATIVE 10/08/2020 9:17 AM INSURANCE SALES REPRESENTATIVE Narrative [facility] - 10/08/2020 4:33 PM INSURANCE SALES REPRESENTATIVE HGB A1C INTERPRETATION NORMAL: <5.7% PRE-DIABETES: 5.7 - 6.4% DIABETES: 6.5% OR GREATER Falsely low A1C measurements can occur when: 1. Anemia and/or hemolytic anemia is present. 2. Hemoglobin variants present. 3. Renal failure. 4. Transfusion of blood product in the last 120 days. We recommend ordering a fructosamine test([id number]) to more accurately assess glycemic status if any of the above conditions are present. us Belinda Tiwari [facility] CHEMISTRY ORDERABLES Final Resu lt [facility] CLIA# [id number] [address] [place] [address] * MICROALBUMIN/CREATININE RATIO, RANDOM UR (03/16/2020 9:50 AM CDT) MICROALBUMIN, URINE <1.2 No Reference Range mg/dL 03/16/2020 7:06 PM CDT [facility] CREATININE, URINE 32.2 29.0 - 226.0 mg/dL 03/16/2020 7:06 PM T [facility] Comment:Reference Range vari es with fluid intake and diet. Urine URINE SPECIMEN OBTAINED BY CLEAN CATCH PROCEDURE / Unknown Collection / Unknown 03/16/2020 9:50 AM CDT 03/16/2020 9:50 AM CDT [facility] [place] - 03/16/2020 7:06 PM CDT Condition Microalbumin/Creat ratio Normal Males <17 Normal Females <25 Microalbuminuria Males 17-299 Microalbuminuria Females 25-299 Overt proteinuria >=300 Unable to calculate urine microalbumin/creatinine ratio because urine microalbumin result is outside of reportable range. us Orlando Ortega Jr., MD URINE ORDERABLES Final Res ult [facility]# [id number] [address] [place] [address] * (ABNORMAL) LIPID PANEL (03/16/2020 9:36 AM CDT) CHOLESTEROL 141 <200 mg/dL 03/16/2020 10:21 AM CDT [facility] TRIGLYCERIDE 176(H) <150 mg/dL 03/16/2020 10:21 AM CDT [facility] HDL 44 40 - 59 mg/dL 03/16/2020 10:21 AM T [facility] LDL CALCULATED 62 <100 mg/dL 03/16/2020 10:21 AM CDT [facility] NON-HDL CHOLESTEROL 97 <130 mg/dL 03/16/2020 10:21 AM T [facility] Blood Venipuncture / Unknown 03/16/2020 9:36 AM CDT 03/16/2020 9:36 AM CDT Narrative [facility] - 03/16/2020 10:21 [...] Ortega Jr., MD CHEMISTRY ORDERABLES Final Result [facility] CLIA# [id number] [address] [place] [address] from Last 3 Months or Most Recently Relevant to Health Maintenance Insurance MEDICARE PART A AND B [facility] Advance Directives For more information, please contact: [phone] Documents on File Type Date Recorded Patient Trauma Program Manager Expl anation Advance Directive POA 11/30/2016 3:02 PM A dvance Directive POA Advance Directive Living Will 11/30/2016 3:00 PM Advance Directive Living Will * Full Code (Latest Code Status on File) Date Activated Date Inactivated Comments 12/06/2016 2:38 PM 12/06/2016 6:28 PM Care Teams Production Graphic Designer Relationship Specialty Start Date End Date Orlando Ortega Jr., MD PCP - General Family Practice 10/20/17
--- OUTSIDE RECORDS SUMMARY | 2025-08-20 08:51 | XMS_ITS | Encounter Summary ---
Author Organization [facility] Address [address] [place] [address] Care Team Providers Care Aviation Electronic Warfare Operator Name Role Phone Unavailable Primary Care Provider Unavailabl e Encounter Details Date Type Department Care Team (Late st Contact Info) Description 08/12/2025 External Device Data [facility] ABSTRACTION Provider, Abstract [...] on file Legal Sex Female 6:[address] REPORTER Gender Identity Not on file Sexual Orientation Not on file documented as of this encounter Plan of Treatment Not on file documented as of this encounter Visit Diagnoses Not on filedocumented in this encounter
--- OUTSIDE RECORDS SUMMARY | 2025-08-20 08:51 | XMS_ITS | Patient Health Record ---
Author Organization [facility] Address [address] [place] [address] Support Name Relationship Address , Niki Rodgers Emergency Contact Unknown Unavailable Cheyenne Hall Guarantor Unknown Unavailable Care Team Providers Care Cra Officer Name Role Phone Ralph Merino Primary Care [...] Date Status Meloxicam *Pick strength-f orm from [facility] for eRX* Active Plan Of Treatment No Information Insurance Providers Payer Name Payer Address Payer Phone Subscriber Number Group Number Insured Name Patient Relationship to Insured Coverage Start Date Coverage End Date AARP Medicare Supplement [address] [facility] [place] [phone] [id number] Cheyenne Hall Self - patient is the insured
--- OUTSIDE RECORDS SUMMARY | 2025-08-20 08:51 | XMS_ITS | Encounter Summary ---
Author Organization [facility] Address [address] [place] [address] Care Team Providers Care Supervisor Drapery Hanging Name Role Phone Shannon Regan MD, Orlando Newman Primary Care Provider [phone]- [phone] Encounter Details Date Type Department Care Team (Latest Contact Info) Description 11/24/2000 Outpatient Historical [facility] [address] [facility] [address] [place] [address] Amos Alex MD NO ADDRESS ON FILE Other screening mammogram (Primary Dx) Social History Tobacco Use Types Packs/Day Years Used Date Smoking Tobacco: Never Assessed Comments Unknown Sex and Gender Information Value Date Recorded Sex Assigned at Not on file 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
--- OUTSIDE RECORDS SUMMARY | 2025-08-20 08:51 | XMS_ITS | Encounter Summary ---
Author Organization [facility] Address [address] [place] [address] Care Team Providers Care Mold Builder Name Role Phone Shannon Regan MD, Orlando Newman Primary Care Provider [phone]- [phone] Reason for Referral * Radiology Services (Routine) - Closed Specialty Diagnoses / Procedures Referred By Meghna kim Referred To Contact Radiology Diagnoses RUQ pain Procedures NM HEPATOBILIARY SCAN NM HEPATOBIL W PHARM INTERV Orlando Ortega Jr., MD [address] [place] [address] [address] [place] [address] Phone: tel: fax: [facility] Nuclear Medicine [address] [place] [address] Phone: tel: fax: Referral ID Status Reason Start Date Expiration Date V isits Requested Visits Authorized [id number] Closed SGF MC TO SCHEDULE (SGF) 07/19/2019 08/18/2020 1 1 POLISHER Encounter Details Date Type Department Care Team (Late st Contact Info) Description 08/19/2019 Ancillary Orders [facility] [address] [place] [address] [address] [place] [address] Orlando Ortega Jr., MD [address] [place], [place] [address] [address] [place] [address] RUQ pain Social History Tobacco Use Types Packs/Day Years Used Date Smoking Tobacco: Never Smokeless Tobacco: Never Alcohol Use Standard Drinks/Week Comments Yes 1 (1 standard drink = 0.6 oz pur e alcohol) Comments No Sex and Gender Information Value Date Recorded Sex Assigned at Not on file Legal Sex Female 6:47 AM AUTO POLISHER Gender Identity Not on file Sexual Orientation Not on file documented as of this encounter Plan of Treatment Not on file documented as of this encounter Results * NM HEPATOBILIARY SCAN (08/19/2019 10:04 AM AUTO POLISHER) Anatomical Region Laterality Modality Abdomen Nuclear Medicine 08/19/2019 10:0 4 AM AUTO POLISHER Impressions 08/19/2019 12:21 PM AUTO POLISHER IMPRESSION: Abnormal examination 1. No evidence of acute or chronic gallbladder disease. 2. 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 3. Normal hepatocyte function and patency of the common bile duct are also demonstrated. Narrative 08/19/2019 12:21 PM AUTO POLISHER Radionuclide Hepatobiliary Imaging with physiologic Stimulation and [...] quadrant documented in this encounter Care Teams Mold Builder Relationship Specialty Start Date End Date Orlando Ortega Jr., MD PCP - General Family Practice 10/20/17 documented as of this encounter
--- OUTSIDE RECORDS SUMMARY | 2025-08-20 08:51 | XMS_ITS | Encounter Summary ---
Author Organization [facility] Address [address] [facility] Attn: Epic Prelude ADT [place] [address] Care Team Providers Care Multi Craft Maintenance Technician Name Role Phone Shannon Regan MD, Orlando Newman Primary Care Provider [phone]- [phone] Encounter Details Date Type Department Care Team (Late st Contact Info) Description 11/22/2001 Outpatient Historical Jose Clifton MD NO ADDRESS ON FILE Social History Tobacco Use Types Packs/Day Years Used Date Smoking Tobacco: Never Assessed Comments Unknown Sex and Gender Information Value Date Recorded Sex Assigned at Not on file 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
--- OUTSIDE RECORDS SUMMARY | 2025-08-20 08:51 | XMS_ITS | Clinical Summary ---
Author Organization [facility] Address [address] [place] [address] Care Team Providers Care Clinical Applications Manager Name Role Phone Unavailable Primary Care Provider [...] Encounters Date Type Department Care Team Description 08/12/2025 External Device Data STL ABSTRACTION Provider, Abstract 07/22/2025 External Device Data STL ABSTRACTION Provider, [...] on file Legal Sex Female 6:16 AM RADIO RECORDER Gender Identity Not on file Sexual Orientation Not on file Last Filed Vital Signs Vital Sign Reading Time Taken Comments Blood Pressure 157/92 08/08/2024 9:09 AM RADIO RECORDER Pulse 78 07/25/2024 8:59 AM RADIO RECORDER Temperature 36.8 C (98.2 F) 08/08/2024 9:09 AM RADIO RECORDER Respiratory Rate 16 08/08/2024 9:09 AM RADIO RECORDER Oxygen Saturation 100% 08/08/2024 9:09 AM RADIO RECORDER Inhaled Oxygen Concentration - - Weight 52.2 kg (115 lb) 08/08/2024 6:58 AM RADIO RECORDER Height 157.5 cm (5' 2 ) 08/08/2024 6:58 AM RADIO RECORDER Body Mass Index 21.03 08/08/2024 6:58 AM RADIO RECORDER Plan of Treatment Health Maintenance Due Date [...] , 11/22/2017 Medical Devices Implanted Type Area Head Of Precision Targeting Device Identifier Shelf Expiration Date Model / Serial / Lot Stent Istent Trbclr Micro-Bypass Sys Is3 - [id number] Implanted:Qty: 1 on 08/08/2024 by Silvino Nichols MD at [facility] Left: Eye [employer] 03/20/2026 IS3 / [id number] / Lens Iol [employer]ec[employer] 24.0 [id number] - [id number] Implanted:Qty: 1 on 07/25/2024 by Silvino Nichols MD at [facility] Right: Eye [employer] 04/17/2027 [id number] / [id number] / N/A Lens Iol [employer]nis [employer] 24.5 [id number] - [id number] Implanted:Qty: 1 on 08/08/2024 by Silvino Nichols MD at [facility] Left: Eye [employer] [id number] 01/02/2027 [id number] / [id number] / Procedures Procedure Name Priority Date/Time Associated Diagnosis Comments LIPID PANEL Routine 03/08/2021 9:35 AM CDT Hyperlipidemia, mixed HEMOGLOBIN A1C Routine 03/08/2021 9:35 AM CDT Controlled type 2 diabetes mellitus without complication, without long-term current use of insulin ([facility]) MICROALBUMIN/CREATIN INE RATIO, RANDOM UR Routine 03/16/2020 9:50 AM CDT from Last 3 Months or Most Recently Relevant to Health Maintenance Results * (ABNORMAL) HEMOGLOBIN A1C (03/08/2021 9:35 AM CDT) HEMOGLOBIN A1C 6.7(H) <5.7 % of total Hgb [facility] Comment: For someone without known diabetes, a [...] children. FASTING:NO FASTING: NO Test Performed at: [email or web address] [place] [address] [place] [address] John Tenorio D.O., MPH Blood 03/08/2021 9:35 AM CDT 03/08/2021 9:36 AM CDT us Orlando Ortega Jr., MD CHEMISTRY ORDERABLES Final Result [facility] [address] [place] [address] * (ABNORMAL) LIPID PANEL (03/08/2021 9:35 AM CDT) CHOLESTEROL 149 <200 mg/dL [facility] HDL 41(L) > OR = 50 mg/dL [facility] TRIGLYCERIDE 117 <150 mg/dL [facility] LDL CALCULATED 87 mg/dL (calc) [facility] Comment: Reference range: <100 Desirable range <100 mg/dL for primary prevention; <70 mg/dL for patients with CHD or diabetic patients with > or = 2 CHD risk factors. LDL-C is now calculated using the Jose calculation, which is a validated novel method providing better accuracy than the Friedewald equation in the estimation of LDL-C. Marty SIEGEL et al. KARIE. 2013;310(19): 3131-5455 (http://education.Odeeo.[facility]/faq/BFN567) CHOL/HDL RATIO 3.6 <5.0 (calc) [facility] TOTAL NON-HDL CHOL(LDL+VLDL) 108 <130 mg/dL (calc) [facility] Comment: For patients with diabetes plus 1 major ASCVD risk factor, treating to a non-HDL-C goal of <100 mg/dL (LDL-C of <70 mg/dL) is considered a therapeutic option. Test Performed at: [email or web address] [address] [place] [address] John Tenorio D.O., MPH Blood 03/08/2021 9:35 AM CDT 03/08/2021 9:36 AM CDT us Orlando Ortega Jr., MD CHEMISTRY ORDERABLES Final Result [facility] [address] [place] [address] * MICROALBUMIN/CREATININE RATIO, RANDOM UR (03/16/2020 9:50 AM CDT) MICROALBUMIN, URINE <1.2 No Reference Range mg/dL 03/16/2020 7:06 PM CDT [facility] CREATININE, URINE 32.2 29.0 - 226.0 mg/dL 03/16/2020 7:06 PM CDT [facility] Comment:Reference Range vari es with fluid intake and diet. Urine URINE SPECIMEN OBTAINED BY CLEAN CATCH PROCEDURE / Unknown Collection / Unknown 03/16/2020 9:50 AM CDT 03/16/2020 3:27 PM CDT Narrative [facility] - 03/16/2020 7:06 PM CDT Condition Microalbumin/Creat ratio Normal Males <17 Normal Females <25 Microalbuminuria Males 17-299 Microalbuminuria Females 25-299 Overt proteinuria >=300 Unable to calculate urine microalbumin/creatinine ratio because urine microalbumin result is outside of reportable range. us Orlando Ortega Jr., MD URINE ORDERABLES Final Res ult [facility] IN# [id number] [address] [place] [address] from Last 3 Months or Most Recently Relevant to Health Maintenance Insurance MEDICARE PART A AND B Advance Directives For more information, please contact: [phone] Documents on File Type Date Recorded Patient Table Games Dealer Expl anation Advance Directive POA 11/30/2016 3:02 PM A dvance Directive POA Advance Directive Living Will 11/30/2016 3:02 PM Advance Directive Living Will * Full Code (Latest Code Status on File) Date Activated Date Inactivated Comments 08/08/2024 6:46 AM 08/08/2024 11:44 AM * Full Code Date Activated Date Inactivated Comments 07/25/2024 7:08 AM 07/25/2024 11:30 AM
--- NOTE | 2025-08-20 09:32 | PC.CHAP ---
Pastoral Care Encounter/Spiritual Assessment Type of Contact [] Declined braid pattern setter visit [] Patient/Family/Request visit [] Outpatient visit [] Follow-up visit [] Physician referral [] Code/Alert [x] Routine visit [] Staff referral [] Actively dying [] Patient sleeping [x] Family support [] [] Out of room [] Palliative care [] [] Receiving care in room [] Pre-surgical visit [] Trauma [] Long length of stay [] ICU visit [] Other: Relational/Emotional Strength [x] Patient feels connected with others/family/visitors/staff [] Distress [] Loneliness/isolation [] Abandonment Spirituality of Patient [x] Person of Belen [] Attends Rastafarian of their Belen [x] Believes in Prayer [] Reads Bible or Jehovah'S Witness materials [] There are Spiritual issues to be addressed Clock Maker Interventions [x] Prayer [x] Active listening [] Non-anxious presence [x] Spiritual/emotional support [] Crisis/trauma care [] Spiritual counseling [] Bereavement support [] Provided bereavement packet [] Provided Bible/devotional materials [] Provided toy/stuffed animal, coloring book to patient or family member [] Provided Communion [] Anointing/[place] [] Salvation [x] Completed spiritual assessment [] Other: Impact on Illness or Injury [] Angry [] Fearful [] Anxious [] Often cries [] Exhaustion [] Unable to work [] Unable to attend anabaptist [] Unable to walk/stand [] Unable to read [] Unable to drive [] Unable to eat/drink [] Unable to sleep [] Unable to be with family [] Patient intubated [] Other: Summary Time spent with patient 5 min
--- NOTE | 2025-08-20 11:17 | PM.DCS ---
Discharge Providers Date of Admission: 08/19/25 15:46 Date of Discharge: August 20, 2025 Attending Provider at Admission: Yenifer Jorgensen MD Attending Provider at Discharge: Lexy Saleem NP Primary Care Provider: Cheko Palacios DO Diagnoses at Discharge Discharge Diagnosis 1. Closed subcapital fracture of left femur, initial encounter: 2. Arthritis: 3. GERD (gastroesophageal reflux disease): 4. Contusion of left hip: 5. Diabetes: 6. Hypertension: Reason for Visit Reason for Visit: Bipolar total hip arthoplasty Brief History: Admission: Cheyenne Hall is a 85 year old female with prior medical history of DM, GERD, bursitis, long-term steroid use, colic, anxiety, cholecystectomy 04/2024, fall, and lumbar stenosis presenting with complaints of hip pain. On 07/26/2025 patient had a mechanical fall injuring her head, right leg, left wrist, and left knee. She was seen at this ED where she had x-ray of her knee and wrist. Knee imaging was negative. Wrist x-ray revealed closed distal radius fracture, and she underwent open reduction internal fixation (07/29/25). Patient had continued complaints about her left side especially when attempting to ambulate. She had scheduled follow-up on 08/11/2025 where additional imaging to her left hip that revealed a displaced subcapital left hip fracture. Today, patient returned to [facility] for scheduled bipolar hip arthroplasty. In the ED, BP 166/88, HR 99, RR 16, T97.7, O2 97% on room air. WBC 10.24, Hgb 12.5, PLT 345. NA 134, chloride 93. Glucose 137. CMP otherwise unremarkable. Urinalysis negative. Will admit to the hospitalist service for further evaluation and treatment. Orthopedic surgery following, Dr. Jorgensen, recommendations appreciated Hospital Course Hospital Course 1. Closed subcapital fracture of left femur, initial encounter: Secondary to fall Surgery consulted, Dr. Jorgensen, recommendations appreciated Hip surgery planning Pain management 2. Contusion of left hip: Pain management as above 3. Diabetes: On home metformin, hold Sliding scale Glucose 137 A1c 4. Hypertension: BP 166/88, HR 99 Continue home losartan BP monitoring 5. Arthritis: Patient pain is managed at home with methadone 6. GERD (gastroesophageal reflux disease): On home pantoprazole, hold Protonix Discharge: Patient to discharge in stable condition. Patient arrived to hospital post fall and underwent a Left bipolar hip arthroplasty with Dr. Jorgensen. Patient evaluated by physical therapy this morning with recommendations to go home with home health services. Patient to follow-up with Dr. Jorgensen outpatient. Continue all home medications as prior to admission. Follow-up with primary care provider in 1 to 2 days of discharge. All questions and concerns addressed with patient prior to discharge. Physical Exam Narrative: General: A&Ox4 , no apparent distress. On room air. HEENT: Normo-cephalic, atraumatic, grossly unremarkable exam Cardio: NSR, normal S1-S2 without any murmurs, rubs, or gallops and JVD normal Respiratory: Clear breathing on auscultation w/o any wheezes, stridor, rhonchi GI: Abd soft, non-tender, non-distended, normo-active bowel sounds present Neuro: Moves all extremities, no sensory deficits, Normal speech Behavior: Appropriate and cooperative Extremities: Dressing to left hip noted to be dry and intact. Ice pack in place. Adequate palpable pulses. Urinary Catheter Management: Kurtz: Cath Placed During This Visit: yes, but has since been removed by the nurse Reason for Continuing Indwelling Catheter: Perioperative Use in Selected Surgeries Urinary Catheter Date of Insertion: 08/19/25 Urinary Catheter Time of Insertion: 15:05 Date Urinary Catheter Removed: 08/20/25 Time Urinary Catheter Discontinued: 06:30 Discharge Data Studies Completed and Pending Completed Studies During Hospitalization Category Date Time Status XR pelvis 1-2V* [id number] Routine Exams 08/19/25 17:07 Completed Radiology Impressions Pelvis X-Ray 08/19/25 17:07 IMPRESSION: Left hip prosthesis. Laboratory Results WBC 8.30 10^3/uL (3.29-11.43) 08/20/25 03:29 RBC 4.50 10^6/uL (3.85-5.65) 08/20/25 03:29 Hgb 11.50 g/dL (11.27-16.99) 08/20/25 03:29 Hct 35.8 % (36-47) L 08/20/25 03:29 MCV 79.6 fl (85-98) L 08/20/25 03:29 MCH 25.6 pg (27-33) L 08/20/25 03:29 MCHC 32.1 g/dL (30-55) 08/20/25 03:29 RDW 15.5 % (12.1-15.1) H 08/20/25 03:29 Plt Count 294 10^3/cmm (157-399) 08/20/25 03:29 MPV 8.5 fL (7.4-10.4) 08/20/25 03:29 Neut % (Auto) 73.2 % 08/20/25 03:29 Lymph % (Auto) 15.3 % 08/20/25 03:29 [place] % (Auto) 8.0 % 08/20/25 03:29 Eos % (Auto) 2.8 % 08/20/25 03:29 Baso % (Auto) 0.5 % 08/20/25 03:29 Neut # (Auto) 6.08 10^3/uL (1.8-7.7) 08/20/25 03:29 Lymph # (Auto) 1.3 10^3/uL (0.8-4.8) 08/20/25 03:29 [place] # (Auto) 0.7 10^3/uL (0.2-0.9) 08/20/25 03:29 Eos # (Auto) 0.2 10^3/uL (0.0-0.8) 08/20/25 03:29 Baso # (Auto) 0.0 10^3/uL (0.0-0.1) 08/20/25 03:29 Nucleated RBC % (auto) 0 % 08/20/25 03:29 Nucleated RBCs # 0.0 /100WBC 08/20/25 03:29 Sodium 134 mmol/L (136-145) L 08/19/25 12:55 Potassium 4.3 mmol/L (3.5-5.1) 08/19/25 12:55 Chloride 93 mmol/L (98-107) L 08/19/25 12:55 Carbon Dioxide 26 mmol/L (22-29) 08/19/25 12:55 Anion Gap 19.3 (5-19) H 08/19/25 12:55 BUN 13 mg/dL (8-23) 08/19/25 12:55 Creatinine 0.8 mg/dL (0.5-0.9) 08/19/25 12:55 GFR Calculation Not Reportable 08/19/25 12:55 Glucose 137 mg/dL (65-115) H 08/19/25 12:55 POC Glucose 121 mg/dL (70-110) H 08/19/25 13:35 Calculated Osmolality 280 mOsm/kg (285-295) L 08/19/25 12:55 Calcium 10.2 mg/dL (8.5-10.5) 08/19/25 12:55 Total Bilirubin 0.3 mg/dL (0.15-1.2) 08/19/25 12:55 AST 16 U/L (0-32) 08/19/25 12:55 ALT 8 U/L (0-33) 08/19/25 12:55 Alkaline Phosphatase 99 U/L (35-105) 08/19/25 12:55 Total Protein 6.8 g/dL (6.6-8.7) 08/19/25 12:55 Albumin 4.0 g/dL (3.5-5.2) 08/19/25 12:55 Globulin 2.8 g/dL (1.3-4.6) 08/19/25 12:55 Urine Color Yellow (Yellow) 08/19/25 15:08 Urine Appearance Clear (CLEAR) 08/19/25 15:08 Urine pH 7.5 (5-7) 08/19/25 15:08 Ur Specific [place] 1.006 (1.005-1.030) 08/19/25 15:08 Urine Protein Negative (Negative) 08/19/25 15:08 Urine Glucose (UA) Negative (Normal) 08/19/25 15:08 Urine Ketones Negative (Negative) 08/19/25 15:08 Urine Blood Negative (Negative) 08/19/25 15:08 Urine Nitrate Negative (Negative) 08/19/25 15:08 Urine Bilirubin Negative (Negative) 08/19/25 15:08 Urine Urobilinogen 0.2 mg/dL (Negative) 08/19/25 15:08 Ur Leukocyte Esterase Negative (Negative) 08/19/25 15:08 Urine RBC 0-2 /hpf (0-2) 08/19/25 15:08 Urine WBC 0-5 /hpf (0-5) 08/19/25 15:08 Ur Squamous Epith Cells 0-5 /hpf (0-5) 08/19/25 15:08 Amorphous Sediment Not Reportable 08/19/25 15:08 Urine Bacteria None seen /hpf (NONE) 08/19/25 15:08 Hyaline Casts 0.40 /lpf 08/19/25 15:08 Vitals Last Vital Signs Temp 98.2 F 08/20/25 08:18 Pulse 100 08/20/25 08:18 Resp 16 08/20/25 08:18 BP 149/80 08/20/25 08:18 Pulse Ox 94 08/20/25 08:18 O2 Del Method Room Air 08/20/25 04:39 Discharge Plan Discharge Patient Disposition: Home Health Service Condition: Stable Prescriptions: No Action ondansetron HCl 4 mg tablet 4 mg PO Q8H PRN (Reason: nausea and vomiting) Qty: 30 3RF (DME) Fast Form, Left See Rx Instructions .Route .MEDSUPPLY Qty: 1 0RF Rx Instructions: As directed prednisone 10 mg tablet 10 - 20 mg PO QAM Qty: 180 1RF alprazolam [Xanax] 0.25 mg tablet 0.25 mg PO TID PRN (Reason: anxiety) Qty: 90 5RF metformin 500 mg tablet 500 mg PO BID Qty: 180 3RF losartan 50 mg tablet 50 mg PO QAM Qty: 90 3RF methadone 5 mg tablet 7.5 mg PO Q8H 30 Days Qty: 135 0RF nystatin 100,000 unit/gram cream 1 applic topical BID Qty: 30 5RF pantoprazole 40 mg tablet,delayed release (DR/EC) 40 mg PO DAILY epinephrine [EpiPen 2-Jaret] 0.3 mg/0.3 mL auto-injector 0.3 mg IM Q10M PRN (Reason: anaphylaxis) Qty: 2 0RF Rx Instructions: for 2 doses diclofenac sodium [Aspercreme Arthritis Pain] 1 % Gel 2 - 4 g TOPICAL QID PRN (Reason: Pain) meloxicam 15 mg tablet 15 mg PO DAILY Other Ambulatory Orders: DME: Walker (Order) Location: None Selected Ordered By: Lexy Saleem Referrals: Yenifer Jorgensen MD [Physician, Orthopedics] - 09/01/25 3:15 pm Discharge Diet: Advance as tolerated Discharge Activity: Increase activity as tolerated, Limit activity as instructed, Use walker/crutches as instructed and As per PT/OT instructions Patient Instructions: Acute Wound Care (DC), Opioid Safety, Post Anesthesia Care, Patient Portal & Dahlia Instructions Activity Restrictions/Additional Instructions: Posterior hip precautions. Ambulation, gait training, and strengthening per physical therapy. Weightbearing as tolerated. You may shower and get your hip wet, but do not soak in water. Additionally, leave your dressing in place until you are seen in the office unless it lifts up and begins to leak. Discharge Attestations Time Spent in Discharge Care*: greater than 30 min Quality Metrics Clinical Quality Measures [ No reported AMI, CVA or VTE this stay] Coding Level of Care Code 17606 Total time (in minutes) for Discharge: 35 Diagnoses Closed subcapital fracture of left femur, initial encounter S72.012A Encounter type: initial encounter Fracture type: closed Arthritis M19.90 GERD (gastroesophageal reflux disease) K21.9 Contusion of left hip S70.02XA Diabetes E11.9 Hypertension I10
[2025-08-20 11:56] VITALS: BP 169/80; PULSE 107; RESP 17; TEMP 36.4; O2SAT 95
--- NOTE | 2025-08-20 13:49 | P.PN_ITS ---
Subjective 2 Subjective: Patient is seen in her room. Her family is present she has done well with ambulation and is comfortable. She would like to be discharged home. Medications: Reviewed: Yes Vitals/I&O/Wt Last Vital Signs Temp 97.6 F 08/20/25 11:56 Pulse 107 H 08/20/25 11:56 Resp 17 08/20/25 11:56 BP 169/80 08/20/25 11:56 Pulse Ox 95 08/20/25 11:56 O2 Del Method Room Air 08/20/25 04:39 08/19/25 08/20/25 08/20/25 22:59 06:59 14:59 Intake Total 450 / 550 560 / 1110 360 / 360 Output Total 1650 / 1650 2300 / 3950 Balance -1200 / -1100 -1740 / -2840 360 / 360 Weight last 48 hrs Weight 125 lb Weight 123 lb Weight 123 lb Physical Exam 2 Const: COMMON NORMALS: no acute distress, average body habitus, patient oriented x3 and alert GENERAL APPEARANCE: cooperative and comfortable O RIENTATION/CONSCIOUSNESS: Yes awake HENMT: COMMON NORMALS: normocephalic and atraumatic HEAD & SCALP: n ormocephalic and atraumatic Eye: GENERAL EYE: appearance normal, both eyes and all related structures Chest: COMMONS NORMALS: normal inspection of the chest Resp: COMMON NORMALS: normal respiratory effort EFFORT & INSPECTION: Yes able to speak in complete sentences and Yes symmetric chest movement Extremity: LEFT LOWER EXTREMITY: Yes hip joint (Dressing is dry and intact) Left hip: Yes inspection (No significant swelling or ecchymosis), Yes ROM (Not evaluated) and Yes neurovascular exam (Intact distally) Neuro: COMMON NORMALS: patient oriented x3 SENSORIUM/ORIENTATION: Yes alert Psych: COMMON NORMALS: mental status grossly normal APPEARANCE: Yes grossly normal ATTITUDE: Yes calm and Yes engaged ATTENTION/CONCENTRATION: Yes attention grossly intact Skin: COMMON NORMALS: no rashes or lesions noted GENERAL SKIN EXAM: no rashes or lesions noted Urinary Catheter Management: Kurtz: Cath Placed During This Visit: yes, but has since been removed by the nurse Reason for Continuing Indwelling Catheter: Perioperative Use in Selected Surgeries Urinary Catheter Date of Insertion: 08/19/25 Urinary Catheter Time of Insertion: 15:05 Date Urinary Catheter Removed: 08/20/25 Time Urinary Catheter Discontinued: 06:30 Data 08/20/25 03:29 08/19/25 12:55 A&P Assessment and plan 1. Closed subcapital fracture of left femur, initial encounter: Patient underwent uneventful bipolar hip arthroplasty on the left yesterday for a subacute subcapital hip fracture. She did well following this. She has worked with physical therapy today, and she is having no issues. She is seen in her room with her family, and they are ready for her to be discharged home with home health. She was followed by the medicine service while here anticipating possible medical issues, but she had none. She is discharged to follow-up with me in the office as scheduled. PDMP PDMP Reviewed: Not Reviewed Attestations 2 Medical Necessity Statement*: Postoperative physical therapy and ambulation. Coding Level of Care Code Acute Code for [facility] Fwd Diagnoses Closed subcapital fracture of left femur, initial encounter S72.012A Encounter type: initial encounter Fracture type: closed
[2025-08-20 14:19] VITALS: BP 169/80; PULSE 107; RESP 17; TEMP 36.4; O2SAT 95
--- NOTE | 2025-08-20 16:49 | PC.NURSE ---
Discussed discharge with patient and daughter. Discussed new medications and follow up appointments, signs and symptoms of infection and about crossing legs. Abductor pillow sent with patient.
== END 2025-08-20 14:30 | disposition home health service (06) | DRG 522 ==
LOC: MEDSURG 17:11
PROVIDERS: Admitting Provider Specialist; PCP Family Medicine
PROC: 0SRB0JA Replacement of Left Hip Joint with Synthetic Substitute, Uncemented, Open Approach (ICD-10-PCS; CPT 27130; principal; 2025-08-19 14:00)
DX: S72.012A Unspecified intracapsular fracture of left femur, initial encounter for closed fracture (principal); E11.9 Type 2 diabetes mellitus without complications; F41.9 Anxiety disorder, unspecified; I10 Essential (primary) hypertension; M19.90 Unspecified osteoarthritis, unspecified site; K21.9 Gastro-esophageal reflux disease without esophagitis; W19.XXXA Unspecified fall, initial encounter; Z90.49 Acquired absence of other specified parts of digestive tract; Z79.52 Long term (current) use of systemic steroids; Z79.899 Other long term (current) drug therapy; Z79.84 Long term (current) use of oral hypoglycemic drugs; Z88.2 Allergy status to sulfonamides; Z88.9 Allergy status to unspecified drugs, medicaments and biological substances; Z79.891 Long term (current) use of opiate analgesic
CPT/HCPCS: 36415; 36416; 51702; 72170; 80053; 81001; 82962; 85025; 97116; 97161; 97167; 97530; A4216; A4649; C1713; C1776; J0131; J0666; J0690; J1171; J2250; J2405; J2704; J3010; J3373; J3490; J7030; J7512; J9999